=== PATIENT | female | born 1955 | race Caucasian/White ===

== ENCOUNTER 2016-05-18 13:09 | Inpatient (IN) ==
--- NOTE | 2016-05-18 14:33 | PROVIDER DOCUMENTATION ---
HPI-General Adult - General Source: patient, family - History of Present Illness -Gen Adult Nature of Presenting Problems: 61 y/o female presents to the ER with complaint of SOB, cough, fever x2 days. Pt states that she went to [place] a few days ago for intestinal blockage. Pt family states that she has a hx of blockage problems and for that reason she is on TPN treatment. Family of pt states that they were told to come to ER if fever occurred. Location of Pain/Injury: reports: head (headache) Onset/Duration: reports: 2 days ago Timing: reports: still present Associated Symptoms: reports: constipation, fever/chills, headaches, sinus congestion/drainage, shortness of breath, weakness <Amanda Tan - Last Filed: 05/18/16 15:30> <Michel Lopez - Last Filed: 05/18/16 19:29> - General Chief Complaint: General Adult Stated Complaint: Weakness Time Seen by Provider: 05/18/16 14:10 Allergies/Adverse Reactions: Patient Allergies Allergy/AdvReac Type Severity Reaction Status Date / Time No Known Allergies Allergy Verified 05/18/16 13:23 Home Medications: Home Medication List Medication Instructions Recorded Confirmed Last Taken Type Magnesium Oxide [Magnesium] 400 mg PO BID 12/10/12 05/18/16 02/05/15 History Tiotropium [place] Inhaler 1 puff INH RTDAILY 12/10/12 05/18/16 1 Day Ago History [Spiriva] Metoprolol Succinate E.r. [Toprol 100 mg PO DAILY #30 tablet 12/28/12 05/18/16 02/05/15 Rx Xl] Alprazolam [Xanax] 1 mg PO TID 06/18/13 05/18/16 02/05/15 History Hydrocodone/APAP 7.5 mg/325 mg 10 mg PO TID PRN PRN 06/18/13 05/18/16 02/05/15 History [[place]-7.5] Omeprazole [Prilosec] 40 mg PO BID #0 capsule. 06/21/13 05/18/16 1 Day Ago Rx Docusate Sodium [Colace] 100 mg PO DAILY #10 capsule 04/23/16 05/18/16 Unknown Rx Na Phos,M-B/Na Phos,Di-Ba [Fleet 133 ml IL HS PRN PRN #3 enema 04/23/16 Unknown Rx Enema] Albuterol Sulfate [Proair 90 mcg IH TID 05/18/16 05/18/16 Unknown History Respiclick] Budesonide/Formoterol Inhaler 60 puff .SEE ORDER DAILY 05/18/16 05/18/16 Unknown History [Symbicort 160/4.5 Microgm Inhaler] Lisinopril 20 mg PO DAILY 05/18/16 05/18/16 Unknown History Mirtazapine 15 mg PO DAILY 05/18/16 05/18/16 Unknown History Potassium Chloride 10% Liquid 20 meq PO DAILY 05/18/16 05/18/16 Unknown History TPN Electrolytes [TPN Electrolytes] 1,600 ml IV DAILY 05/18/16 05/18/16 Unknown History Review of Systems - Adult - REVIEW OF SYSTEMS - ADULT ROS:: unobtainable per condition Constitutional: reports: chills, fever Eyes: reports: no symptoms reported Ears, Nose, Mouth & Throat: reports: no symptoms reported Cardiovascular: reports: no symptoms reported Respiratory: reports: cough, shortness of breath, wheezing Gastrointestinal: reports: constipation, poor appetite (TPN), other (Short Bowel ) Genitourinary: reports: no symptoms reported Musculoskeletal: reports: no symptoms reported Integumentary: reports: no symptoms reported Neurological: reports: headache/migraines. denies: seizure Psychiatric: reports: no symptoms reported Endocrine: reports: no symptoms reported Hematologic/Lymphatic: reports: no symptoms reported Allergic/Immunologic: reports: no symptoms reported All Other Systems: Reviewed and Negative <Amanda Tan - Last Filed: 05/18/16 15:30> Past History - Adult - PAST MEDICAL HISTORY-ADULT Review of Records: reports: Nursing Assessment Review, Medications Reviewed Cardiovascular: reports: CAD, HTN, [place] Respiratory: reports: asthma, COPD Gastrointestinal: reports: GERD, IBS, other (obstruction) Obstetrical/Gynecological: reports: other (cervical ca) Psychiatric: reports: anxiety, depression Endocrine/Immune: reports: thyroid disorder - PRIOR SURGERIES/PROCEDURES Surgical/Procedure History: reports: appendectomy, cardiac stent, bowel surgery (colon resection), other (partial thyroidectomy) - PRIOR HOSPITALIZATIONS Prior Hospitalizations: reports: for similar symptoms - IMMUNIZATION STATUS Childhood Immunizations: See Nurse Assessment Flu Vaccine: See Nurse Assessment - FAMILY HISTORY Family History: reviewed, not pertinent - SOCIAL HISTORY Smoking: cigarettes <Amanda Tan - Last Filed: 05/18/16 15:30> Physical Exam-General - CONSTITUTIONAL General Appearance: mild distress, thin, slow to respond - EYES Eyes: PERRL/EOMI, pink conjunctivae - HEAD, EARS, NOSE, MOUTH & THROAT HENMT: moist mucous membranes, normal ENT inspection - NECK Neck: supple, normal inspection - RESPIRATORY Respiratory: rhonchi, wheezing - CARDIOVASCULAR Cardiovascular: normal peripheral pulses, regular rate, rhythm - MUSCULOSKELETAL Back Exam: normal inspection, no CVA tenderness Extremity: non-tender, normal inspection - SKIN Integumentary: normal color, warm/dry - NEUROLOGIC Neurologic: grossly normal, no motor/sensory deficits - PSYCHIATRIC Psych/Mental Status: normal mood/affect, normal thought content, normal thought process, oriented x 3 <Amanda Tan - Last Filed: 05/18/16 15:30> Progress - EKG 1 Time of EKG reading by physician:: 15:20 EKG Read and Signed by:: Syeda Garcia EKG Interpretation (*Must complete 3 of following elements*): Normal Rate: 97 Rhythm: normal sinus rhythm [place]: normal (T wave changes) <Amanda Tan - Last Filed: 05/18/16 15:30> - PLAN OF CARE/RESULTS Progress/Plan/Lab Results: Vital Signs - 24 hr 05/18/16 05/18/16 05/18/16 13:18 15:21 16:46 Temperature 98.9 F Pulse Rate 104 H 97 H 103 H Respiratory 20 18 20 Rate Blood Pressure 128/83 127/76 O2 Sat by Pulse 98 92 L Oximetry Orders Category Date Time Status Cardiac Monitoring DIRECTED Care 05/18/16 14:47 Active Saline Loc NOW Care 05/18/16 14:47 Active CHEST-2 VIEWS [RAD] Stat Exams 05/18/16 14:[address] ABD/PELVIS W/ IV CONT ONLY [CT] Stat Exams 05/18/16 14:50 Taken BLOOD CULTURE [BLDCUL] Stat Lab 05/18/16 15:24 Results CBC WITH ELECTRONIC DIFF [HEME] Stat Lab 05/18/16 13:25 Completed CK PROFILE [SP CHEM] Stat Lab 05/18/16 13:25 Completed COMPREHENSIVE METABOLIC PANEL [CHEM] Stat Lab 05/18/16 13:25 Completed Flu Swab [INFLUENZA SCREEN A/B] Stat Lab 05/18/16 15:17 Completed LIPASE [CHEM] Stat Lab 05/18/16 13:25 Completed MAGNESIUM [CHEM] Stat Lab 05/18/16 13:25 Completed PRO B-NATRIURETIC PEPTIDE Stat Lab 05/18/16 13:25 Completed PROTIME WITH INR [COAG] Stat Lab 05/18/16 13:25 Completed PTT [COAG] Stat Lab 05/18/16 13:25 Completed TROPONIN T Stat Lab 05/18/16 13:25 Completed URINALYSIS W/POSS RFLX CULT [URINALYSIS] Stat Lab 05/18/16 14:47 Uncollected 0.9% Sodium Chloride Inj [Ns] 1,000 ml Med 05/18/16 14:47 Discontinued IV 999 mls/hr Albuterol 2.5MG/Ipratrop 0.5MG [Duoneb (A & A)] Med 05/18/16 14:47 Discontinued 3 ml INH NOW ONE Aspirin Med 05/18/16 14:47 Discontinued 325 mg PO STAT STA Aerosol Treatments Routine Oth 05/18/16 14:48 Completed Aerosol Treatments Stat Oth 05/18/16 14:48 Completed EKG [EKG] Stat Ther 05/18/16 14:47 Ordered Laboratory Tests 05/18/16 05/18/16 05/18/16 13:25 13:25 13:25 WBC 6.49 RBC 3.13 L Hgb 9.1 L Hct 27.6 L MCV 88.2 MCH 29.1 MCHC 33.0 RDW Std Deviation 15.3 H Plt Count 142 MPV 12.1 H Immature Gran % (Auto) 0.0 Neut % (Auto) 84.5 H Lymph % (Auto) 6.[address] [place] % (Auto) 8.8 Eos % (Auto) 0.0 Baso % (Auto) 0.2 Immature Gran # (Auto) 0.00 Neut # (Auto) 5.49 Lymph # (Auto) 0.[address] [place] # (Auto) 0.57 Eos # (Auto) 0.00 Baso # (Auto) 0.01 PT INR PTT (Actin FS) Sodium 120 L* Potassium 3.9 Chloride 88 L Carbon Dioxide 21 L Anion Gap 11 BUN 16 Creatinine 0.6 Estimated GFR/1.73 m2 > 60 BUN/Creatinine Ratio 27 Glucose 119 H Calculated Osmolality 245 Calcium 7.8 L Magnesium 1.6 Total Bilirubin 0.42 AST 21 ALT 15 Alkaline Phosphatase 121 H Creatine Kinase 39 Troponin T [id number] Pept 839 H Total Protein 5.6 L Albumin 2.5 L Globulin 3.1 Albumin/Globulin Ratio 0.8 Lipase 15 05/18/16 05/18/16 13:25 13:25 WBC RBC Hgb Hct MCV MCH MCHC RDW Std Deviation Plt Count MPV Immature Gran % (Auto) Neut % (Auto) Lymph % (Auto) [place] % (Auto) Eos % (Auto) Baso % (Auto) Immature Gran # (Auto) Neut # (Auto) Lymph # (Auto) [place] # (Auto) Eos # (Auto) Baso # (Auto) PT 10.7 INR 1.01 PTT (Actin FS) 36.6 H Sodium Potassium Chloride Carbon Dioxide Anion Gap BUN Creatinine Estimated GFR/1.73 m2 BUN/Creatinine Ratio Glucose Calculated Osmolality Calcium Magnesium Total Bilirubin AST ALT Alkaline Phosphatase Creatine Kinase Troponin T < 0.010 Sxz-[id number] Pept Total Protein Albumin Globulin Albumin/Globulin Ratio Lipase - CT/MRI 1 CT Study: Abdomen, Pelvis Impression: See EMR Report (Bibasilar atelectasis and trace left effusion; Multiple hepatic cysts with a massive 12cm R lobe cyst that is larger than 2014 ; Calcified stone in GB lumen and marked GB distention. Also the CBD is dilated to 1cm. It was normal in 2014. Consider occult distal obstruction. Trace fluid around GB; Multiple distended loops of bowel worrisome for obstruction. No specific transition point but there are nonspecific collapsed bowel loops near the root of mesentary so this is a potential point of obstruction.) CT Results: See report - CONSULTS/PCP/HOSPITALIST Notification #1 *Consult/PCP/Hospitalist*: Dr. Reese (Hospitalist) Time Discussed: 19:29 Consult Disposition: Admit - CHANGE OF SHIFT REPORT (ED Provider) Report Given and Care Transferred to:: Dr. Vasquez Time of Transfer: 18:00 Items Pending: CT/MRI Results <Michel Lopez - Last Filed: 05/18/16 19:29> Departure <Amanda Tan - Last Filed: 05/18/16 15:30> - Departure Time of Disposition Order: 19:29 Certified Medical Emergency: Emergent <Michel Lopez - Last Filed: 05/18/16 19:29> - Departure DIAGNOSIS: Hyponatremia, Generalized weakness Bowel obstruction Qualifiers: Intestinal obstruction type: unspecified Qualified Code(s): K56.60 - Unspecified intestinal obstruction Anemia Qualifiers: Anemia type: unspecified type Qualified Code(s): D64.9 - Anemia, unspecified Disposition: ADMITTED INPATIENT 09 Condition: Stable Referrals: Ricco Sepulveda MD [Primary Care Provider] - Attestation - Scribe Verification/Attestation Scribe:: Amanda Tan Acting as Scribe for:: Syeda Garcia Scribe documention review:: This chart was documented by a scribe and accurately reflects the service the provider performed and the decisions made by the provider. <Amanda Tan - Last Filed: 05/18/16 15:30> - Scribe Verification/Attestation Scribe:: Michel Lopez Acting as Scribe for:: Oscar Vasquez Scribe documention review:: This chart was documented by a scribe and accurately reflects the service the provider performed and the decisions made by the provider. <Michel Lopez - Last Filed: 05/18/16 19:29> Physician Attestation
[2016-05-18] MEDS ORDERED: DUONEB (A & A) INH ONE (14:47)
[2016-05-18] MEDS ORDERED: ASPIRIN PO STA (14:47)
[2016-05-18] MEDS ORDERED: NS 1,000 ML IV ONE (14:47)
[2016-05-18 15:09] LABS: MANUAL DIFF NEEDED? NO
[2016-05-18 15:13] LABS: BASO% 0.2 % (0.0-0.8); HEMATOCRIT 27.6 % (37.0-47.0); HEMOGLOBIN 9.1 g/dL (12.0-16.0); LYMPH# 0.42 X1000 (1.2-3.4); LYMPH% 6.5 % (20.5-51.1); MCH 29.1 PG (27-31); MCV 88.2 FL (81-99); MONO# 0.57 X1000 (0.11-0.59); MONO% 8.8 % (1.7-9.3); MPV 12.1 FL (7.4-10.4); NEUT% 84.5 % (42.2-75.2); PLT 142 X1000 (130-400); RBC 3.13 XMIL (4.2-5.4)
[2016-05-18 15:27] LABS: INR 1.01; PROTIME 10.7 Seconds (9.2-11.7); PTT 36.6 Seconds (22.0-36.0)
--- NOTE | 2016-05-18 15:29 | Diag Imaging Result Document ---
PROCEDURE NAME: CHEST-2 VIEWS - 05/18/2016 SEATED AP AND LATERAL RADIOGRAPH OF THE CHEST: COMPARISON: 04/22/2016. FINDINGS: A right PICC line is identified and is stable. The lungs are hyperinflated, stable. There is a stable calcified granuloma at the left lung base. There is stable mild scarring at the lower lung zones bilaterally. The lungs are clear otherwise. There is no definite pleural fluid collection. Cardiac silhouette is stable. IMPRESSION: Essentially stable COPD changes and mild bibasilar scarring. No definite acute pathology.
[2016-05-18 15:42] LABS: AGAP 11; ALBUMIN 2.5 g/dL (3.5-5.0); ALKALINE PHOSPHATASE 121 U/L (32-104); BUN 16 mg/dL (8-22); CALCIUM 7.8 mg/dL (8.8-10.2); CHLORIDE 88 mmol/L (98-107); CK PROFILE 39 U/L (24-173); COSMO 245; GOT 21 U/L (10-30); GPT 15 U/L (10-36); LIPASE 15 U/L (13-60); MAGNESIUM 1.6 mg/dL (1.5-2.7); POTASSIUM 3.9 mmol/L (3.5-5.1); SODIUM 120 mmol/L (136-145); TCO2 21 mmol/L (25-35); TOTAL BILIRUBIN 0.42 mg/dL (0.20-1.00); TOTAL PROTEIN 5.6 g/dL (6.3-8.3)
[2016-05-18] MEDS ORDERED: MORPHINE IV ONE (20:16)
[2016-05-18 22:18] LABS: URINE MICRO REVIEW NEEDED? NO; URINE SOURCE CLEAN CATCH
[2016-05-18 22:28] LABS: BILIRUBIN URINE NEGATIVE (NEGATIVE); BLOOD URINE NEGATIVE (NEGATIVE); COLOR YELLOW; GLUCOSE URINE NEGATIVE (NEGATIVE); LEUKOCYTES URINE NEGATIVE (NEGATIVE); NITRITE URINE NEGATIVE (NEGATIVE); PROTEIN URINE NEGATIVE (NEGATIVE); SP GRAVITY URINE 1.015; TURBIDITY URINE CLEAR (CLEAR); UROBILINOGEN URINE NORMAL (NORMAL)
[2016-05-18 22:30] LABS: UR EPITHELIAL CELLS <10 /HPF (<10); URINE BACTERIA 2+ /HPF; URINE CULTURE NEEDED? YES; URINE RBC <10 /HPF (<10); URINE WBC <10 /HPF (<10)
--- NOTE | 2016-05-18 22:33 | HISTORY AND PHYSICAL ---
CHIEF COMPLAINT: Weakness and not feeling well for several days. HISTORY OF PRESENTING ILLNESS: A 61-year-old female with a history of hypertension and COPD had presented to the emergency department complaining of having weakness and not feeling well. She was evaluated in the ER, she was found to have a low sodium and also there was issues regarding some constipation that she has had for several days. She initially had gone to [facility] several days ago and she apparently had x-rays and scanning done that did show that she had some intestinal obstruction and was told to follow up. On today's imaging it did also show some loops of bowels. However patient is currently asymptomatic. At time my examination she had denied any headache, fever, chills, chest pain, shortness of breath, hemoptysis or weight changes but complained of just not feeling well. PAST MEDICAL HISTORY: Includes hypertension, COPD. PAST SURGICAL HISTORY: None. ALLERGIES: No known drug allergies. CURRENT MEDICATIONS: As listed in the MAR. SOCIAL HISTORY: A 40 pack year history of smoking. Denies any history of alcohol or illicit drug use. FAMILY HISTORY: No history of coronary disease. REVIEW OF SYSTEMS: Twelve point review of systems is as in HPI. Other systems negative. PHYSICAL EXAMINATION: GENERAL: Cooperative, friendly female, she is resting comfortably now. VITAL SIGNS: Temperature 98.9 degrees, pulse 104, respirations 20, blood pressure 128/83, she is saturating 98%. HEENT: Atraumatic, normocephalic. Extraocular movements intact. PERRLA. NECK: No masses. CHEST: Clear to auscultation. CARDIOVASCULAR: Regular rate and rhythm. ABDOMEN: Soft. Positive bowel sounds. EXTREMITIES: No edema. NEURO: She is awake, alert, oriented x3. : No bladder distention. SKIN: Warm. LABORATORIES AND STUDIES: Sodium 120, potassium 3.9, chloride 88, CO2 21, BUN is 16, creatinine 0.6, glucose 119. WBC 6.49, hemoglobin 9.1, hematocrit 27.6, platelets 142,000. ASSESSMENT: A 61-year-old female with a history of hypertension and chronic obstructive pulmonary disease presented to emergency department with complaint weakness. She was found to have laboratories that showed that she was severely hyponatremic and also she had imaging done that did show there was suspicion for intestinal obstruction however patient is asymptomatic. Patient will need hospitalization for further evaluation and management. 1. Hyponatremia. 2. Generalized weakness. 3. Incidental finding of intestinal obstruction on CAT scan. However this needs to be confirmed. 4. Constipation. PLAN: 1. Will admit patient to medical floor. 2. Keep patient n.p.o. and fluid restrict p.o. 3. Continue with IV fluids. 4. Will continue with abdominal exam serially and monitor clinically. 5. Will consider enema for constipation. 6. Will put patient on DVT prophylaxis with SCDs. 7. Continue follow and reassess.
[2016-05-18] MEDS ORDERED: NS 1,000 ML IV SCH (23:08)
[2016-05-18] MEDS ORDERED: ZOFRAN IV PRN (23:08)
[2016-05-19] MEDS ORDERED: VANCOMYCIN IV PER PHARMACY MISC SCH (02:45)
[2016-05-19] MEDS ORDERED: VANCOMYCIN 1,350 MG in NS 250 ML IV ONE (04:00)
[2016-05-19] MEDS: [UNRECOGNIZED DRUG - OTHER] IV SCH ×2 (04:28→09:44)
[2016-05-19] MEDS: ACETAMINOPHEN IV SCH ×2 (04:28→09:44)
[2016-05-19] MEDS ORDERED: OFIRMEV 1000 MG/ISOTONIC SOLN 100 ML IV SCH (06:00)
[2016-05-19 07:24] LABS: BASO% 0.2 % (0.0-0.8); HEMATOCRIT 28.3 % (37.0-47.0); HEMOGLOBIN 9.5 g/dL (12.0-16.0); LYMPH# 0.37 X1000 (1.2-3.4); LYMPH% 6.5 % (20.5-51.1); MANUAL DIFF NEEDED? YES; MCH 29.1 PG (27-31); MCHC 33.6 g/dL (33-37); MCV 86.8 FL (81-99); MONO# 0.41 X1000 (0.11-0.59); MONO% 7.3 % (1.7-9.3); MPV 11.8 FL (7.4-10.4); PLT 149 X1000 (130-400); RBC 3.26 XMIL (4.2-5.4)
[2016-05-19 07:44] LABS: AGAP 16; BUN 12 mg/dL (8-22); CALCIUM 7.8 mg/dL (8.8-10.2); CHLORIDE 101 mmol/L (98-107); COSMO 276; POTASSIUM 3.7 mmol/L (3.5-5.1); SODIUM 138 mmol/L (136-145); TCO2 21 mmol/L (25-35)
[2016-05-19 09:13] LABS: BANDS 10 % (0-1); LYMPHS 6 % (21-51); MONO 7 % (1-9)
[2016-05-19 09:14] LABS: HYPOCHROM 1+; TARGET CELLS OCCASIONAL
--- NOTE | 2016-05-19 09:49 | Diag Imaging Result Document ---
PROCEDURE NAME: CT ABD/PELVIS W/ IV CONT ONLY - 05/18/2016 CT ABDOMEN PELVIS WITH IV CONTRAST ONLY: TECHNIQUE: Exam performed with intravenous contrast only per request of the referring provider. A dose reduction protocol was used. Compared with 09/16/2013. FINDINGS: There is dependent atelectasis at bilateral lung bases. There is a tiny left pleural effusion. There is a calcified granuloma from old granulomatous disease at the left lung base. There is an approximately 12 cm hepatic cyst which has enlarged from approximately 9 cm on the previous exam. There are additional scattered small hepatic cysts. The gallbladder is distended. The common bile duct is distended up to 1.1 cm. There is a possible 0.8 cm noncalcified gallstone in the dependent portion of gallbladder. There is no discrete pancreatic mass or inflammation identified. There are scattered tiny pancreatic calcifications which may relate to chronic pancreatitis and/or vascular calcifications. There are few scattered tiny low-density lesions in the spleen which are nonspecific. There is mild low-density fullness of the right adrenal gland which is stable. The bilateral kidneys enhance homogeneously. There is no hydronephrosis. There are no substantially enlarged lymph nodes identified. There is some mild small-bowel distention with retained fluid. There is nondistended small bowel near the root of the mesentery. The possibility of early or partial small-bowel obstruction cannot be excluded. The patient is status post multiple colon surgeries. There is no abscess identified. There is no free air seen. There is a small amount of free fluid in the pelvis. IMPRESSION: 1. Some mildly distended small bowel with retained fluid. The possibility of early or partial small- bowel obstruction cannot be excluded. A specific transition point is not identified but there is nondistended small bowel near the root of the mesentery. Internal hernia may be a consideration. The small bowel which is distended is only mildly distended at this time, however. 2. Distended gallbladder and common bile duct. Possible small noncalcified gallstone in gallbladder. No discrete biliary obstructing lesion identified. There are scattered tiny pancreatic calcifications which may relate to chronic pancreatitis. There is no acute pancreatic inflammation identified. 3. No abscess. No free air. Small amount of free fluid in the pelvis. The on-call radiologist provided preliminary results at 6:07 p.m. on 05/18/2016. [facility]
[2016-05-19] MEDS ORDERED: ZOSYN 3.375 GM/NS 50 ML IV SCH (14:15)
[2016-05-19 14:33] LABS: FREE T4 0.79 ng/dL (0.93-1.70)
[2016-05-19] MEDS: TYLENOL PO PRN ×2 (15:42→20:45)
[2016-05-19] MEDS: PROTONIX IV SCH (15:43)
[2016-05-19] MEDS: SODIUM CHLORIDE 0.9% INJ SCH (15:43)
[2016-05-19] MEDS: NS 1,000 ML IV SCH (15:43)
--- NOTE | 2016-05-19 18:01 | PROGRESS NOTE ---
DATE: 05/19/2016 SUBJECTIVE: The patient is awake and alert. She states that she does not have an appetite. The patient did have a fever of 103 this morning. OBJECTIVE: Vital signs: Temperature 100.6 degrees, blood pressure 148/93, heart rate 102, respirations 18, O2 saturations 94% on room air. General: This is an elderly female lying comfortably in bed in no acute distress. Head: Normocephalic, atraumatic. Heart: S1, S2. Normal. Lungs: Clear to auscultation bilaterally. No crackles. No rales. Abdomen: Positive bowel sounds. Soft, nontender, nondistended. Extremities: No edema. No cyanosis. No calf tenderness. Neurologic: The patient is alert and oriented x3. LABS: White blood cell count 5.6, hemoglobin 9.5, hematocrit 28, platelets 149,000. Sodium 138, potassium 3.7, chloride 101, CO2 21, BUN 12, creatinine 0.6, glucose 106, magnesium 1.8, calcium 7.8. CT of the abdomen and pelvis reveals a mildly distended small bowel with retained fluid with the possibility of an earlier partial small bowel obstruction cannot be excluded. Distended gallbladder and common bile duct. ASSESSMENT AND PLAN: 1. High fever with gram-positive cocci bacteremia. Will follow up on the blood culture results. Will continue the Zosyn and vancomycin. Will also consult ID for further recommendations. Will also check a CT of the chest to look for occult infection. 2. Distended gallbladder and common bile duct. Will check an abdominal ultrasound and consult the general surgeon for further recommendations. 3. Hyponatremia. Resolved. 4. Distended small bowel with retained fluid. Again will await the recommendations from the general surgeon. Will keep the patient NPO for now. 5. Gastrointestinal prophylaxis. Will start the patient on IV Protonix. 6. Deep vein thrombosis prophylaxis. Will start the patient on Lovenox.
--- NOTE | 2016-05-19 18:21 | Diag Imaging Result Document ---
PROCEDURE NAME: US ABDOMEN-COMPLETE - 05/19/2016 ULTRASOUND ABDOMEN: COMPARISON: Examination is correlated with a 05/18/2016 CT abdomen. FINDINGS: The gallbladder is mildly distended, but appears less distended compared to the recent CT scan. There is sludge in the gallbladder lumen. There are a few small shadowing gallstones in the gallbladder. The gallbladder murillo are possibly slightly thickened. The common bile duct is normal caliber at 5-6 mm. There is no obvious sludge or stone identified in the visualized portion of the common bile duct. The common bile duct appears to have decreased in caliber compared to the recent CT scan. There is an approximately 12 cm hepatic cyst. There are additional small hepatic cysts. There are no abnormalities of the spleen identified. There is no ascites seen. There are no abnormalities of the bilateral kidneys identified. There is no hydronephrosis. Visualized portions of the pancreas are unremarkable. Abdominal aorta and IVC appear normal caliber. IMPRESSION: 1. Mildly distended gallbladder. The gallbladder appears less distended compared to the recent CT scan. There are a moderate amount of sludge and a few small gallstones in the gallbladder. The gallbladder murillo are possibly mildly thickened. 2. The visualized common bile duct is normal caliber at 5-6 mm. The common bile duct appears less distended when compared to the recent CT scan. 3. Large hepatic cyst which measures approximately 12 cm. Additional small hepatic cysts. [facility]
--- NOTE | 2016-05-19 18:26 | Diag Imaging Result Document ---
PROCEDURE NAME: ABDOMEN FLAT/UPRIGHT - 05/19/2016 FLAT AND UPRIGHT RADIOGRAPH THE ABDOMEN: COMPARISON: 04/22/2016. FINDINGS: There are several gas-distended loops of bowel with small air-fluid levels in the pelvis. Most of this appears to be colonic, but there probably are some mildly distended small bowel loops. Metallic clips and rianna project over the pelvis, stable. The liver is prominent, but stable. There is no evidence of large-volume free abdominal gas. IMPRESSION: Nonspecific gaseous distention of bowel as described.
--- NOTE | 2016-05-19 18:47 | Diag Imaging Result Document ---
PROCEDURE NAME: CT THORAX W/O CONTRAST - 05/19/2016 CT THORAX WITHOUT CONTRAST: No contrast administered per request of the referring provider. A dose reduction protocol was used. COMPARISON: 06/19/2013. FINDINGS: There are mild emphysematous changes which are most prominent at the lungs apices. There is atelectasis of the left lower lobe, which was not present on the previous exam. Underlying consolidation in the left lower lobe cannot be excluded. The left upper lobe appears essentially clear. The right lung appears essentially clear except for some dependent atelectasis. There are trace bilateral pleural effusions. There is no pneumothorax identified. There are no substantially enlarged mediastinal lymph nodes identified. There are calcified granulomas and calcified hilar lymph nodes on the left from old granulomatous disease. Mild emphysematous changes. IMPRESSION: Left lower lobe atelectasis. Underlying left lower lobe consolidation cannot be. Tiny bilateral pleural effusions.
[2016-05-20] MEDS ORDERED: TORADOL IV ONE (00:26)
[2016-05-20] MEDS ORDERED: VANCOMYCIN 1,250 MG in NS 250 ML IV SCH (04:00)
[2016-05-20] MEDS: TYLENOL PO PRN ×2 (05:22→21:40)
[2016-05-20] MEDS: NS 1,000 ML IV SCH ×2 (05:27→17:14)
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
[2016-05-20 06:48] LABS: MANUAL DIFF NEEDED? NO
[2016-05-20 07:06] LABS: BASO% 0.2 % (0.0-0.8); HEMATOCRIT 25.3 % (37.0-47.0); HEMOGLOBIN 8.5 g/dL (12.0-16.0); IMM GRAN# 0.03 X1000 (0.0-0.04); IMM GRAN% 0.6 % (0.0-0.5); LYMPH# 0.51 X1000 (1.2-3.4); LYMPH% 9.5 % (20.5-51.1); MCH 28.9 PG (27-31); MCHC 33.6 g/dL (33-37); MCV 86.1 FL (81-99); MONO# 0.38 X1000 (0.11-0.59); MONO% 7.1 % (1.7-9.3); NEUT% 82.6 % (42.2-75.2); PLT 153 X1000 (130-400); RBC 2.94 XMIL (4.2-5.4)
[2016-05-20 07:20] LABS: AGAP 15; ALBUMIN 2.2 g/dL (3.5-5.0); ALKALINE PHOSPHATASE 110 U/L (32-104); BUN 13 mg/dL (8-22); CALCIUM 7.6 mg/dL (8.8-10.2); CHLORIDE 98 mmol/L (98-107); COSMO 265; GOT 20 U/L (10-30); GPT 14 U/L (10-36); IRON SATURATION 11 %; POTASSIUM 3.2 mmol/L (3.5-5.1); SODIUM 132 mmol/L (136-145); TCO2 19 mmol/L (25-35); TIBC 132 ug/dL; TOTAL BILIRUBIN 0.61 mg/dL (0.20-1.00); TOTAL IRON 14 ug/dL (49-151); TOTAL PROTEIN 5.3 g/dL (6.3-8.3); UNBOUND IRON 118 ug/dL (112-346)
[2016-05-20 07:35] LABS: FERRITIN 337 ng/mL (13-150)
--- NOTE | 2016-05-20 08:04 | PROGRESS NOTE ---
DATE: 05/20/2016 SUBJECTIVE: She was sleeping this morning. I did not wake her but she was in no acute distress. OBJECTIVE: Vital signs: Reviewed. She remains febrile and tachycardic. LABORATORY DATA: Labs reviewed. White count 5, hematocrit 25. Electrolytes are improving. Sodium is up to 132, potassium is down to 3.2, creatinine 0.6. LFTs are okay. ASSESSMENT AND PLAN: A 61-year-old female with history of cervical cancer, complicated surgical history, who has short bowel syndrome, presents with PICC line associated bacteremia and what appears to be more chronic type partial bowel obstruction. I have recommended a full liquid diet with nutritional supplements via Boost or Ensure. She is lactose intolerant, so will need to take this into consideration. When she is taking adequate caloric intake, it would be reasonable for her to potentially come off TPN, but she is profoundly cachectic and malnourished and has low albumin and complications associated with PICC line.
--- NOTE | 2016-05-20 08:23 | Diag Imaging Result Document ---
PROCEDURE NAME: ABDOMEN FLAT/UPRIGHT - 05/20/2016 FLAT AND UPRIGHT RADIOGRAPH OF THE ABDOMEN: COMPARISON: 05/19/2016. FINDINGS: Nonspecific, mildly gas-distended loops of bowel are again identified. However, there has been interval improvement. There is nothing specific for obstruction. There is no evidence of large-volume free abdominal gas. IMPRESSION: Suggestion of slight improvement of the mild gas distention of bowel.
--- NOTE | 2016-05-20 08:23 | CONSULTATION ---
DATE OF CONSULTATION: 05/19/2016 HISTORY OF PRESENT ILLNESS: This is a 61-year-old female, patient of Dr. Gisella Evangelista, who presents with multiple issues. She is on chronic TPN for presumed short bowel syndrome. She has a history of radiation for cervical cancer, multiple exploratory laparotomies with colon resections and bowel resection for small bowel obstructions, complication related to her radiation. She presented with general malaise and weakness. Found to be bacteremic. [place] to be related to a PICC line for TPN. CT scan was obtained and that showed some chronic dilation but no obvious transition point of her small bowel. No evidence of acute pathology. Mildly dilated gallbladder with some possible stones. She denies any pain above her baseline which is chronic since the mid . She does have chronic nausea but no vomiting. She is having bowel function, passing gas. Her stools are for the most part liquid. PAST MEDICAL HISTORY: Hypertension, COPD, history of cervical cancer. PAST SURGICAL HISTORY: She has had radiation for cervical cancer, multiple colon resections, bowel resections. Most recently in 2012 Dr. Durbin did an exploratory laparotomy with lysis of adhesions and repair of enterotomy. She has a history of coronary disease and coronary stents. SOCIAL HISTORY: She has an extensive smoking history, pack a day. Denies alcohol or drugs. She does have a daughter here with her. FAMILY HISTORY: Coronary disease. REVIEW OF SYSTEMS: Ten point negative other than what is mentioned in her HPI. PHYSICAL EXAMINATION: Vital signs: Temperature as high as 103.2 degrees today, pulse 95, blood pressure 159/87, oxygen saturation 97% on room air. General: She is alert, but confused at times. She speaks but incoherently at moments. Cardiovascular: Normal rate. Regular rhythm. Pulmonary: No increased work of breathing. Abdomen: Soft. Mildly distended and mildly tympanic but nontender. There is a large midline incision. Integumentary: Otherwise warm and dry without jaundice. LABS: I reviewed her labs. White count is 5, hematocrit is 28, platelets are 149,000. Creatinine 0.6. She had a lipase that was normal. LFTs: Bilirubin is 0.42, alkaline phosphatase mildly elevated at 121, AST 21, ALT 15. Troponins are normal. Sodium was low at 120 when she came in. Blood culture is positive for gram-positive cocci. CT scan of the abdomen and pelvis on the shows a distended gallbladder and common bile duct and some calcifications in the pancreas, possible gallstones, mildly distended small bowel with retained fluid. ASSESSMENT AND PLAN: This is a 61-year-old female with a complicated surgical history. She carries a diagnosis of possible short-gut syndrome and chronic small bowel obstructions. She does not seem clinically obstructed at this point anymore than her baseline level. She is bacteremic from a PICC line infection and is febrile with multiple SIRS criteria later to this. She is on IV antibiotics. PLAN: I would recommend nutritional supplementation with Boost, maintaining a full liquid diet and never advancing beyond this. I discussed low residual diet with the family. If she becomes completely obstructed with lack of flatus and vomiting she will need an NG tube, although I think we can hold off at this point given her benign exam and the fact that she is not clinically obstructed. Continuing to monitor her bacteremia is of most medical priority at this point.
[2016-05-20] MEDS: LOVENOX SUBQ SCH (09:54)
--- NOTE | 2016-05-20 10:49 | Diag Imaging Result Document ---
PROCEDURE NAME: HIDA SCAN W/ EJECTION FRACTION - 05/20/2016 NUCLEAR MEDICINE HIDA SCAN: COMPARISON: None available. FINDINGS: 5.8 mCi of technetium-99m Choletec was administered intravenously. Photopenia is noted at the dome of the liver corresponding to the very large right hepatic lobe cyst that can be seen on a recent CT. Otherwise, there is normal hepatocellular uptake. Activity is seen in the gallbladder beginning at about 12 minutes post administration. Activity is seen in small bowel beginning at about 26 minutes post administration. 8 ounces of liquid fatty meal was then administered orally. The calculated gallbladder ejection fraction was 88%. IMPRESSION: 1. Focal photopenia at the dome of the liver corresponding to a large simple cyst seen on previous CT. 2. Essentially unremarkable, otherwise.
[2016-05-20 12:45] LABS: URINE CULTURE NEEDED? NO; URINE MICRO REVIEW NEEDED? NO; URINE SOURCE CATH
[2016-05-20 12:51] LABS: BILIRUBIN URINE NEGATIVE (NEGATIVE); BLOOD URINE SMALL (NEGATIVE); COLOR YELLOW; GLUCOSE URINE NEGATIVE (NEGATIVE); LEUKOCYTES URINE NEGATIVE (NEGATIVE); NITRITE URINE NEGATIVE (NEGATIVE); PH URINE 5.5; PROTEIN URINE TRACE mg/dL (NEGATIVE); SP GRAVITY URINE 1.015; TURBIDITY URINE HAZY (CLEAR); UR EPITHELIAL CELLS <10 /HPF (<10); URINE BACTERIA NEGATIVE /HPF; URINE RBC <10 /HPF (<10); URINE WBC <10 /HPF (<10); UROBILINOGEN URINE NORMAL (NORMAL)
[2016-05-20] MEDS: SODIUM CHLORIDE 0.9% INJ SCH (13:57)
[2016-05-20] MEDS: PROTONIX IV SCH (13:57)
--- NOTE | 2016-05-20 16:32 | PROGRESS NOTE ---
DATE: 05/20/2016 SUBJECTIVE: The patient has been febrile all night. The patient was noted to be confused this afternoon and an MRI of the brain was done that revealed an embolic cva. OBJECTIVE: Vital Signs: Temperature 102.3 degrees, blood pressure 157/97, heart rate 112, respirations 20, O2 saturation is 96% on room air. General: This is a chronically ill-appearing, elderly female, lying in bed, in no acute distress. Head: Normocephalic, atraumatic. Heart: S1, S2. Normal. Regular rate and rhythm. Lungs: Clear to auscultation bilaterally. No wheezes. No rales. No rhonchi. Abdomen: Positive bowel sounds. Soft, nontender, nondistended. Extremities: No edema. No cyanosis. No calf tenderness. Neurologic: The patient is alert and oriented x3. No focal neurologic deficits noted. LABS: White blood cell count 5.3, hemoglobin 8.5, hematocrit 25, platelets 153, 000. Sodium 132, potassium 3.2, chloride 98, CO2 19, BUN 13, creatinine 0.6, glucose 100, calcium 7.6, iron 14, albumin 2.2. ASSESSMENT AND PLAN: 1. Enterococcus faecalis bacteremia secondary to an infected PICC line. The patient was switched to ampicillin today by . 2. Urinary tract infection. So far the urine culture is growing gram-positive cocci. Continue on ampicillin. 3. Embolic CVA. Will start aspirin and order a 2d echo and carotid doppler. The patient may require a KAY. Neurology consult. 4. Dilated common bile duct. The patient had a HIDA scan today that was noted to be unremarkable. 5. Severe protein calorie malnutrition. Continue on ensure. 6. Gastrointestinal prophylaxis. Continue on IV Protonix. 7. Deep vein thrombosis prophylaxis. Continue on Lovenox. [facility]
--- NOTE | 2016-05-20 16:56 | CONSULTATION ---
DATE OF CONSULTATION: 05/20/2016 REASON FOR CONSULTATION: Evaluation of this patient with what appeared to be slightly distended gallbladder and also possible gallstones and sludge. HISTORY OF PRESENT ILLNESS: Mrs. Paula is a 61-year-old lady who is known to me from previous multiple encounters since a few years. The patient has a long history of intestinal problems. She was admitted to the hospital because of weakness. Apparently she has gone to [facility]. At that time, x-rays were done and there was suspicion of a bowel obstruction which was not confirmed, therefore she was sent home. Eventually she came to the emergency room. At that time, she was only complaining of weakness. She did not have any nausea or vomiting. No significant abdominal pain. She had small bowel movements and had been passing gas for the past week prior to the admission. The patient usually has chronic constipation. She is unable to eat anything. She also has history of chronic diarrhea. If she eats something, she states that it straight follows through. However this time when she came in, nothing has changed except she was very weak. On evaluation with an ultrasound and also CT scan of the abdomen and pelvis, the patient was found to have a thickened gallbladder with gallbladder sludge and small gallstones. Therefore I was asked to see the patient. PAST MEDICAL HISTORY: She has very long history of intestinal problems which includes repeated admission to the hospital with partial and sometimes complete small-bowel obstruction. She has undergone several surgeries for that, most of them were adhesiolysis. She was operated on by Dr. Jeter and Dr. chowdhury in the past. The patient had intermittent constipation and mostly diarrhea. She has been losing a lot of weight last year and was referred to [facility] by Dr. Sepulveda who was her previous primary care physician, and she was admitted in [facility] and evaluation was done but they did not recommend any surgery. They ordered her a low residue diet and, she had great difficulty in keeping her nutritional status up. The patient at that time had a albumin level of 1.5-2, and that resulted in a lot of retraction of fluids and significant edema. The patient was seen by Cardiology several times in the past for evaluating for congestive heart failure and ischemic heart disease. Her vba programmer is Fco Kauffman. All her problems started quite a few years ago when she had cervical cancer and this was treated with surgery as well as radiation therapy. During radiation apparently the small bowel and perhaps the colon was coating and she had radiation induced colitis as well as diverticulosis of the colon and also perhaps significant atrophy of the small bowel. It was quite unusual for people who had cervical cancer during that era to get radiation and eventually get into trouble with malabsorption syndrome This patient therefore developed malabsorption syndrome and a lot of scar tissue formation which resulted in multiple intestinal obstructions. Her sigmoid colon was very nodular with a lot of scarring a few years ago when I did a colonoscopy. At that time, I referred her to Dr. Chowdhury, who did a colectomy for her, and after that, several abdominal surgeries were done because of intermittent obstruction. The patient had been doing fairly well for a few years, but nutritional status is very low always and she has been losing weight significantly. About 2 or 3 months ago patient changed her primary care physician and started going to Dr. Gisella Evangelista who eventually decided to give her TPN. The patient had a PICC line placed and she was getting TPN 24 hours a day in the beginning with the infusion agency. The patient's general status improved and albumin improved. She did not have any significant swelling of the extremities. The patient then was eating small amount of low residue diet which includes mostly liquids and was getting along fairly well. She then was changed to TPN at night. She saw me on 05/06/2016. At that time, he complained of fatigue, abdominal pain and bloating. She had fecal impaction about 2 weeks prior to that and had gone to the emergency room, and she was given laxatives with improvement. I had put her on MiraLAX 17 g b.i.d. at that time, to prevent any further serious constipation and she was continued on mostly liquid diet. Other pertinent past medical history includes: 1. Coronary artery disease with history of myocardial infarction and stent placement x3. 2. Repeated small bowel obstruction, adhesiolysis and colon resection. 3. Cervical cancer status post radiation therapy. 4. Hypertension. 5. Chronic obstructive pulmonary disease with emphysema. 6. Chronic diarrhea secondary to partial small bowel obstruction and short bowel syndrome. 7. Gastroesophageal reflux disease. 8. Malabsorption syndrome. 9. Malnutrition. 10. Chronic superficial gastritis without hemorrhage. 11. Chronic iron-deficiency anemia. PAST SURGICAL HISTORY: 1. Colon resection x1. 2. Adhesiolysis, I believe in 2012. 3. Angioplasties x2 and stent placement. 4. Appendectomy. 5. Parathyroidectomy. 6. Elbow surgery. SOCIAL HISTORY: Patient still continues to smoke, she had been a heavy smoker which resulted in COPD for her. ALLERGIES: No known drug allergies. FAMILY HISTORY: 1. Diabetes mellitus. 2. Lymphoma in her father. 3. Grandfather had some sort of cancer. 4. Mental illness. 5. Heart disease. 6. Kidney disease. 7. Hypertension. GASTROINTESTINAL REVIEW OF SYSTEMS: The patient denies any significant nausea and vomiting. She has some heartburn. She has intermittent constipation and diarrhea. She also has vague abdominal discomfort which is usual for her. She also has some bloating, especially when she does not move her bowels. The appetite is poor. She is feeling generally weak. There is no fever or chills. PHYSICAL EXAMINATION: General: The patient is alert, oriented x3. She is extremely emaciated which is usual for her. Does not see seem to be in any acute distress. She looks pale. Vital Signs: The temperature is 101.1 degrees, the pulse rate is 98, respiratory rate is 18, blood pressure is 160/95. At the time of entry yesterday her temperature was 103.0 degrees. Skin: Warm and dry. Mucous membranes are moist. Neck: Supple. There is no thyromegaly. Cardiac: Both heart sounds are heard. Rhythm is regular. I could not hear any murmur. Lungs: Reveal hypertension, hyperresonance on percussion with bilateral basilar crackles. She does not have any wheezing at this point. Abdomen: Slightly protuberant. There is tenderness in the epigastrium. No point tenderness in the right upper quadrant. Bowel sounds are slightly hyperactive. Scars of previous surgery present. I could not feel liver or spleen. Extremities: 1+ pitting edema present. LAB DATA: At the time of entry, WBC count was 6.43, hemoglobin was 9.1, hemoglobin hematocrit was 27.6. Today, the WBC count is 5.36, hemoglobin 8.5, hematocrit 25.3, the platelet count is 153,000. Sodium was 132, potassium 3.2, chloride 98, CO2 is 19. The BUN is 13, creatinine 0.6. Calcium is 7.6. Iron is 14. TIBC is 132, percent saturation is 11, ferritin is 337. Total bilirubin is 0.61, AST is 20, ALT is 14, alkaline phosphatase is 110. The total protein is 5.3, albumin is 2.2. B12 is 355. TSH is 0.45. Vitamin D level is 15.3. On 05/18 the sodium was 120, the patient probably felt quite weak at that time. IMPRESSION: 1. Malabsorption syndrome secondary to short bowel syndrome. 2. Chronic diarrhea secondary to fat malabsorption. 3. Intermittent constipation due to adhesions and history of intermittent obstruction. 4. Severe malnutrition. 5. Most likely chronic cholecystitis. RECOMMENDATION: HIDA scan is being done at this point. I do not know the results of it. If the patient has acute cholecystitis as evidenced by no opacification of the gallbladder, she may need a cholecystectomy. Otherwise at this point I will not recommend surgery. The patient does not seem to have any bowel obstruction requiring surgery. 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 She may have adhesions causing partial obstruction but she is not a candidate for any kind of serious surgery at this point in the absence of acute obstruction. The patient was going round and round for a long time with severe malnutrition with severe hypoalbuminemia and increased leg swelling in the past. Her situation has improved only after starting the TPN. Therefore the TPN should be reinstituted in this lady and she should be allowed to eat whatever she can tolerate. We had gone through all these steps before and the only thing which kept her alive was total parenteral nutrition. She is not a candidate for enteral nutrition because of her intestinal problems. I agree with Dr. Bennie Luther regarding giving her a low residue diet which I have recommended in the past as an outpatient, and also a high protein diet with low fat. The dietitian needs to be involved in this care and advice should be given. In addition to that, consideration should be made for putting in a permanent port so that she can be given TPN at least 10-12 hours every night. At present the patient is probably septic secondary to mixed gram-positive cocci, that is being addressed now by Dr. Multani.
[2016-05-20] MEDS ORDERED: ASPIRIN EC PO ONE (17:03)
--- NOTE | 2016-05-20 17:06 | Diag Imaging Result Document ---
PROCEDURE NAME: MRI BRAIN W/O CONTRAST - 05/20/2016 MRI OF THE BRAIN WITHOUT GADOLINIUM.: COMMENT: Some of the images are degraded by patient motion. FINDINGS: There is a focus of increased T2-weighted signal intensity in the subcortical white matter of the left posterior parietal lobe. There is also a small focus of increased signal intensity in the periventricular white matter adjacent to the posterolateral ventricle on the right side. There is some prominence of the perivascular spaces. There are several small foci present in the subcortical white matter and cortex of the posterior right parietal lobe as well as in the previously described area of the periventricular white matter posteriorly on the right as well as the subcortical white matter of the posterior left parietal lobe. The largest of these areas of restricted diffusion is on the left side measuring a little over 8 mm in greatest dimension. These foci would be within the watershed zone between the posterior circulation and the middle cerebral circulation. It is possible that they arise from the basilar artery or from one of the vertebral arteries. There is a questionable tiny focus in the right cerebellar hemisphere which is not correlated with any T2 weighted abnormality in the cerebellum. There are no previous MRI studies available for comparison. IMPRESSION: Foci of acute or subacute ischemia in the posterior parietal lobes bilaterally. The possibility of an embolic source should be considered. The findings were discussed with Dr. Mcgovern by telephone at [phone]. [facility]
[2016-05-20] MEDS ORDERED: MOTRIN PO PRN (17:07)
[2016-05-20] MEDS: AMPICILLIN 2 GM/NS 100 ML IV SCH ×2 (17:15→21:47)
[2016-05-20] MEDS ORDERED: OFIRMEV 1000 MG/ISOTONIC SOLN 100 ML IV ONE (17:15)
--- NOTE | 2016-05-20 17:28 | PROGRESS NOTE ---
DATE: 05/20/2016 PRESENT ILLNESS: The patient has a an enterococcal bacteremia and UTI. It is certainly possible that the patient initially had an enterococcal urinary tract infection which became bacteremic. I think it is also a possibility that the patient's bacteremia originated from the PICC and then that secondarily involved the kidneys. MEDICATIONS: The patient is on vancomycin. PHYSICAL EXAMINATION: Vital Signs: Temperature earlier was 102.3. The latest temperature is 101.1 degrees, pulse 98, respirations 18, blood pressure 160/95. General: This is an ill- appearing, middle-aged female who is in no acute distress. Lungs: Clear to auscultation. Cardiovascular: Heart rate is regular. Gastrointestinal: Abdomen and flank soft and nontender. LAB AND X-RAY: The patient's CBC today showed a white count of 5360, hemoglobin 8.5, and platelet count 153,000. Creatinine is 0.6. GFR is greater than 60. The immunoglobulin levels are normal. Both blood cultures grew enterococcus. The urine is growing a gram-positive coccus. The patient's catheter tip culture is pending. HIDA scan shows no blockage. ASSESSMENT: The patient has an enterococcal urinary tract infection and bacteremia. I have switched her to ampicillin to which the organism in vitro is susceptible as well as vancomycin. Also I plan to go ahead and get an echocardiogram to look for the possibility of endocarditis. 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 The patient also has a past history of pneumonia and Clostridium difficile diarrhea. [facility]
[2016-05-20] MEDS ORDERED: NORCO-7.5 PO PRN (18:37)
[2016-05-20] MEDS: LIPITOR PO SCH (21:47)
[2016-05-21] MEDS: NS 1,000 ML IV SCH ×3 (02:32→20:12)
[2016-05-21] MEDS: AMPICILLIN 2 GM/NS 100 ML IV SCH ×4 (03:50→21:25)
[2016-05-21 06:36] LABS: MANUAL DIFF NEEDED? NO
[2016-05-21 06:45] LABS: BASO% 0.3 % (0.0-0.8); EOS# 0.01 X1000 (0.0-0.7); EOS% 0.3 % (0.0-10.0); HEMATOCRIT 26.5 % (37.0-47.0); HEMOGLOBIN 8.9 g/dL (12.0-16.0); LYMPH# 0.55 X1000 (1.2-3.4); LYMPH% 14.5 % (20.5-51.1); MCHC 33.6 g/dL (33-37); MCV 86.3 FL (81-99); MONO# 0.42 X1000 (0.11-0.59); MONO% 11.1 % (1.7-9.3); MPV 11.6 FL (7.4-10.4); NEUT% 73.8 % (42.2-75.2); PLT 186 X1000 (130-400); RBC 3.07 XMIL (4.2-5.4)
[2016-05-21 07:24] LABS: AGAP 12; ALKALINE PHOSPHATASE 86 U/L (32-104); BUN 16 mg/dL (8-22); CALCIUM 7.5 mg/dL (8.8-10.2); CHLORIDE 102 mmol/L (98-107); COSMO 275; GOT 19 U/L (10-30); GPT 15 U/L (10-36); POTASSIUM 2.9 mmol/L (3.5-5.1); SODIUM 137 mmol/L (136-145); TCO2 23 mmol/L (25-35); TOTAL BILIRUBIN 0.49 mg/dL (0.20-1.00); TOTAL PROTEIN 4.8 g/dL (6.3-8.3)
[2016-05-21 07:56] LABS: SED RATE 75 mm/hr (0-20)
[2016-05-21] MEDS: LOVENOX SUBQ SCH (09:46)
[2016-05-21] MEDS: ASPIRIN EC PO SCH (09:46)
[2016-05-21] MEDS: NORCO-10 PO PRN ×2 (09:47→23:26)
[2016-05-21] MEDS: XANAX PO PRN ×2 (09:52→20:50)
--- NOTE | 2016-05-21 11:19 | PROGRESS NOTE ---
DATE: 05/21/2016 SUBJECTIVE: She feels okay. She is more alert she states and thinking more clearly. Fever temperature curve is improving. She is eating and having bowel functions that are normal for her. OBJECTIVE: She remains febrile although 98.1 this morning, but high as 102.6 in the last 24 hours.General: She is more alert. There is no scleral icterus. Abdomen: Soft, nontender, nondistended. Integument: Warm and dry. She is very cachectic thin appearing lady. White count down to 3 which is a little concerning, white count 26. Creatinine is 0.6. Blood cultures are growing gram-positive cocci. She also has Enterococcus faecalis in her urine. ASSESSMENT AND PLAN: A 61-year-old female with multiple medical issues. She also has what appears to be possible short bowel syndrome with chronic bowel obstruction. She is not clinically obstructed, but has more chronic appearing changes on her CT scan. She is also profoundly bacteremic from a PICC line infection TPN. Regarding surgical management, I think not a surgical indication at this time. She would be very high risk given her multiple previous abdominal operations, radiation and malnourishment. As such, we will not plan operation at this point. I have discussed this with the family and I do not think she needs an operation any way. As far as her nutrition if she could adequately take enough nutritional supplementation with Boost and a modified full liquid diet going forward indefinitely, it would probably avoid TPN. However, this may be difficult for her to do and we will have to make an assessment in the future. We will continue to follow along.
--- NOTE | 2016-05-21 11:35 | PROGRESS NOTE ---
DATE: 05/21/2016 This patient has short-bowel syndrome and she was admitted with what appeared to be sepsis secondary to her PICC line infection. The PICC line was removed and currently the patient is doing much better. Her fever is gone. Last time when she had a temperature was last night which was 100 degrees Fahrenheit. She is tolerating a full liquid diet, consuming enough calories by way of different liquids, and also Ensure 2-3 cans per day. The patient has loose stools and sometimes liquid stools. She said that she is feeling better since she started on the diet. When I talked to her about continuing the TPN, she was quite reluctant. She said that "if I can manage with only the diet for summertime, I would prefer that." If she tolerates the diet it can be managed that way, but she has to follow the diet strictly which she said she is agreeable. Although in the past I have explained to her about her a liquid diet with Ensure supplements, she has not been able to keep it up. PHYSICAL EXAMINATION: General: The patient is alert, oriented x3, emaciated. Vital Signs: The temperature is 98.1 degrees, the pulse is 95 per minute, respiratory rate is 23, blood pressure is 165/99. Skin: She looks pale. Warm and dry. Mucous membranes are moist. Neck: Supple. There is no thyromegaly. Cardiac: Both heart sounds are heard. Rhythm is regular. No murmur. Lungs: Reveal bibasilar crackles. No wheezing present. Abdomen: Protuberant. Bowel sounds are heard. Extremities: No significant edema. LABORATORY DATA: The WBC count is 3.80, hemoglobin 8.9, hematocrit 26.5. The platelet count is 186,000. Sodium today is 137, potassium 2.9, chloride is 102, CO2 is 23. BUN is 16, creatinine 0.6, the albumin is 2. IMPRESSION: 1. Short-bowel syndrome. 2. Chronic diarrhea. 3. Malabsorption syndrome. 4. Malnutrition. RECOMMENDATION: The patient at this point is following the diet and hopefully her nutritional status is improved. I told her we can always put a central line and the start on the TPN if she ever wishes that. Currently we will continue on a full liquid diet. GI will stand by from now on.
[2016-05-21] MEDS: SODIUM CHLORIDE 0.9% INJ SCH (14:12)
[2016-05-21] MEDS: PROTONIX IV SCH (14:12)
[2016-05-21] MEDS ORDERED: KLOR-CON PO ONE (14:13)
[2016-05-21] MEDS: VITAMIN D PO SCH (14:34)
--- NOTE | 2016-05-21 15:51 | PROGRESS NOTE ---
DATE: 05/21/2016 PRESENT ILLNESS: Patient has enterococcal bacteremia. It either started from her PICC and then involved the kidney to give an enterococcal urinary tract infection or it started as an enterococcal urinary tract infection which became bacteremic and seeded the PICC. MEDICATIONS: The patient is on ampicillin. PHYSICAL EXAMINATION: Vital Signs: Temperature is 98.2 degrees, pulse 86, respirations 17, blood pressure 130/83. General: This is a somewhat ill-appearing, middle-aged female. She is in no acute distress. She looks much better today than she did in the past few days. She is smiling and has been able to eat more especially taking protein drinks and some of them mixed with ice cream. Lungs: Clear to auscultation. Cardiovascular: Regular heart rate. Abdomen: Soft and nontender. LAB AND X-RAY: The patient's catheter tip is growing gram-positive cocci. Liver function studies are normal. The patient's CBC shows a white count of 3.8, hemoglobin 8.9, platelet count of 186,000. Creatinine is 0.6. GFR is greater than 60. I do not see the report at this time of the patient's echocardiogram. ASSESSMENT AND PLAN: The patient has enterococcal bacteremia and urinary tract infection. I have gone ahead and ordered repeat blood cultures today. The patient will need 14 days of treatment from when her first blood culture is sterile. COMORBIDITIES: Include that she has COPD, congestive heart failure, small bowel syndrome secondary to radiation side effects which occurred when she was receiving radiation therapy for her malignancy. The patient also has a history of pneumonia and Clostridium difficile diarrhea.
--- NOTE | 2016-05-21 15:54 | PROGRESS NOTE ---
DATE: 05/21/2016 SUBJECTIVE: The patient is more awake and alert today. She states that she feels a whole lot better. She was afebrile overnight. OBJECTIVE: Vital Signs: Temperature 98.2 degrees, blood pressure 130/83, heart rate 86, respirations 17, O2 saturation is 94% on room air. General: This is a chronically ill-appearing, elderly female, lying in bed, in no acute distress. Head: Normocephalic, atraumatic. Heart: S1, S2. Normal. Regular rate and rhythm. Lungs: Clear to auscultation bilaterally. No wheezing. No rales. No rhonchi. Abdomen: Positive bowel sounds. Soft, nontender, nondistended. Extremities: No edema. No cyanosis. No calf tenderness. Neurologic: The patient is alert and oriented x3. LABS: White blood cell count 3.8, hemoglobin 8.9, hematocrit 26, platelets 186,000. Sodium 137, potassium 2.9, chloride 102, CO2 23, BUN 16, creatinine 0.6, glucose 95, calcium 7.5, albumin 2. ASSESSMENT AND PLAN: 1. Enterococcus faecalis bacteremia. The patient is now on IV ampicillin. Further management as per Dr. Multani. 2. Enterococcus faecalis urinary tract infection. Continue on IV ampicillin. 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 Will await the neurologist's recommendations regarding a possible KAY. A 2-dimensional echocardiogram is currently pending, as well as carotid duplex study. Physical therapy has been consulted. 4. Severe protein calorie malnutrition. The patient is on a full liquid diet plus Ensure. 5. Short bowel syndrome. Aware. 6. Hypokalemia. Will replace the patient's potassium. 7. Anemia of chronic disease. The patient's hemoglobin and hematocrit is stable. 8. Vitamin D deficiency. Will start the patient on vitamin D replacement. 9. Deep vein thrombosis prophylaxis. Continue on Lovenox.
--- NOTE | 2016-05-21 16:19 | ECHO REPORT ---
ORDER DATE: 05/21/2016 INDICATION: Stroke. FINDINGS: 1. Right atrium is normal in size. 2. There is mild tricuspid regurgitation. RV systolic pressure is 22. 3. Normal RV size and systolic function. 4. Trace pulmonic insufficiency. 5. Mild left atrial enlargement at 4.4 cm. 6. No mitral prolapse. Mild mitral regurgitation. 7. Normal LV size, end-diastolic dimension of 5.1. Normal wall thicknesses with a posterior and interventricular septal wall thickness of 0.8 cm each. Normal LV systolic function. Estimated EF of 55%. There does appear to be some high mild hypokinesis of the basilar and inferior septum. 8. Aortic valve opens well and appears trileaflet. No evidence of stenosis or insufficiency. 9. Aorta appears normal in visualized segments. 10. No pericardial effusion seen. 11. During the majority of study the patient appears to be in sinus rhythm however in clip 41 it appeared to go into a regular narrow complex tachycardia suggestive of a possible SVT. Whether this is sinus tach, atrial tach or an atrial flutter is unclear. The patient seems to quickly revert back into sinus rhythm as the next set of images appear to have reverted back to the previous rhythm. 12. There does appear to be a large cystic structure present in the liver with dimensions of 9.3 by 11.4 cm. I would recommend evaluation of this with a targeted imaging modality.
--- NOTE | 2016-05-21 16:33 | CONSULTATION ---
DATE OF CONSULTATION: 05/21/2016 HISTORY OF PRESENT ILLNESS: Ms. Paula is 61 years old, and she had transient disorientation by report. History from the patient is that she felt like she was "in a fog" mentally for part of the day yesterday. Telecom Engineer at the bedside saw her early yesterday morning and thought she was well. He got a phone call from other family that she was having trouble, came right back to the hospital and she was much improved by the time he got here. He has seen her have a somewhat similar episode, which was more protracted several years ago when she was trying to stop alprazolam. Ms. Paula told me that she tried to quit alprazolam again about 3 months ago and was "too nervous" to continue without it. She believes she has not missed alprazolam prior to admission. She also takes hydrocodone regularly and believes she has not missed that. We did not have urine drug screen on admission this time. She was admitted on 05/18/2016 with report of feeling weak all over. She has been found to have fever, anemia, bacteremia with enterococcus, UTI, possibly infected PICC line. Brain MRI scan without contrast, is reported to show signal consistent with acute ischemia in the parietal lobes bilaterally. Echocardiogram is planned. She was started on aspirin after the scan findings reported yesterday. She reports no previous history of stroke. She has not noticed focal weakness, vision disturbance, or other specific neurologic deficit since the episode of confusion yesterday. NEUROLOGIC EXAM: On exam, she is awake, alert, attentive, oriented, and appropriate. She was able to discuss recent news. Speech is not dysarthric. She answered some questions after hesitation, but she answered correctly. Language function is intact. Remote memory is good. Head and neck are unremarkable. Visual arevalo are full, tested carefully by confrontational finger counting monocularly and binocularly. Extraocular movements are full. Facial motility is symmetric. Gag is intact. Tongue is midline. She can hear. Shoulder shrug is equal. Strength is normal in the arms and legs. Tone is symmetric in the limbs. She is generally thin, but there is no focal muscle atrophy or fasciculation. She did well on [id number] testing bilaterally. I did not test her gait. She had some variable and inconsistent responses on pinprick and light touch testing over the limbs, but there was no reproducible sensory deficit. Proprioception is good at the great toe MTP joint and at the index finger MP joint bilaterally. Reflexes are 1+ at the knees and trace at the ankles bilaterally. Plantar response is silent bilaterally. There is no meningismus. IMPRESSION: Transient confusion reported yesterday. I do not find any more elaborate or specific or detailed report in the computer record. I do not have a first hand witness available to interview now. I do not know what happened to her yesterday morning. History does not sound like there was ever altered consciousness or altered awareness. She does not recall having headache. The episode resolved relatively quickly. This may have coincided with fever, but I am not certain about that. She has a history of not tolerating missing her benzodiazepine medicine. On my review of the hospital record, I do not find documentation of benzodiazepine dose here until this morning, but my review of the record may not be adequate to make that determination. The MRI findings are worrisome. I believe echocardiogram is scheduled to look for cardiac source of embolus. In light of her bacteremia, that is particularly concerning. She has had some fairly moderate blood pressure elevations, but nothing that generally would be associated with a posterior reversible encephalopathy syndrome. We might consider follow up imaging later. We might consider lumbar puncture if there is question of cerebral spinal fluid infection, but that certainly does not appear to be present on clinical grounds now. Thanks for asking me to see Ms. Paula. [facility]TDD
[2016-05-21] MEDS: LIPITOR PO SCH (20:45)
[2016-05-22] MEDS: AMPICILLIN 2 GM/NS 100 ML IV SCH ×4 (03:46→21:39)
[2016-05-22 07:48] LABS: AGAP 11; BUN 10 mg/dL (8-22); CALCIUM 7.9 mg/dL (8.8-10.2); CHLORIDE 104 mmol/L (98-107); COSMO 274; MAGNESIUM 1.4 mg/dL (1.5-2.7); POTASSIUM 3.2 mmol/L (3.5-5.1); SODIUM 138 mmol/L (136-145); TCO2 23 mmol/L (25-35)
[2016-05-22 07:54] LABS: HEMATOCRIT 27.2 % (37.0-47.0); HEMOGLOBIN 9.1 g/dL (12.0-16.0); MCH 29.1 PG (27-31); MCHC 33.5 g/dL (33-37); MCV 86.9 FL (81-99); MPV 11.6 FL (7.4-10.4); RBC 3.13 XMIL (4.2-5.4)
--- NOTE | 2016-05-22 10:02 | PROGRESS NOTE ---
DATE: 05/22/2016 PRESENT ILLNESS: The patient has an enterococcal bacteremia. It could have originated from her PICC or from a urinary tract infection. The patient has been on ampicillin and, after only being on it a day, repeat blood cultures were drawn. They are growing gram-positive cocci which most likely in this situation would be identified as an Enterococcus. I think that given the patient was only on ampicillin for 1 day before the repeat blood cultures were drawn, I think we can still go ahead and continue with ampicillin. I will order blood cultures for tomorrow morning. MEDICATIONS: We are going to continue with ampicillin now at its current dose. PHYSICAL EXAMINATION: Vital Signs: Temperature is 98.9 degrees, pulse 90, respirations 19, blood pressure 120/75. General: This is a chronically ill-appearing, middle-aged female. She is in no acute distress. Cardiovascular: Her heart rate is regular. I did not hear a murmur. Abdomen: Soft and nontender. Lungs: Clear to auscultation. Neurologic: Patient is alert. She can move all of her extremities. There is no tremor. LAB AND X-RAY: An echocardiogram showed no vegetations. CBC shows a white count of 3540, hemoglobin 9.1, and platelet count 225,000. Creatinine is 0.6. GFR is greater than 60. There was a blood culture drawn on May 21, which is growing a gram-positive coccus. This is day 2 of treatment with ampicillin. ASSESSMENT AND PLAN: The patient has an enterococcal bacteremia and urinary tract infection and infected PICC. For right now, as mentioned above I am going to continue with ampicillin intravenously at a high dose. I have ordered that we will repeat her blood cultures tomorrow. COMORBIDITIES: The patient's comorbidities include COPD, congestive heart failure, small bowel syndrome secondary to radiation. Patient also has a history of pneumonia and Clostridium difficile diarrhea.
[2016-05-22] MEDS: LOVENOX SUBQ SCH (10:14)
[2016-05-22] MEDS: ASPIRIN EC PO SCH (10:14)
[2016-05-22] MEDS: NS 1,000 ML IV SCH (10:14)
[2016-05-22] MEDS ORDERED: KLOR-CON PO ONE (11:56)
[2016-05-22] MEDS ORDERED: MAGNESIUM SULFATE 2 GM/S.W.I. 50 ML IV ONE (11:56)
--- NOTE | 2016-05-22 12:32 | PROGRESS NOTE ---
DATE: 05/22/2016 SUBJECTIVE: Ms. Paula remains awake, alert, attentive and appropriate now. She has not had any more periods of confusion, altered awareness, mental status change. I have reviewed her echocardiogram report from yesterday. There is no mention of mural thrombus or source of embolus. In light of her stable course, I do not think we need to do anything urgently from a neurologic standpoint. We might consider followup brain imaging later to see if there are any changes to the recently noted bilateral hemispheric lesions. Thanks for allowing me to follow Ms. Paula.
--- NOTE | 2016-05-22 13:23 | PROGRESS NOTE ---
DATE: 05/22/2016 SUBJECTIVE: Feels okay. No abdominal pain. Having bowel function. No nausea or vomiting. She is tolerating a full liquid diet with Ensure. OBJECTIVE: Vital signs: Temperature curve is improving; now afebrile for the most part. Temp is 98.9 degrees, pulse is 90, blood pressure 120/75. Abdomen: Soft, nontender, nondistended. Integument: Warm and dry. Neurologic: She is more alert and oriented. LABS: I reviewed her labs. White count is stable at 3. Blood cultures have been positive for gram-positive cocci in urine and enterococcus in her urine. ASSESSMENT AND PLAN: This is a 61-year-old female with likely some degree of chronic partial small bowel obstruction related to radiation and multiple abdominal operations. She is tolerating a full liquid diet and Ensure supplementation. This is what she needs to be on going forward. Otherwise, she had been treated for bacteremia related to a PICC line infection. It is possible that with modification in her diet she will be able to take adequate enteral nutrition avoid TPN which would be ideal for her.
[2016-05-22] MEDS: PROTONIX IV SCH (13:27)
[2016-05-22] MEDS: SODIUM CHLORIDE 0.9% INJ SCH (13:27)
[2016-05-22] MEDS: NEUTRA-PHOS PO SCH ×3 (13:27→21:47)
[2016-05-22] MEDS: NORCO-10 PO PRN ×2 (14:31→21:55)
[2016-05-22] MEDS: XANAX PO PRN ×2 (14:31→21:55)
--- NOTE | 2016-05-22 18:24 | PROGRESS NOTE ---
DATE: 05/22/2016 SUBJECTIVE: The patient is resting comfortably in bed. She has no complaints at this time. She is afebrile. OBJECTIVE: Vital Signs: Temperature 98.2 degrees, blood pressure 137/90, heart rate 87, respirations 18, O2 saturation 93% on room air. General: This is a chronically ill-appearing, elderly female, lying in bed, in no acute distress. Head: Normocephalic, atraumatic. Heart: S1, S2. Normal. Regular rate and rhythm. Lungs: Clear to auscultation bilaterally. No wheezes, no rales. No rhonchi. Abdomen: Positive bowel sounds. Soft, nontender, nondistended. Extremities: No edema. No cyanosis. No calf tenderness. Neurologic: The patient is alert and oriented x3. LABORATORY: White blood cell count 3.5, hemoglobin 9.1, hematocrit 27, platelets 225,000. Sodium 138, potassium 3.2, chloride 104, CO2 23, BUN 10, creatinine 0.6, glucose 82. Phosphorus 1.8, magnesium 1.4. ASSESSMENT AND PLAN: 1. Enterococcus faecalis bacteremia. Continue on intravenous ampicillin. 2. Urinary tract infection secondary to Enterococcus faecalis. Continue on the current intravenous antibiotic regimen. 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 4. Severe protein calorie malnutrition. Continue with the full liquid diet, plus Ensure. 5. Electrolyte imbalance. We will replace the patient's potassium, magnesium and phosphorus today. 6. Short bowel syndrome. Aware. 7. Vitamin D deficiency. Continue with vitamin D replacement. 8. Deep vein thrombosis prophylaxis. Continue on Lovenox. 9. Continue with physical therapy.
[2016-05-22] MEDS: LIPITOR PO SCH (21:38)
[2016-05-23] MEDS: NS 1,000 ML IV SCH ×4 (02:17→15:18)
[2016-05-23] MEDS: AMPICILLIN 2 GM/NS 100 ML IV SCH ×4 (03:58→21:52)
[2016-05-23 06:32] LABS: MANUAL DIFF NEEDED? NO
[2016-05-23 06:47] LABS: BASO% 0.5 % (0.0-0.8); EOS# 0.05 X1000 (0.0-0.7); EOS% 1.2 % (0.0-10.0); HEMATOCRIT 26.6 % (37.0-47.0); HEMOGLOBIN 8.8 g/dL (12.0-16.0); IMM GRAN# 0.03 X1000 (0.0-0.04); IMM GRAN% 0.7 % (0.0-0.5); LYMPH# 0.56 X1000 (1.2-3.4); LYMPH% 13.3 % (20.5-51.1); MCHC 33.1 g/dL (33-37); MCV 87.8 FL (81-99); MONO# 0.39 X1000 (0.11-0.59); MONO% 9.3 % (1.7-9.3); MPV 11.5 FL (7.4-10.4); PLT 258 X1000 (130-400); RBC 3.03 XMIL (4.2-5.4)
[2016-05-23 06:58] LABS: AGAP 11; BUN 8 mg/dL (8-22); CALCIUM 7.9 mg/dL (8.8-10.2); CHLORIDE 107 mmol/L (98-107); COSMO 277; MAGNESIUM 1.6 mg/dL (1.5-2.7); POTASSIUM 4.1 mmol/L (3.5-5.1); SODIUM 140 mmol/L (136-145); TCO2 22 mmol/L (25-35)
[2016-05-23] MEDS: XANAX PO PRN ×2 (08:06→21:53)
[2016-05-23] MEDS: ASPIRIN EC PO SCH (10:01)
[2016-05-23] MEDS: LOVENOX SUBQ SCH (10:02)
[2016-05-23] MEDS: NEUTRA-PHOS PO SCH ×4 (10:02→20:27)
--- NOTE | 2016-05-23 11:50 | PROGRESS NOTE ---
DATE: 05/23/2016 HISTORY OF PRESENT ILLNESS: The patient has an enterococcal bacteremia, which could have originated either from her PICC or from the urinary tract. MEDICATIONS: The patient is on ampicillin. PHYSICAL EXAMINATION: Vital Signs: Temperature is 98.5 degrees, pulse 88, respirations 20, blood pressure 167/95. General: This is a chronically ill-appearing middle-aged female. She has in no acute distress. Lungs: Clear to auscultation. Cardiovascular: Regular heart rate. Abdomen: Soft and nontender. The patient's PICC site is not swollen or erythematous. LABORATORIES AND X-RAY STUDIES: A CBC today shows a white count of 4200, hemoglobin 8.8, and platelet count 258,000. Creatinine 0.5, GFR is greater than 60. ASSESSMENT AND PLAN: The patient has a bacteremia and urinary tract infection. I plan to treat her with ampicillin for a total of 14 days. COMORBIDITIES: The patient's comorbidities include COPD, congestive heart failure, small bowel syndrome secondary to radiation, pneumonia, and Clostridium difficile diarrhea.
[2016-05-23] MEDS: SODIUM CHLORIDE 0.9% INJ SCH (13:11)
[2016-05-23] MEDS: PROTONIX IV SCH ×2 (13:11→13:57)
--- NOTE | 2016-05-23 15:38 | PROGRESS NOTE ---
DATE: 05/23/2016 SUBJECTIVE: The patient is sitting up in bed. She has no complaints. She states that she slept well, and she has been working with Physical Therapy. OBJECTIVE: Vital Signs: Temperature 98 degrees, blood pressure 153/86, heart rate 91, respirations 20, O2 saturations 100% on room air. General: This is an elderly female, sitting at the edge of the bed, in no acute distress. Head: Normocephalic, atraumatic. Heart: S1, S2. Normal. Regular rate and rhythm. Lungs: Clear to auscultation bilaterally. No wheezes, no rales. No rhonchi. Abdomen: Positive bowel sounds. Soft, nontender, nondistended. Extremities: No edema. No cyanosis. Neurologic: The patient is alert oriented x3. LABS: White blood cell count 4.2, hemoglobin 8.8, hematocrit 26, platelets 258. Sodium 140, potassium 4.1 chloride 107, CO2 22, BUN 8, creatinine 0.5, glucose 85. Phosphorus 2.5. Magnesium 1.6. ASSESSMENT AND PLAN: 1. Enterococcus faecalis bacteremia. Continue on IV ampicillin as directed by Dr. Multani. Repeat blood cultures are currently pending. 2. Urinary tract infection secondary to Enterococcus faecalis. Continue on the current IV antibiotic regimen. 3. Embolic cerebrovascular accident. Continue on aspirin and physical therapy. 4. Severe protein calorie malnutrition. Continue on a full liquid diet plus Ensure. 5. Hypomagnesemia. Will replace the patient's magnesium. 6. Hypophosphatemia. The patient is on Neutra-Phos. 7. Short bowel syndrome. Aware. 8. Vitamin D deficiency. Continue on vitamin D replacement. 9. Deep vein thrombosis prophylaxis. Continue on Lovenox. 10. Continue with physical therapy.
[2016-05-23] MEDS ORDERED: MAGNESIUM SULFATE 2 GM/S.W.I. 50 ML IV ONE (16:00)
[2016-05-23] MEDS: LIPITOR PO SCH (20:27)
[2016-05-23] MEDS: NORCO-10 PO PRN (21:53)
[2016-05-24] MEDS: AMPICILLIN 2 GM/NS 100 ML IV SCH ×4 (04:03→20:59)
[2016-05-24] MEDS: NS 1,000 ML IV SCH ×2 (06:14→17:00)
[2016-05-24 06:49] LABS: MANUAL DIFF NEEDED? NO
[2016-05-24 07:15] LABS: AGAP 13; BUN 6 mg/dL (8-22); CALCIUM 7.9 mg/dL (8.8-10.2); CHLORIDE 107 mmol/L (98-107); COSMO 282; MAGNESIUM 1.9 mg/dL (1.5-2.7); POTASSIUM 3.7 mmol/L (3.5-5.1); SODIUM 143 mmol/L (136-145); TCO2 23 mmol/L (25-35)
[2016-05-24 07:20] LABS: EOS# 0.04 X1000 (0.0-0.7); HEMATOCRIT 25.4 % (37.0-47.0); HEMOGLOBIN 8.5 g/dL (12.0-16.0); IMM GRAN# 0.05 X1000 (0.0-0.04); IMM GRAN% 1.2 % (0.0-0.5); LYMPH# 0.53 X1000 (1.2-3.4); LYMPH% 13.2 % (20.5-51.1); MCH 29.2 PG (27-31); MCHC 33.5 g/dL (33-37); MCV 87.3 FL (81-99); MONO# 0.36 X1000 (0.11-0.59); MPV 11.1 FL (7.4-10.4); NEUT% 75.6 % (42.2-75.2); PLT 283 X1000 (130-400); RBC 2.91 XMIL (4.2-5.4)
--- NOTE | 2016-05-24 08:38 | PROGRESS NOTE ---
DATE: 05/24/2016 SUBJECTIVE: The patient doing well. Bowel movement recorded. She reports that she is tolerating her full liquid diet. No major issues reported by the patient. OBJECTIVE: Vital Signs: Patient is currently afebrile. Her vital signs have been stable. General exam: No acute distress. Alert, interactive female, who looks stated age. HEENT: Normocephalic, atraumatic. Pupils equal, round, reactive to light. Mucous membranes moist. Oropharynx benign. Neck: Supple. Trachea midline. Cardiovascular: Regular rate and rhythm. Lungs: Grossly clear. Abdomen: Soft, nondistended, nontender at this time. Extremities: Moves all extremities. Neurologic: Grossly intact. Skin: No signs of jaundice. Vascular: All extremities perfused. LABORATORY: White blood cell count is 4, which is essentially where it has been the last several days. Hematocrit 25.4, platelet count 283. The remainder of labs reviewed. ASSESSMENT AND PLAN: A 61-year-old female with multiple medical comorbidities with likely chronic bowel obstruction. 1. Bacteremia from PICC line. Currently being treated by the primary team. 2. Chronic bowel obstruction. At this time patient does have some clinical improvement. She is tolerating full liquid diet. Will advance her to a soft mechanical. If this does not seem to be tolerated, may back down to keep her just on a full liquid diet. She wants to advance her diet to something more. This was discussed with the patient that if she does not tolerate will have to bring her back to full liquid diet. She voiced understanding and wants to proceed with this plan. MTDD
[2016-05-24] MEDS: NEUTRA-PHOS PO SCH ×4 (09:03→20:53)
[2016-05-24] MEDS: LOVENOX SUBQ SCH (09:05)
[2016-05-24] MEDS: ASPIRIN EC PO SCH (09:05)
--- NOTE | 2016-05-24 16:57 | PROGRESS NOTE ---
DATE: 05/24/2016 SUBJECTIVE: The patient is sitting in bed. She has no complaints. She is afebrile today. OBJECTIVE: Vital Signs: Temperature 98.6 degrees, blood pressure 149/85, heart rate 67, respirations 20, O2 saturations 94% on room air. General: This is an elderly female, sitting up in bed, in no acute distress. Head: Normocephalic atraumatic. Heart: S1, S2. Normal. Regular rate and rhythm. Lungs: Clear to auscultation bilaterally. No wheezes, no rales. No rhonchi. Abdomen: Positive bowel sounds. Soft, nontender, nondistended. Extremities: No edema. No cyanosis. No calf tenderness. Neurologic: The patient is alert and oriented x3. LABS: White blood cell count 4, hemoglobin 8.5, hematocrit 25, platelets 283,000. Sodium 143, potassium 3.7, chloride 107, CO2 23, BUN 6, creatinine 0.5, glucose 87, magnesium 1.9, phosphorus 3.8. ASSESSMENT AND PLAN: 1. Enterococcus faecalis bacteremia. Continue on IV ampicillin. So far the repeat blood cultures are again positive for Enterococcus faecalis. Further management as per Dr. Multani. 2. Urinary tract infection secondary to Enterococcus faecalis. Continue on IV antibiotic therapy. 3. Embolic CVA. Continue on aspirin and physical therapy. 4. Severe protein calorie malnutrition. The patient's diet was advanced today. Continue on Ensure. 5. Short bowel syndrome. Aware. 6. Vitamin D deficiency. Continue with vitamin D replacement. 7. Deep vein thrombosis prophylaxis. Continue on Lovenox. 8. Continue with physical therapy.
[2016-05-24] MEDS: PROTONIX IV SCH (17:07)
[2016-05-24] MEDS: SODIUM CHLORIDE 0.9% INJ SCH (17:07)
[2016-05-24] MEDS: XANAX PO PRN (20:53)
[2016-05-24] MEDS: LIPITOR PO SCH (20:53)
[2016-05-24] MEDS: NORCO-10 PO PRN (20:53)
[2016-05-25 02:36] LABS: AGAP 11; ALBUMIN 2.4 g/dL (3.5-5.0); BUN 8 mg/dL (8-22); CHLORIDE 106 mmol/L (98-107); COSMO 283; MAGNESIUM 1.6 mg/dL (1.5-2.7); POTASSIUM 4.3 mmol/L (3.5-5.1); SODIUM 143 mmol/L (136-145); TCO2 26 mmol/L (25-35)
[2016-05-25] MEDS: NS 1,000 ML IV SCH ×2 (03:04→16:16)
[2016-05-25] MEDS: AMPICILLIN 2 GM/NS 100 ML IV SCH ×4 (03:04→22:02)
[2016-05-25] MEDS: ASPIRIN EC PO SCH (08:34)
[2016-05-25] MEDS: NEUTRA-PHOS PO SCH (08:35)
[2016-05-25] MEDS: LOVENOX SUBQ SCH (08:35)
[2016-05-25] MEDS: XANAX PO PRN ×2 (10:34→20:47)
[2016-05-25] MEDS: NORCO-10 PO PRN ×2 (10:34→20:47)
[2016-05-25] MEDS ORDERED: MAGNESIUM SULFATE 2 GM/S.W.I. 50 ML IV ONE (11:06)
[2016-05-25] MEDS: PROTONIX IV SCH (13:35)
[2016-05-25] MEDS: SODIUM CHLORIDE 0.9% INJ SCH (13:35)
--- NOTE | 2016-05-25 14:16 | PROGRESS NOTE ---
DATE: 05/25/2016 SUBJECTIVE: The patient is resting comfortably in bed. She does complain of some abdominal pain this morning, but no nausea or vomiting. OBJECTIVE: Vital Signs: Temperature 97.5 degrees, blood pressure 152/89, heart rate 87, respirations 20. O2 saturations 97% on room air. General: This is an elderly female, lying comfortably in bed, in no acute distress. Head: Normocephalic, atraumatic. Heart: S1, S2. Normal. Regular rate and rhythm. Lungs: Clear to auscultation bilaterally. No wheezes, no rales. No rhonchi. Abdomen: Positive bowel sounds. Soft, nontender, nondistended. Extremities: No edema. No cyanosis. No calf tenderness. Neurologic: The patient is alert and oriented x3. No focal neurologic deficits noted. LABS: Sodium 143, potassium 4.3, chloride 106, CO2 26. BUN 8, creatinine 0.6, glucose 91. ASSESSMENT AND PLAN: 1. Enterococcus faecalis bacteremia. Continue on IV ampicillin. So far, all sets of blood cultures remain positive. Further recommendations to follow from Dr. Multani tomorrow. 2. Urinary tract infection secondary to Enterococcus faecalis. Continue on IV antibiotic therapy. 3. Embolic cerebrovascular accident. Continue on aspirin and physical therapy. 4. Severe protein calorie malnutrition. Continue on Ensure supplements. 5. Short bowel syndrome. Aware. 6. Vitamin D deficiency. Continue on vitamin D replacement. 7. Deep vein thrombosis prophylaxis. Continue on Lovenox.
--- NOTE | 2016-05-25 15:44 | Diag Imaging Result Document ---
PROCEDURE NAME: ABDOMEN FLAT/UPRIGHT - 05/25/2016 FLAT AND UPRIGHT ABDOMEN: There is gas throughout the colon. There are surgical clips and suture lines in the pelvis. There is no evidence of organomegaly or mass, and the appearance of the abdomen has not changed significantly since 05/20/2016. There continues to be gas in the rectum. IMPRESSION: The possibility of mild ileus cannot be excluded.
[2016-05-25] MEDS: LIPITOR PO SCH (20:47)
[2016-05-26] MEDS: AMPICILLIN 2 GM/NS 100 ML IV SCH ×4 (03:07→21:27)
[2016-05-26] MEDS ORDERED: LR 1,000 ML ONE (05:04)
[2016-05-26] MEDS: NS 1,000 ML IV SCH (06:08)
[2016-05-26 06:54] LABS: MANUAL DIFF NEEDED? NO
[2016-05-26 07:17] LABS: BASO% 0.2 % (0.0-0.8); EOS# 0.09 X1000 (0.0-0.7); EOS% 1.7 % (0.0-10.0); HEMATOCRIT 26.7 % (37.0-47.0); HEMOGLOBIN 8.5 g/dL (12.0-16.0); IMM GRAN# 0.06 X1000 (0.0-0.04); IMM GRAN% 1.1 % (0.0-0.5); LYMPH# 0.49 X1000 (1.2-3.4); LYMPH% 9.1 % (20.5-51.1); MCH 28.4 PG (27-31); MCHC 31.8 g/dL (33-37); MCV 89.3 FL (81-99); MONO# 0.45 X1000 (0.11-0.59); MONO% 8.4 % (1.7-9.3); MPV 11.1 FL (7.4-10.4); NEUT% 79.5 % (42.2-75.2); PLT 345 X1000 (130-400); RBC 2.99 XMIL (4.2-5.4)
[2016-05-26 07:24] LABS: AGAP 13; BUN 8 mg/dL (8-22); CALCIUM 8.6 mg/dL (8.8-10.2); CHLORIDE 104 mmol/L (98-107); COSMO 281; MAGNESIUM 1.7 mg/dL (1.5-2.7); POTASSIUM 3.7 mmol/L (3.5-5.1); SODIUM 142 mmol/L (136-145); TCO2 25 mmol/L (25-35)
[2016-05-26] MEDS: LOVENOX SUBQ SCH (10:23)
[2016-05-26] MEDS: ASPIRIN EC PO SCH (10:23)
[2016-05-26] MEDS: XANAX PO PRN ×2 (10:29→23:28)
[2016-05-26] MEDS: NORCO-10 PO PRN ×2 (10:29→23:28)
--- NOTE | 2016-05-26 14:25 | Carotid Study ---
DATE: 05/21/2016 PROCEDURE: Carotid duplex imaging. REFERRING PHYSICIAN: Dr. Mcgovern INTERPRETING PHYSICIAN: Dr. Durbin TECH: Kelvin INDICATIONS: The patient has had a stroke. OBSERVED DATA RIGHT LEFT Brachial Blood Pressure Carotid Pulse Bruits: Carotid/Sub DIAGRAM OF ULTRASOUND IMAGING R L RIGHT INT EXT INT EXT LEFT Greg (cm/s) Greg (cm/s) Subclavian 64/4 Subclavian 76/4 CCA Proximal 58/12 CCA Proximal 52/12 CCA Distal 47/16 CCA Distal 56/17 Bulb 38/15 Bulb 43/16 ICA Proximal 45/18 ICA Proximal 43/14 ICA Mid 55/22 ICA Mid 42/15 ICA Distal 41/14 ICA Distal 49/21 ECA 41/8 ECA 46/9 Vertebral 53/16 A Vertebral 35/9 A ICA/CCA Ratio 0.95 ICA/CCA Ratio 0.90 % Stenosis 0 to 39 % Stenosis 0 to 39 FINDINGS: No significant plaque disease is identified. PHYSICIAN INTERPRETATION: No significant plaque disease identified. There is antegrade vertebral flow bilaterally.
[2016-05-26] MEDS: PROTONIX IV SCH (15:29)
[2016-05-26] MEDS: SODIUM CHLORIDE 0.9% INJ SCH (15:29)
[2016-05-26] MEDS ORDERED: GENTAMICIN IV PER PHARMACY MISC SCH (15:30)
--- NOTE | 2016-05-26 16:49 | CONSULTATION ---
DATE OF CONSULTATION: 05/26/2016 CHIEF COMPLAINT: Weakness, not feeling well. REASON FOR CONSULTATION: The patient has multiple positive blood cultures for enterococcus, endocarditis is suspected. Pursue transesophageal echocardiogram. HISTORY OF PRESENT ILLNESS: The patient is a 61-year-old female. She was admitted on 05/18/2016 complaining of weakness and fatigue. The patient developed fever, and they grew Enterococcus faecalis in at least 6 sets of blood cultures. She also had positive urine culture for Enterococcus faecalis. The bacteria appears to be sensitive to ampicillin, vancomycin and penicillin. They did an MRI of the brain on 05/20/2016 which showed foci of acute or subacute ischemia in the posterior parietal lobe bilaterally. Embolic source was suggested. A transesophageal echocardiogram has been recommended. PAST MEDICAL HISTORY: The patient has history of hypertension, history of COPD. She has coronary artery disease, previous stents, previous myocardial infarction. She has history of bowel obstruction. She has had colon surgery in the past secondary to bowel obstruction, secondary in turn to radiation therapy for cervical cancer. She had parathyroidectomy, she had appendectomy. SOCIAL HISTORY: She is . She is disabled. She is a smoker of 1/2 pack a day. FAMILY HISTORY: Sister had coronary artery disease. ALLERGIES: She is not allergic to any medications. HOME MEDICATIONS: She is on hydrocodone/APAP 1 tablet 3 times a day, docusate 100 daily, alprazolam 1 mg 3 times a day, Symbicort daily, albuterol 3 times a day, potassium 20 mEq daily, mirtazapine 50 mg daily, omeprazole 40 mg twice a day, metoprolol succinate 100 daily, magnesium oxide 400 twice daily, lisinopril 20 daily. REVIEW OF SYSTEMS: She has had mild dysphagia to solids; however, it has not been consistent. She really does not have any trouble swallowing. She has been noted to have a liver cyst on prior CT of abdomen,however, it seems to be getting larger. PHYSICAL EXAMINATION: Blood pressure is 148/86, temperature 97.7, pulse 76, respirations 18. The patient weighs 100 pounds. She is awake, alert and oriented, chronically ill, no distress. HEENT is unremarkable. Chest: Diminished breath sounds diffusely. Heart sounds are regular and rhythm. No gallop or murmur. Abdomen: Nontender. Soft. No hepatomegaly is noted. Extremities showed decreased pulses in the left leg. Right leg pulses are good. Neurologic : She moves all 4 extremities, follows commands. No definite or obvious deficits are noted. Neurologist already saw the patient, and in his original consultation, she did not appear to have any clear-cut lateralizing signs.Skin shows no stigmata of endocarditis. DIAGNOSTIC DATA: Blood work shows sodium 132, potassium 3.7, chloride 104, carbon dioxide 25, glucose 88, BUN is 8, creatinine 0.5, magnesium 1.7. Hemoglobin is 8.5, platelet count 345,000. IMPRESSION: 1. The patient is found with Enterococcus faecalis bacteremia, urinary tract infection, possible case of bacterial endocarditis. 2. Embolic stroke. 3. Coronary artery disease h/o stent with stable angina pectoris pattern. 4. The patient appears to be malnourished. 5. Anemia of chronic disease. 6. The patient has a history of a liver cyst that appears to be enlarging on the subsequent CT scans of the abdomen. RECOMMENDATIONS: We will proceed with a transesophageal echocardiogram to confirm or rule out the presence of endocardial vegetation. The benefits, risks and complications of transesophageal echocardiogram were explained to the patient in detail. She understood and requested to go ahead with it. Further advice will be forthcoming. MTDD
--- NOTE | 2016-05-26 16:51 | PROGRESS NOTE ---
DATE: 05/26/2016 PRESENT ILLNESS: The patient has a persistent enterococcal bacteremia despite being on high doses of ampicillin. It is also noted that she has a large fluid-filled liver cyst which is increasing in size. MEDICATIONS: The patient is receiving high dose intravenous ampicillin. PHYSICAL EXAMINATION: Vital Signs: Temperature is 97.7 degrees, pulse 76, respirations 18, blood pressure 148/86. Generally: This is a chronically ill-appearing, middle-aged female who is in no acute distress. Lungs: Clear to auscultation. Cardiovascular: Regular heart rate. Abdomen: Soft and nontender. LABORATORY AND X-RAY: The patient's CBC today showed a white count of 5360, hemoglobin 8.5, and platelet count 345,000. Creatinine is 0.5. GFR is greater than 60. The patient's last set of blood cultures, one out of two grew Enterococcus. ASSESSMENT AND PLAN: The patient has persistent enterococcal bacteremia. Two blood cultures will be drawn today. Tomorrow our plan is to have a radiology under computed tomography guidance aspirate the cyst and I have ordered that the fluid should be sent for culture and cytology. Also tomorrow [facility] a trans[facility]ogram be performed. I plan to continue the patient's ampicillin and add gentamicin. 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 The patient does have a history of pneumonia and Clostridium difficile diarrhea. MTDD
--- NOTE | 2016-05-26 17:00 | PROGRESS NOTE ---
DATE: 05/26/2016 SUBJECTIVE: Patient looks well. No focal complaints. OBJECTIVE: Vital signs: Blood pressure 148/86, heart rate is 76, respiratory rate 18, temperature 97.7 degrees. Cardiovascular: Regular rate and rhythm. Pulmonary: Bilateral breath sounds. Clear to auscultation. GI: Soft, nontender, nondistended. Bowel sounds are positive. LABORATORY DATA: Hemoglobin and hematocrit of 8 and 26 white count, chemistries are normal. Blood cultures remain positive. She had a positive blood culture on the , 3 actually and a urine culture. PICC line was positive for enterococcus. Then on the 05/21, blood cultures positive and on 05/23 blood cultures positive. So 3 sets blood cultures. So she has a persistent bacteremia. ASSESSMENT: 1. Enterococcal bacteremia. Initially thought to be line associated, but she is persistently bacteremic despite appropriate intravenous antibiotic therapy at high dose and she is still bacteremic. She has a large hepatic cyst, so we are looking into aspirating that to make sure there is not infection or abscess and then she will likely need a transesophageal echocardiogram to rule out endocarditis. Her transthoracic echocardiogram was negative, but now since she had 6 positive blood cultures, I think we do need entertain a transesophageal echocardiogram to evaluate for that as well as she has evidence of embolic stroke which at this point may be related to endocarditis and embolic mycotic aneurysm or septic embolization. I think she needs a transesophageal echocardiogram to rule out obviously atrial thrombi, but also any vegetations that may lead to an embolic cerebrovascular accident. 2. Chronic obstructive pulmonary disease appears to be stable. 3. Enterococcus urinary tract infection. She is on antibiotics. 4. Embolic cerebrovascular accident. She is on aspirin, physical therapy. I think we ordered an echo and a carotid which were negative. Again, it is unclear at this point if it is embolic from infection or embolization, thrombi, but will have to kind of see how things are going. 5. Disposition. Pending her current workup.
[2016-05-26] MEDS: MIRALAX PO SCH (17:36)
[2016-05-26] MEDS: NS IV SCH (18:40)
[2016-05-26] MEDS: GENTAMICIN IV SCH (18:40)
[2016-05-26] MEDS: LIPITOR PO SCH (21:27)
[2016-05-27] MEDS: NS 1,000 ML IV SCH ×2 (00:35→12:26)
[2016-05-27] MEDS: GENTAMICIN IV SCH ×3 (03:19→21:39)
[2016-05-27] MEDS: NS IV SCH ×3 (03:19→21:39)
[2016-05-27] MEDS: AMPICILLIN 2 GM/NS 100 ML IV SCH ×4 (04:50→21:40)
[2016-05-27 07:22] LABS: MANUAL DIFF NEEDED? NO
[2016-05-27 07:33] LABS: BASO% 0.2 % (0.0-0.8); EOS% 2.2 % (0.0-10.0); HEMATOCRIT 29.7 % (37.0-47.0); HEMOGLOBIN 9.2 g/dL (12.0-16.0); IMM GRAN# 0.04 X1000 (0.0-0.04); IMM GRAN% 0.9 % (0.0-0.5); LYMPH# 0.68 X1000 (1.2-3.4); MCV 90.5 FL (81-99); MONO# 0.41 X1000 (0.11-0.59); MPV 10.8 FL (7.4-10.4); NEUT% 72.7 % (42.2-75.2); PLT 364 X1000 (130-400); RBC 3.28 XMIL (4.2-5.4)
[2016-05-27 07:43] LABS: AGAP 10; BUN 7 mg/dL (8-22); CALCIUM 8.5 mg/dL (8.8-10.2); CHLORIDE 105 mmol/L (98-107); COSMO 280; POTASSIUM 3.6 mmol/L (3.5-5.1); SODIUM 142 mmol/L (136-145); TCO2 27 mmol/L (25-35)
[2016-05-27 08:27] LABS: PTT 27.5 Seconds (22.0-36.0)
[2016-05-27 08:28] LABS: PROTIME 10.6 Seconds (9.2-11.7)
[2016-05-27] MEDS ORDERED: XYLOCAINE 4% TOPICAL SOLUTION ONE (09:10)
[2016-05-27] MEDS ORDERED: XYLOCAINE 2% VISCOUS ONE (09:10)
[2016-05-27] MEDS ORDERED: SODIUM CHLORIDE 0.9% 10 ML ONE (09:10)
[2016-05-27] MEDS ORDERED: HURRICAINE SPRAY (DOSE) ONE (09:10)
[2016-05-27] MEDS ORDERED: CLAVE TWINSITE 32 IN 11959 ONE (09:22)
[2016-05-27] MEDS: MIRALAX PO SCH (09:49)
[2016-05-27] MEDS ORDERED: NS 1,000 ML ONE (10:14)
[2016-05-27] MEDS ORDERED: DIPRIVAN 1% ONE (10:26)
[2016-05-27] MEDS ORDERED: XYLOCAINE-MPF 2% ONE (10:36)
[2016-05-27] MEDS: NORCO-10 PO PRN ×2 (12:25→21:40)
--- NOTE | 2016-05-27 13:33 | Diag Imaging Result Document ---
PROCEDURE NAME: CHEST-2 VIEWS - 05/27/2016 [facility] 1140 HOURS: The exam was performed immediately following CT- directed aspiration of the liver cyst. COMPARISON: 12/16/2016. FINDINGS: There is mild basilar scarring and/or subsegmental atelectasis which appears stable. There is a left lower lung calcified granuloma from old granulomatous disease which is stable. The lungs otherwise appear clear of acute changes. There is no pleural effusion seen. There is no evidence of pneumothorax. Heart size is stable. IMPRESSION: No acute changes. No evidence of pneumothorax.
--- NOTE | 2016-05-27 13:43 | Diag Imaging Result Document ---
PROCEDURE NAME: CT GUIDE ABD DRAINAGE W/CATH - 05/27/2016 CT-DIRECTED IS ASPIRATION OF LIVER CYST: INDICATION: Chest the patient presented for CT-directed drainage of large cyst in the right upper liver. TECHNIQUE: The procedure was explained to the patient and her . Potential complications of hemorrhage and infection were explained. Potential complication of pneumothorax, possibly necessitating chest tube insertion, if the catheter were to traverse the lung base, was also explained. Any questions were answered. The patient's provided written consent for the procedure. The patient subsequently was placed on the CT table in the supine position. The large liver cyst was localized by CT. A procedure site was identified which appeared to be located below the base of the right lung. The patient was prepped and draped in the usual fashion , and the skin and subcutaneous tissues at the procedure site were infiltrated with local anesthetic. A thoracentesis/paracentesis catheter was inserted into the liver cyst with intermittent CT guidance via right anterolateral approach. Approximately 350 mL of clear yellow fluid was removed. This substantially decreased the size of the cyst. Additional attempt was made to drain residual fluid at the superior aspect of the cyst utilizing a 2nd thoracentesis/paracentesis catheter which was inserted at the same location as the first one (which was removed first) and was angled superiorly. However, no additional fluid could be removed, possibly due to some internal septations within the superior portion of the cyst. The patient tolerated the procedure well. No immediate complications were incurred. The catheters did not appear to traverse the right lung base, and chest radiographs were obtained following the procedure as a precaution. The obtained fluid was sent to the laboratory for evaluation. IMPRESSION: Successful CT-directed aspiration of large liver cyst. No immediate complications. [facility]
[2016-05-27] MEDS: PROTONIX IV SCH (13:51)
[2016-05-27] MEDS: SODIUM CHLORIDE 0.9% INJ SCH (13:51)
--- NOTE | 2016-05-27 16:13 | PROGRESS NOTE ---
DATE: 05/27/2016 PRESENT ILLNESS: The patient has an enterococcal bacteremia. She also has a large cyst in the liver. Today the fluid was aspirated and it appeared to be clear yellow in color. MEDICATIONS: The patient is on high-dose ampicillin and low dose gentamicin. PHYSICAL EXAMINATION: Vital Signs: Temperature is 97.8 degrees, pulse 83, respirations 20, blood pressure 140/83. General: This is an ill-appearing, middle-aged female. She is in no acute distress. Lungs: Clear to auscultation. Cardiovascular: Heart rate is regular. Abdomen: Slightly tender where she had the fluid aspirated today from her liver. Neurologic: She is alert and she can move all of her extremities. LAB AND X-RAY: CBC today showed a white count of 4,540, hemoglobin 9.2, and platelet count 364,000. Creatinine is 0.6. A Gram stain of the liver cysts fluid showed no organisms. The fluid has been sent for cytology and also for cell count, the results of which are pending. ASSESSMENT AND PLAN: The patient has an enterococcal bacteremia and a large liver cyst. My plan will be to continue ampicillin. The patient has blood cultures and the liver aspirate fluid cultures pending. For now I am going to wait to put in a central line until the patient's blood cultures turn negative. 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 Patient also has a history of pneumonia and Clostridium difficile diarrhea. MTDD
--- NOTE | 2016-05-27 16:39 | PROGRESS NOTE ---
DATE: 05/27/2016 SUBJECTIVE: The patient is feeling weak but otherwise no complaint. No acute event reported overnight. The patient went down for the KAY and a liver cyst drained per CT-guided. She tolerated the procedures well. OBJECTIVE: Vital Signs: Blood pressure 140/83, pulse of 83, respirations 20, temperature 97.8 degrees, saturation of 98% on room air. General Appearance: Thin, cachectic, white female in no acute distress. HEENT: Anicteric. Clear conjunctivae. Neck: Supple. No JVD. No bruit. Cardiovascular: S1, S2. Normal rate and rhythm. No murmur, rubs, or gallops. Pulmonary: Clear to auscultation bilaterally. GI: Soft, nontender, nondistended. Normoactive bowel sounds. Musculoskeletal: No clubbing, cyanosis, or edema. LABORATORY: White count 4.54, hemoglobin 9.2, hematocrit 29.7, platelets 364,000. Chemistry: Sodium 142, potassium 3.6, chloride 105, bicarb 27, BUN 7, creatinine 0.6, glucose of 75. ASSESSMENT AND PLAN: This is a 61-year-old admitted to the hospital for persistent enterococcal bacteremia. 1. Enteral enterococcal bacteremia. The patient has a liver cyst aspirate today. They removed 350 mL of clear fluid. There was no pus-like substance. Culture is still pending. The patient is on ampicillin. ID is following. KAY was also done according to the patient. The report is not yet available. Will continue on antibiotics for now. We will try to rule out endocarditis. 2. Embolic cerebrovascular accident. Again, echocardiogram is pending. The patient is on aspirin, Lipitor. 3. Deep vein thrombosis prophylaxis. The patient is on Lovenox. 4. Code status. The patient is a full code. 5. Note, Dr. Multani added gentamicin to her ampicillin.
--- NOTE | 2016-05-27 17:06 | ECHO REPORT ---
ORDER DATE: 05/27/2016 INDICATION: Enterococcus faecalis bacteremia. Possible embolic CVA. PROCEDURE IN DETAIL: Ms. Paula was brought to the catheterization laboratory in fasting state. Informed consent was obtained. She was prepped in usual fashion with viscous lidocaine and Hurricaine spray. After adequate oropharyngeal anesthesia was obtained, she was sedated with propofol. Transesophageal echocardiogram probe was passed without difficulty. Images were obtained in multiple views in multiple planes. At the conclusion of the procedure, the probe was removed. The patient tolerated the procedure well without any complications. FINDINGS: 1. The right atrium appears to be normal in size. There is no evidence of shunting across the interatrial septum with evaluation via color Doppler and agitated saline contrast injection. 2. There is mild tricuspid regurgitation. No evidence of adherent vegetation to the tricuspid valve. 3. The right ventricle appeared to be normal in size with normal RV systolic function. 4. Trace pulmonic insufficiency. Some limited views of the pulmonic valve, but no clear evidence of adherent vegetation. 5. The left atrium appeared to be mildly enlarged. There is no evidence of clot in the left atrium. The left atrial appendage was visualized well with no evidence of clot on 2- dimensional imaging. There was good color flow Doppler throughout the left atrial appendage. The pulse wave velocity did appear to be less than 40 cm/sec on evaluation of this. 6. No mitral valve prolapse. There is mild mitral regurgitation noted. This appeared to have a total of 3 small jets visualized. 7. The left ventricle appeared to be normal in size with no evidence of left ventricular hypertrophy. LV systolic function appeared to be preserved and estimated EF greater than equal to 55%. 8. The aortic valve was visualized very well. There was no evidence of adherent vegetation. The valve opens well. It is trileaflet. There is trace aortic insufficiency with no stenosis. 9. There was mild atherosclerosis noted throughout the descending thoracic aorta. 10. No pericardial effusion was identified.
[2016-05-27] MEDS: LIPITOR PO SCH (21:40)
[2016-05-27] MEDS: XANAX PO PRN (21:40)
[2016-05-28] MEDS: AMPICILLIN 2 GM/NS 100 ML IV SCH ×4 (03:13→21:58)
[2016-05-28] MEDS: NS 1,000 ML IV SCH ×3 (03:15→17:23)
[2016-05-28 04:57] LABS: MANUAL DIFF NEEDED? NO
[2016-05-28 04:59] LABS: BASO% 0.3 % (0.0-0.8); EOS# 0.08 X1000 (0.0-0.7); EOS% 2.1 % (0.0-10.0); HEMATOCRIT 27.5 % (37.0-47.0); HEMOGLOBIN 8.7 g/dL (12.0-16.0); IMM GRAN# 0.02 X1000 (0.0-0.04); IMM GRAN% 0.5 % (0.0-0.5); LYMPH# 0.68 X1000 (1.2-3.4); MCH 28.5 PG (27-31); MCHC 31.6 g/dL (33-37); MCV 90.2 FL (81-99); MONO# 0.39 X1000 (0.11-0.59); MONO% 10.3 % (1.7-9.3); MPV 10.4 FL (7.4-10.4); NEUT% 68.8 % (42.2-75.2); PLT 364 X1000 (130-400); RBC 3.05 XMIL (4.2-5.4)
[2016-05-28] MEDS: NS IV SCH ×3 (06:11→21:58)
[2016-05-28] MEDS: GENTAMICIN IV SCH ×3 (06:11→21:58)
[2016-05-28] MEDS: NORCO-10 PO PRN ×2 (08:46→17:08)
[2016-05-28] MEDS: MIRALAX PO SCH (08:49)
[2016-05-28] MEDS: LOVENOX SUBQ SCH (08:49)
--- NOTE | 2016-05-28 12:15 | PROGRESS NOTE ---
DATE: 05/28/2016 SUBJECTIVE: The patient is feeling well. She has no complaint. Denied having any fever or chills. No nausea, vomiting, or diarrhea. OBJECTIVE: Vital Signs: Blood pressure 158/110, pulse of 94, respirations 16, temperature 98.6 degrees, and saturation of 99% on room air. General Appearance: Thin, cachectic, white female in no acute distress. HEENT: Anicteric. Clear conjunctivae. Neck: Supple. No JVD. No bruit. Cardiovascular: S1 and S2. Normal rate and rhythm. No murmur, rubs, or gallops. Pulmonary: Clear to auscultation bilaterally. Gastrointestinal: Soft, nontender, nondistended. Normoactive bowel sounds. Musculoskeletal: No clubbing, cyanosis, or edema. LABORATORY: White count of 3.38, hemoglobin 8.7, hematocrit of 27.5, platelets of 364,000. Chemistry: Sodium 142, potassium 3.6, chloride 105, bicarbonate 27, BUN 7, creatinine 0.6, and glucose of 75. KAY is a negative for any vegetation. The last positive blood culture was on 05/23/2016. Blood cultural from 05/26/2016 is still pending. ASSESSMENT AND PLAN: This is a 61-year-old white female admitted to the hospital for bacteremia. 1. Bacteremia with Enterococcus. Dr. Multani is following. Discussed with Dr. Multani this morning. Once her last negative blood culture has resulted, will put a PICC line and then we will make arrangements for her to go home and to get 2 weeks of IV antibiotics unless the culture from the liver aspiration is positive. Then she would need at least 6 weeks then. For now, will tentatively treat the patient for 2 weeks of IV antibiotics. 2. Hypertension. Blood pressure is not very well controlled. We will increase her lisinopril to 40 mg and consider to add Norvasc. 3. Deep vein thrombosis prophylaxis. Put the patient on Lovenox. 4. Code status: The patient is a full code.
[2016-05-28] MEDS: XANAX PO PRN ×2 (12:26→20:36)
[2016-05-28] MEDS: TOPROL XL PO SCH (12:26)
[2016-05-28] MEDS: PRINIVIL PO SCH (12:26)
[2016-05-28 12:39] LABS: DIFF NEEDED? YES; WBC BF 259 /cumm
[2016-05-28 12:41] LABS: MONOS 4 %; POLYS 96 %
[2016-05-28] MEDS: PROTONIX IV SCH (17:10)
[2016-05-28] MEDS: SODIUM CHLORIDE 0.9% INJ SCH (17:10)
[2016-05-28] MEDS: VITAMIN D PO SCH (17:16)
--- NOTE | 2016-05-28 18:03 | PROGRESS NOTE ---
DATE: 05/28/2016 PRESENT ILLNESS: The patient has an enterococcal bacteremia which has been extremely difficult to eradicate. She also has a large liver cyst which was aspirated yesterday. MEDICATIONS: The patient is on high-dose ampicillin and low-dose gentamicin. PHYSICAL EXAMINATION: Vital Signs: Temperature is 98.6 degrees, pulse 81, respirations 16, blood pressure 149/94. General: This is a thin malnourished-appearing middle-aged female who is in no acute distress. Lungs: Clear to auscultation. Cardiovascular: Regular heart rate. Abdomen: Soft and nontender. Vital signs: Temperature is 98.6 degrees, pulse 81, respirations 16, blood pressure 149/94. LABORATORY AND X-RAY: Patient's CBC shows a white count of 3780, hemoglobin 8.7, and platelet count 364,000. Her KAY showed no vegetations. The liver cyst fluid aspirate had 259 white cells in it of which 96% were polys. The blood and the live cyst fluid are both negative on culture thus far. The patient's creatinine was not in there today. Yesterday it was 0.6 with a GFR of 60. ASSESSMENT AND PLAN: 1. Patient has enterococcal bacteremia. The plan is to treat her for 4 more weeks with ampicillin 2 g IV every 6 hours. Also gentamicin will be given for another 10 days. Its dose is 50 mg IV every 8 hours. Patient also is on hyperalimentation fluid. I have requested that the patient see me in the office 3 weeks after discharge. 2. 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 The patient also has a history of pneumonia and Clostridium difficile diarrhea.
[2016-05-28] MEDS: LIPITOR PO SCH (20:36)
[2016-05-29] MEDS: NORCO-10 PO PRN ×2 (03:23→13:53)
[2016-05-29] MEDS: AMPICILLIN 2 GM/NS 100 ML IV SCH ×2 (04:01→09:01)
[2016-05-29] MEDS: NS IV SCH ×2 (05:11→13:53)
[2016-05-29] MEDS: GENTAMICIN IV SCH ×2 (05:11→13:53)
[2016-05-29 07:00] LABS: MANUAL DIFF NEEDED? NO
[2016-05-29 07:11] LABS: BASO% 0.3 % (0.0-0.8); EOS# 0.07 X1000 (0.0-0.7); EOS% 1.8 % (0.0-10.0); HEMATOCRIT 28.7 % (37.0-47.0); HEMOGLOBIN 8.8 g/dL (12.0-16.0); IMM GRAN# 0.03 X1000 (0.0-0.04); IMM GRAN% 0.8 % (0.0-0.5); LYMPH# 0.55 X1000 (1.2-3.4); LYMPH% 14.1 % (20.5-51.1); MCHC 30.7 g/dL (33-37); MCV 91.4 FL (81-99); MONO# 0.39 X1000 (0.11-0.59); MPV 10.6 FL (7.4-10.4); PLT 352 X1000 (130-400); RBC 3.14 XMIL (4.2-5.4)
[2016-05-29 07:22] LABS: AGAP 11; BUN 8 mg/dL (8-22); CALCIUM 8.4 mg/dL (8.8-10.2); CHLORIDE 104 mmol/L (98-107); COSMO 284; POTASSIUM 3.8 mmol/L (3.5-5.1); SODIUM 144 mmol/L (136-145); TCO2 29 mmol/L (25-35)
[2016-05-29] MEDS: NS 1,000 ML IV SCH (09:08)
[2016-05-29] MEDS: TOPROL XL PO SCH (09:40)
[2016-05-29] MEDS: PRINIVIL PO SCH (09:40)
[2016-05-29] MEDS: LOVENOX SUBQ SCH (09:41)
[2016-05-29] MEDS: MIRALAX PO SCH (09:41)
[2016-05-29] MEDS ORDERED: NS 250 ML ONE (11:47)
[2016-05-29 12:38] LABS: INR 1.03; PROTIME 10.9 Seconds (9.2-11.7)
--- NOTE | 2016-05-29 12:57 | PROGRESS NOTE ---
DATE: 05/29/2016 SUBJECTIVE: She feels well. She is eating. She is tolerating a full liquid diet with Ensure supplements. Normal bowel function for her. No abdominal pain. Mental status improved. No signs of ongoing systemic infection at this point. Abdomen is soft, nontender, nondistended. No fevers, no tachycardia. ASSESSMENT AND PLAN: A 59-year-old female with chronic partial bowel obstruction related to multiple abdominal operations for previous gynecologic cancer and likely radiation changes of her small bowel that is causing some degree of partial obstruction. I do not know that she has short gut syndrome as once was discussed, but she did present now with bacteremia and florid sepsis related to PICC line infection. In the interim, her blood cultures were obtained, fevers have resolved, an echo has been normal, and she seems to be tolerating her modified diet with Ensure supplementations with normal bowel function. I would recommend PICC placement with a course of outpatient antibiotics as planned, as opposed to Roque catheter as I feel infection risks would be equal. I think that she will likely be able to maintain with her modified diet, Ensure supplementations and nutrition, with the goal of hopefully not requiring total parenteral nutrition in the future. However if in the future she does continue to lose weight, nutrition parameters are not adequate, then she may require Roque catheter for total parenteral nutrition in the future, but I think it is worth a trial with her new modified diet and Ensure supplements. Trying this with the hopes of preventing future infectious complications related to total parenteral nutrition. We will be happy to follow her. Nursing making arrangements for PICC line today. If Dr. Evangelista feels that total parenteral nutrition is indicated in the future, I would be happy to see him in my office, place in a Roque catheter.
[2016-05-29 13:02] VITALS: BP 128/79
[2016-05-29] MEDS: PROTONIX IV SCH (13:54)
[2016-05-29] MEDS: SODIUM CHLORIDE 0.9% INJ SCH (13:55)
--- NOTE | 2016-05-29 14:38 | Diag Imaging Result Document ---
PROCEDURE NAME: CHEST-PORTABLE - 05/29/2016 AP PORTABLE CHEST: TIME: 1315 hours. FINDINGS: There is a right PICC line with its tip in the superior vena cava. There is an opacity in the left lower lobe which may be due to bronchiectasis and was present on 05/27/2016. There is considerably more opacification in the left lower lobe on the CT of 05/19/2016. There is some atelectasis present in the right base laterally which was also present on previous studies. IMPRESSION: Atelectasis. Stable since 05/27/2016.
--- NOTE | 2016-05-29 17:06 | DISCHARGE SUMMARY ---
ADMISSION DATE: 05/18/2016 DISCHARGE DATE: 05/29/2016 CONSULTATIONS: Dr. Franky Multani with infectious disease. Dr. Bennie Luther with general surgery. Dr. Diamond with gastroenterology. Dr. Hilton Walter with neurology. Dr. Bhatti with cardiology. DISCHARGE DIAGNOSES: 1. Chronic partial small bowel obstruction related to multiple abdominal operations for previous gynecologic cancers and likely radiation changes of her small bowel causing some degree of a partial obstruction, stable. 2. Short bowel syndrome, chronic diarrhea, mild absorption syndrome as well as malnutrition. Patient is following a diet with Ensure supplementation, as well as tolerating a full liquid diet. 3. Bacteremia with enterococcus, followed by infectious disease, Dr. Franky Multani. She will receive a PICC line and go home on 2 weeks of IV antibiotics, unless the culture from the liver aspiration is positive and then she will need at least 6 weeks of antibiotics. 4. Hypertension, stable. 5. Urinary tract infection secondary to enterococcus faecalis. Patient was on IV antibiotics. She will continue on IV antibiotics. 6. Embolic cerebrovascular accident. Continue with her aspirin and physical therapy. HOSPITAL COURSE: Briefly, Ms. Paula is a 61-year-old female with history of hypertension, COPD, chronic partial bowel obstructions related to multiple abdominal operations from a previous gynecological cancer likely causing radiation changes to her small bowel that called the short bowel syndrome as well as malabsorption. Patient reported to the ED complaining of weakness and not feeling well. She was evaluated in the ED and found have a low sodium. There were also issues regarding constipation for several days. Initially the patient had gone to [facility] several days ago and had an x-ray and scanning done that did show some intestinal obstruction and was told to follow up. On the day of her admission she did have some imaging that showed loops of bowel. The patient was admitted to the medical floor. She was kept NPO and on fluid restriction and started on IV fluids with a surgical consult and serial abdominal exams. The patient had another bout of weakness, complains of being foggy. They did a brain MRI that showed foci of acute or subacute ischemia in the posterior parietal lobes bilaterally. The possibility of an embolic source should be considered. Dr. Mcgovern consulted Dr. Walter. Patient did undergo an echocardiogram as well as carotid Dopplers. The patient was found to have a enterococcus faecalis bacteremia and an E. coli UTI, so with the possible case of bacterial endocarditis cardiology recommended a KAY. There was no clear evidence of any vegetation. There was no evidence of clot in the left atrium. Left atrial appendage was visualized well with no evidence of blood clot on 2 dimensional imaging. The aortic valve showed no evidence of vegetation. Dr. Bennie Luther stated that the infection was related to a PICC line. He was consulted again for PICC line versus Roque for TPN. However, he recommended a PICC line placement for outpatient antibiotics as opposed to the Roque catheter, as he felt infection risk would be equal and he thinks that she would likely be able to maintain her modified diet with Ensure supplementation and her nutrition with the goal of hopefully not requiring TPN in the future. He stated that in the future if she did require TPN he could definitely put in a Roque but he felt it was necessary to give it a trial run with modifications of her diet and Ensure supplements, with hopes of preventing future infections and complications related to TPN. Again, patient's echocardiogram and KAY were completely normal, did not show any endocarditis. Dr. Franky Multani will treat the patient with IV antibiotics with ampicillin as well as gentamicin. She will follow up with him in 3 weeks after discharge. She also had a large liver cyst that was aspirated on 05/27/2016, awaiting those results. As per Dr. Multani, the enterococcal bacteremia has been extremely difficult to eradicate and he will follow her closely. Again, the patient is being discharged home today. DISCHARGE EXAMINATION: Vital signs: Temperature is 98.3 degrees, heart rate 67 , respirations 19, blood pressure 128/79, O2 is 97% on room air. DISCHARGE DIET: Full liquids with Ensure supplementation. DISCHARGE MEDICATIONS: As per Dr. Yogesh Bravo. Please see MAR. FOLLOWUP: Patient is being discharged home. She will follow up with her primary care physician, Dr. Ricco Sepulveda, in 1 week [address] Dr. Franky Multani in 3 weeks. Patient will have a [facility] at the time of discharge and home infusion set up with [facility]. The patient can return to the ED for any worsening of symptoms. Dictated by EDWARD Benítez for Siddhartha Bravo MD Addendum: I personally evaluated and examined the patient in conjunction to the MOVEMENT ASSEMBLER and agreed with her assessment and disposition. Had a PICC line in. No bleeding around the site on exam. KADY
== END 2016-05-29 16:12 | disposition home health service (06) | DRG 314 ==
LOC: EDBD → ED 13:09 → SUPCPDRO 13:09 → 3N 23:07
PROVIDERS: ATTEND Internal Medicine
PROC: 02PYX3Z Removal of Infusion Device from Great Vessel, External Approach (ICD-10-PCS; 2016-05-19)
PROC: B24BZZ4 Ultrasonography of Heart with Aorta, Transesophageal (ICD-10-PCS; principal; 2016-05-27)
PROC: 0F913ZX Drainage of Right Lobe Liver, Percutaneous Approach, Diagnostic (ICD-10-PCS; 2016-05-27)
PROC: 02HV33Z Insertion of Infusion Device into Superior Vena Cava, Percutaneous Approach (ICD-10-PCS; 2016-05-29)
DX: T80.211A Bloodstream infection due to central venous catheter, initial encounter (principal); I63.443 Cerebral infarction due to embolism of bilateral cerebellar arteries; E43 Unspecified severe protein-calorie malnutrition; K56.69 Other intestinal obstruction; K91.2 Postsurgical malabsorption, not elsewhere classified; R64 Cachexia; R78.81 Bacteremia; K52.0 Gastroenteritis and colitis due to radiation; I50.9 Heart failure, unspecified; I11.0 Hypertensive heart disease with heart failure; K76.89 Other specified diseases of liver; N39.0 Urinary tract infection, site not specified; Z68.1 Body mass index [BMI] 19.9 or less, adult; E87.1 Hypo-osmolality and hyponatremia; B95.2 Enterococcus as the cause of diseases classified elsewhere; F17.218 Nicotine dependence, cigarettes, with other nicotine-induced disorders; Y84.2 Radiological procedure and radiotherapy as the cause of abnormal reaction of the patient, or of later complication, without mention of misadventure at the time of the procedure; E89.2 Postprocedural hypoparathyroidism; M81.0 Age-related osteoporosis without current pathological fracture; K59.09 Other constipation; J43.9 Emphysema, unspecified; K21.9 Gastro-esophageal reflux disease without esophagitis; D50.9 Iron deficiency anemia, unspecified; E87.6 Hypokalemia; D63.8 Anemia in other chronic diseases classified elsewhere; E83.42 Hypomagnesemia; E83.39 Other disorders of phosphorus metabolism; I25.118 Atherosclerotic heart disease of native coronary artery with other forms of angina pectoris; K80.20 Calculus of gallbladder without cholecystitis without obstruction; Z85.41 Personal history of malignant neoplasm of cervix uteri; I25.2 Old myocardial infarction; Z83.3 Family history of diabetes mellitus; Z80.9 Family history of malignant neoplasm, unspecified; Z82.49 Family history of ischemic heart disease and other diseases of the circulatory system; Z90.49 Acquired absence of other specified parts of digestive tract; Z79.899 Other long term (current) drug therapy; Z79.51 Long term (current) use of inhaled steroids; Z95.5 Presence of coronary angioplasty implant and graft; Z80.7 Family history of other malignant neoplasms of lymphoid, hematopoietic and related tissues
CPT/HCPCS: 36415; 36569; 49405; 70551; 71010; 71020; 71250; 74020; 74177; 76700; 78227; 80048; 80053; 80170; 81001; 82040; 82306; 82550; 82607; 82728; 82746; 82784; 83540; 83550; 83690; 83735; 83880; 84100; 84439; 84443; 84484; 85025; 85027; 85610; 85651; 85730; 86141; 87040; 87070; 87077; 87088; 87186; 87804; 88112; 89051; 93005; 93306; 93312; 93880; 94640; 96374; A9537; C9113; J0131; J0290; J1580; J1650; J1885; J2270; J2405; J3370; J3475; J7030; J7050; J7120; Q9967; 92610-GN; 97116-GP; 97530-GP; S0164

== ENCOUNTER 2016-08-21 15:13 | Inpatient (IN) ==
--- NOTE | 2016-08-21 16:20 | PROVIDER DOCUMENTATION ---
HPI-Abdominal Pain/GI Problem - General Chief Complaint: N/V/D Stated Complaint: N/V/D POSS DEHYDRATION Time Seen by Provider: 08/21/16 16:00 Source: patient, old records Allergies/Adverse Reactions: Patient Allergies Allergy/AdvReac Type Severity Reaction Status Date / Time No Known Allergies Allergy Verified 08/21/16 17:33 Home Medications: Home Medication List Medication Instructions Recorded Confirmed Last Taken Type Tiotropium [place] Inhaler 1 puff INH RTDAILY 12/10/12 08/21/16 1 Day Ago History [Spiriva] Metoprolol Succinate E.r. [Toprol 100 mg PO DAILY #30 tablet 12/28/12 08/21/16 02/05/15 Rx Xl] Alprazolam [Xanax] 1 mg PO TID 06/18/13 08/21/16 02/05/15 History Omeprazole [Prilosec] 40 mg PO BID #0 capsule. 06/21/13 08/21/16 1 Day Ago Rx Docusate Sodium [Colace] 100 mg PO DAILY #10 capsule 04/23/16 08/21/16 Unknown Rx Albuterol Sulfate [Proair 90 mcg IH TID 05/18/16 08/21/16 Unknown History Respiclick] Budesonide/Formoterol Inhaler 60 puff .SEE ORDER DAILY 05/18/16 08/21/16 Unknown History [Symbicort 160/4.5 Microgm Inhaler] Lisinopril 20 mg PO DAILY 05/18/16 08/21/16 Unknown History Mirtazapine 15 mg PO DAILY 05/18/16 08/21/16 Unknown History Potassium Chloride 10% Liquid 20 meq PO DAILY 05/18/16 08/21/16 Unknown History Hydrocodone/APAP 10 mg/325 mg 1 each PO TID 05/20/16 08/21/16 Unknown History [[place]-10] Amlodipine [Norvasc] 10 mg PO DAILY #60 tablet 08/23/16 Unknown Rx Cholecalciferol (Vit D3) [Vitamin 1,000 unit PO DAILY #60 tablet 08/23/16 Unknown Rx D3] Magnesium Oxide [Magnesium] 800 mg PO BID #60 capsule 08/23/16 Unknown Rx - History of Present Illness-ABD Nature of Presenting Problems: patient has hx of radiation enteritis and short bowel syndrome, w/ recurrent partial SBO (and more commonly constip vs. diarrhea), but now reports abd cramping and 10-15 loose, watery, non-bloody stools past few days. no fever. stools are dark (on P Bismol). doesn't take Immodium for fear of SBO. also has hx of mult 'lyte abnl, CHF. hx of recent TPN discontinuation, and recent completion of IV abx per PICC for enterococcus (Dr. Multani), completed. Review of Systems - Adult - REVIEW OF SYSTEMS - ADULT Constitutional: reports: no symptoms reported Eyes: reports: no symptoms reported Ears, Nose, Mouth & Throat: reports: no symptoms reported Cardiovascular: reports: no symptoms reported Respiratory: reports: no symptoms reported Gastrointestinal: reports: see HPI, diarrhea. denies: rectal bleeding, vomiting Genitourinary: reports: no symptoms reported Musculoskeletal: reports: no symptoms reported Integumentary: reports: no symptoms reported Neurological: reports: no symptoms reported Psychiatric: reports: no symptoms reported Past History - Adult - PAST MEDICAL HISTORY-ADULT Review of Records: reports: Old Records Reviewed Major Childhood Illnesses: reports: denies history Cardiovascular: reports: CAD, HTN, [place] Respiratory: reports: asthma, COPD Gastrointestinal: reports: GERD, IBS, other (obstruction) Obstetrical/Gynecological: reports: other (cervical ca) Genitourinary: reports: denies history Musculoskeletal: reports: denies history Neurological: reports: denies history Psychiatric: reports: anxiety, depression Endocrine/Immune: reports: thyroid disorder Other Conditions: reports: denies history - PRIOR SURGERIES/PROCEDURES Surgical/Procedure History: reports: bowel surgery, other, appendectomy, cardiac stent - PRIOR HOSPITALIZATIONS Prior Hospitalizations: reports: for similar symptoms - IMMUNIZATION STATUS Childhood Immunizations: See Nurse Assessment Flu Vaccine: See Nurse Assessment - FAMILY HISTORY Family History: reviewed, not pertinent Physical Exam-General - PHYSICAL EXAM-ADULT Initial Vital Signs Reviewed: Yes - CONSTITUTIONAL General Appearance: mild distress - EYES Eyes: PERRL/EOMI, pink conjunctivae - HEAD, EARS, NOSE, MOUTH & THROAT HENMT: normocephalic/atraumatic - NECK Neck: non-tender. negative: Brudzinski's sign - RESPIRATORY Respiratory: chest non-tender, lungs clear, normal breath sounds - CARDIOVASCULAR Cardiovascular: normal peripheral pulses, regular rate, rhythm - GASTROINTESTINAL (ABDOMEN) Abdominal Exam: normal bowel sounds, non tender, soft, no pulsatile mass - LYMPHATIC Lymphatic: no adenopathy - MUSCULOSKELETAL Back Exam: normal inspection Extremity: normal range of motion, normal gait - SKIN Integumentary: normal color, warm/dry. negative: rash - NEUROLOGIC Neurologic: psychologists II-XII nml as tested, grossly normal, no motor/sensory deficits . negative: abnormal gait Progress - PLAN OF CARE/RESULTS Progress/Plan/Lab Results: Vital Signs - 8 hr 08/21/16 15:33 Temperature 97.7 F Pulse Rate 90 Respiratory Rate 18 Blood Pressure 146/101 O2 Sat by Pulse Oximetry 100 Orders Category Date Time Status NPO Diet 08/21/16 15:41 Active AMYLASE [CHEM] Stat Lab 08/21/16 15:41 Uncollected CBC WITH ELECTRONIC DIFF [HEME] Stat Lab 08/21/16 15:41 Uncollected COMPREHENSIVE METABOLIC PANEL [CHEM] Stat Lab 08/21/16 15:41 Uncollected LIPASE [CHEM] Stat Lab 08/21/16 15:41 Uncollected MAGNESIUM [CHEM] Stat Lab 08/21/16 16:06 Uncollected URINALYSIS W/POSS RFLX CULT-1 [URINALYSIS] Stat Lab 08/21/16 15:41 Uncollected Result Diagrams: 08/23/16 05:30 08/23/16 05:30 Departure - Departure Time of Disposition Decision: 17:30 DIAGNOSIS: Hypomagnesemia Disposition: ADMITTED INPATIENT 09 Certified Medical Emergency: Emergent Condition: Stable - Critical Care Note This patient required my direct & personal management of CC.: Yes
[2016-08-21 16:34] LABS: MANUAL DIFF NEEDED? NO
[2016-08-21 16:37] LABS: BASO% 0.7 % (0.0-0.8); EOS# 0.13 X1000 (0.0-0.7); EOS% 2.2 % (0.0-10.0); IMM GRAN# 0.02 X1000 (0.0-0.04); IMM GRAN% 0.3 % (0.0-0.5); LYMPH# 1.58 X1000 (1.2-3.4); LYMPH% 26.2 % (20.5-51.1); MCH 29.4 PG (27-31); MCHC 33.3 g/dL (33-37); MCV 88.2 FL (81-99); MONO# 0.52 X1000 (0.11-0.59); MONO% 8.6 % (1.7-9.3); PLT 268 X1000 (130-400); RBC 4.76 XMIL (4.2-5.4)
[2016-08-21 17:16] LABS: AGAP 14; ALBUMIN 3.1 g/dL (3.5-5.0); ALKALINE PHOSPHATASE 169 U/L (32-104); AMYLASE 98 U/L (20-200); BUN 7 mg/dL (8-22); CHLORIDE 105 mmol/L (98-107); COSMO 279; GOT 21 U/L (10-30); GPT 12 U/L (10-36); LIPASE 41 U/L (13-60); MAGNESIUM 0.3 mg/dL (1.5-2.7); POTASSIUM 3.6 mmol/L (3.5-5.1); SODIUM 141 mmol/L (136-145); TCO2 22 mmol/L (25-35); TOTAL BILIRUBIN 0.26 mg/dL (0.20-1.00); TOTAL PROTEIN 6.2 g/dL (6.3-8.3)
[2016-08-21 17:20] LABS: CALCIUM 5.2 mg/dL (8.8-10.2)
[2016-08-21] MEDS ORDERED: MAGNESIUM SULFATE 4 GM/S.W.I. 4 GM/100 ML IVPB IV ONE (17:24)
[2016-08-21] MEDS ORDERED: CALCIUM CHLORIDE SYRINGE IV ONE (17:24)
[2016-08-21 17:57] LABS: URINE CULTURE NEEDED? NO; URINE MICRO REVIEW NEEDED? NO; URINE SOURCE CLEAN CATCH
[2016-08-21 18:00] LABS: BILIRUBIN URINE NEGATIVE (NEGATIVE); BLOOD URINE NEGATIVE (NEGATIVE); COLOR STRAW; GLUCOSE URINE NEGATIVE (NEGATIVE); LEUKOCYTES URINE NEGATIVE (NEGATIVE); NITRITE URINE NEGATIVE (NEGATIVE); PH URINE 5.5; PROTEIN URINE NEGATIVE (NEGATIVE); SP GRAVITY URINE 1.003; TURBIDITY URINE CLEAR (CLEAR); UROBILINOGEN URINE NORMAL (NORMAL)
[2016-08-21 18:01] LABS: UR EPITHELIAL CELLS <10 /HPF (<10); URINE BACTERIA NEGATIVE /HPF; URINE RBC <10 /HPF (<10); URINE WBC <10 /HPF (<10)
--- NOTE | 2016-08-21 18:39 | HISTORY AND PHYSICAL ---
PRESENTING COMPLAINT: Abdominal pain. Multiple episodes of diarrhea. PRIMARY CARE PHYSICIAN: Ricco Sepulveda MD HISTORY OF PRESENTING COMPLAINT: Ms. Paula is a 61-year-old female, who was just recently discharged from the hospital on 05/29/2016, was admitted for over 10 days due to the sepsis with bacteremia related to central line and TPN. The patient refers to have been relatively fine after the discharge; however, her diarrhea is just getting worse to the point that for the past 3 days she has been going 10-20 times diarrhea, anything she just puts in her mouth she will have diarrhea which is nonbloody, watery associated with tenesmus and fecal urgency. Of note, patient has a history of cervical cancer status post radiation therapy. Subsequent to that, she developed multiple episodes of small-bowel obstructions with multiple surgeries. There is the belief that she has developed short bowel syndrome. Patient was as I said discharged at 1 point with TPN, but had to come back because of central line-related sepsis. Over here patient was evaluated in the ER, and her lab work revealed magnesium level was 0.3, calcium of 5.2 so was deemed necessary to get her admitted and replace all her electrolytes. PAST MEDICAL HISTORY: 1. Hypertension. 2. Previous gynecological cancer. 3. COPD. 4. Active tobacco use. PAST SURGICAL HISTORY: 1. Multiple abdominal surgeries due to intestinal obstruction. The last one documented in her EMR was done by Dr. Durbin on 12/20/2012. ALLERGIES: None. CURRENT MEDICATIONS: Listed in the EMR. SOCIAL HISTORY: The patient has a history of 40 pack years of smoking. Continues to be smoking almost a pack per day. Denies alcohol or illicit drug use. FAMILY HISTORY: Unremarkable. REVIEW OF SYSTEMS: A 14 point review of system conducted with the patient. Unremarkable except what we have in the HPI. Specifically, patient denies any chest pain, shortness of breath. Denies any cough or hemoptysis. No headaches. No vomiting. PHYSICAL EXAMINATION: VITAL SIGNS: Blood pressure is 163/101. Pulse is 82, respiration is 23, temperature is 97.7 degrees. GENERAL: Ms. Paula is a 61-year-old female. She looks malnourished. BMI is 15. She is in bed. HEENT: Head is normocephalic and atraumatic. Mucosa is slightly dry. Anicteric and acyanotic. NECK: Neck is supple. There is an old anterior scar consistent with previous thyroid surgery. There is no JVD and no carotid bruit. CHEST: Good air entry bilateral. There is a mild prolongation of the expiratory phase of respiration. CARDIOVASCULAR: Regular rate and rhythm. No murmurs, no rubs. No gallops. ABDOMEN: Soft, mildly tender all over. Bowel sounds are hyperactive. There is an old midline abdominal wall surgical scar consistent with a history of multiple surgeries. EXTREMITIES: No pedal edema. Distal pulses are present. HEEL COVERER MACHINE OPERATOR: Patient is alert, awake, oriented. Seems to have issues with memory. Cranial nerves 2-12 have been grossly examined and are unremarkable. Power is 5/5 in all extremities. There is no sensory deficit. Cerebellar functions seems to be intact. LABORATORY DATA: WBC is 6.02, hemoglobin is 14.4, platelet count of 268,000. Chemistry: Sodium is 141, potassium is 3.6, chloride is 105, bicarb is 22, BUN is 7, creatinine 0.8. Calcium is 5.2, magnesium is 0.3, alkaline phosphatase is 168. ASSESSMENT AND PLAN: Ms. Paula is a 61-year-old female with frequent hospitalization due to what is perceived to be small bowel syndrome, came in with profuse frequent diarrhea in a number of 10-20 on daily basis. 1. Frequent diarrhea. Suspected to be due to short-bowel syndrome. We are going to admit the patient. Do stool studies to rule out any possible infectious etiology that might have flared the underlying small bowel disease. 2. Clinical dehydration secondary to #1. 3. Mild cognitive decline. 4. Multivitamin and mineral deficiencies. We are going to replace the calcium and the magnesium. We will check vitamin D levels and also phosphorus and replace all that she is deficient in. 5. Suspected short-bowel syndrome secondary to multiple gastrointestinal surgeries, noted. 6. Active tobacco use. Patient has been counseled. 7. Generalized weakness with underweight likely due to the gastrointestinal pathology from malabsorption. PLAN: In general I think Ms. Paula is relatively stable. We are going to admit her to medical floor with site monitor. Hydrate her, replace all her electrolytes. Send her stools for studies and hopefully be able to control some of her symptoms and get her discharged as early as possible. cc: Maxim Brothers MD
[2016-08-21] MEDS: LOVENOX SUBQ SCH (19:03)
[2016-08-21] MEDS: NS 1,000 ML IV SCH (19:03)
[2016-08-21] MEDS: MAG-OX PO SCH (20:41)
[2016-08-22 04:45] LABS: MANUAL DIFF NEEDED? NO
[2016-08-22] MEDS: NORCO-10 PO PRN ×2 (04:47→15:54)
[2016-08-22 04:57] LABS: BASO% 0.6 % (0.0-0.8); EOS% 1.5 % (0.0-10.0); HEMATOCRIT 37.3 % (37.0-47.0); HEMOGLOBIN 12.5 g/dL (12.0-16.0); IMM GRAN# 0.03 X1000 (0.0-0.04); IMM GRAN% 0.5 % (0.0-0.5); LYMPH# 1.08 X1000 (1.2-3.4); LYMPH% 16.6 % (20.5-51.1); MCH 29.3 PG (27-31); MCHC 33.5 g/dL (33-37); MCV 87.4 FL (81-99); MONO# 0.43 X1000 (0.11-0.59); MONO% 6.6 % (1.7-9.3); MPV 11.1 FL (7.4-10.4); NEUT% 74.2 % (42.2-75.2); PLT 252 X1000 (130-400); RBC 4.27 XMIL (4.2-5.4)
[2016-08-22 05:25] LABS: AGAP 12; ALBUMIN 2.5 g/dL (3.5-5.0); ALKALINE PHOSPHATASE 148 U/L (32-104); BUN 6 mg/dL (8-22); CHLORIDE 111 mmol/L (98-107); COSMO 280; GOT 18 U/L (10-30); GPT 8 U/L (10-36); MAGNESIUM 1.7 mg/dL (1.5-2.7); POTASSIUM 3.8 mmol/L (3.5-5.1); SODIUM 142 mmol/L (136-145); TCO2 19 mmol/L (25-35); TOTAL BILIRUBIN 0.43 mg/dL (0.20-1.00); TOTAL PROTEIN 5.2 g/dL (6.3-8.3)
[2016-08-22] MEDS: NS 1,000 ML IV SCH (05:36)
[2016-08-22 05:39] LABS: CALCIUM 6.5 mg/dL (8.8-10.2)
[2016-08-22] MEDS ORDERED: CALCIUM GLUCONATE 2 GM in NS 100 ML IV ONE (05:49)
[2016-08-22] MEDS: 1/2 NS 1,000 ML IV SCH ×4 (05:53→21:33)
[2016-08-22] MEDS ORDERED: SPIRIVA INH SCH (07:30)
[2016-08-22] MEDS: REMERON PO SCH (08:30)
[2016-08-22] MEDS: MAG-OX PO SCH ×2 (08:30→21:31)
[2016-08-22] MEDS: TOPROL XL PO SCH (08:30)
[2016-08-22] MEDS: PRINIVIL PO SCH (08:30)
[2016-08-22] MEDS: XANAX PO SCH ×3 (08:30→17:13)
[2016-08-22] MEDS ORDERED: SYMBICORT 160/4.5 MICROGM INHALER SCH (09:00)
--- NOTE | 2016-08-22 10:19 | PROGRESS NOTE ---
DATE: 08/22/2016 SUBJECTIVE: Today, Ms. Paula refers to be doing a whole lot better. According to her, she had only 1 bowel movement when she came up here on the floor and it there is a documented 1, which is hard and brown, so there is no actual diarrhea. OBJECTIVE: Vital signs: Blood pressure is 173/89, pulse of 75, respirations 15 , temperature 98.9 degrees. General: Ms. Paula is a 61-year-old female. She is in bed, not in any distress. HEENT: Mucosa is slightly dry. Anicteric. Acyanotic. Neck: Supple. Chest: Clear. Cardiovascular: Regular rate and rhythm. Abdomen: Soft, distended. Bowel sounds are hypoactive but no hepatosplenomegaly. GROUP CHIEF OPERATOR: Patient is alert and oriented x4. There is no focal neurological deficit. LABORATORY DATA: WBC is 6.51, hemoglobin is 12.5, platelet count of 252,000. Chemistries reviewed. Sodium is 141, potassium is 3.8, chloride is 111, bicarb is 19. Glucose is 88, calcium is 6.5. Magnesium is 1.7. Patient's albumin is 2.5. Vitamin D is 15. ASSESSMENT: 1. Chronic diarrhea. Patient is presumed to have short-bowel syndrome. The diarrhea according to her, she was having anywhere between 10-20 episodes on a daily basis, yet since admission, she has not had any. Abdomen is slightly distended. I think she probably has some constipation issues as well. So, I will do a KUB to follow up on that. 2. Clinical dehydration. Hydration status is improving. We will continue with the current fluids. We will change it to half-normal saline because of mild hyperchloremic acidemia. 3. Multivitamin and mineral deficiencies, including vitamin D deficiency. We will replace this. 4. Critical hypomagnesemia. This has resolved. 5. Active tobacco use. Patient has been counseled. 6. Generalized weakness likely due to a protein calorie malnutrition and also mineral deficiencies. Will replace all of that and we will also encourage the patient to participate with physical therapy. 7. uncontrolled hypertension. We will start her on amlodipine in conjunction with her lisinopril. PLAN: I think in general, Ms. Paula is now stable. We will going to transfer her from the ICU to regular floor. Continue with the IV fluids. We will continue with the current regimen of IV fluids but with half-normal saline. We have restarted her on p.o. magnesium. If there is no more diarrhea and KUB is not horrible, we might be able to discharge the patient home in the morning. cc: Maxim Brothers MD MTDD
--- NOTE | 2016-08-22 10:21 | Diag Imaging Result Doc PS360 ---
KUB ABDOMEN - 08/22/2016 INDICATION: abd distension/constipation TECHNIQUE: COMPARISON: 05/25/2016 FINDINGS: Stable surgical clips and suture lines in the pelvic soft tissues. The bowel is rather diffusely hyperinflated with gas, more so than the prior exam. Etiology is unclear. No evidence of free air. IMPRESSION: Worsening, diffuse bowel hyperinflation with gas. Compatible with ileus. No significant formed stool or constipation. Electronically signed by Lon Arevalo 08/22/2016 10:18 AM
[2016-08-22] MEDS: NORVASC PO SCH ×2 (12:05→21:31)
[2016-08-22] MEDS ORDERED: MAGNESIUM SULFATE 2 GM/S.W.I. 2 GM/50 ML IVPB IV ONE (12:49)
[2016-08-22] MEDS: LOVENOX SUBQ SCH (17:15)
[2016-08-23 06:02] LABS: MANUAL DIFF NEEDED? NO
[2016-08-23 06:15] LABS: BASO% 0.4 % (0.0-0.8); EOS# 0.11 X1000 (0.0-0.7); EOS% 2.2 % (0.0-10.0); HEMATOCRIT 37.3 % (37.0-47.0); HEMOGLOBIN 12.5 g/dL (12.0-16.0); IMM GRAN# 0.02 X1000 (0.0-0.04); IMM GRAN% 0.4 % (0.0-0.5); LYMPH# 0.85 X1000 (1.2-3.4); LYMPH% 17.3 % (20.5-51.1); MCH 29.3 PG (27-31); MCHC 33.5 g/dL (33-37); MCV 87.6 FL (81-99); MONO# 0.37 X1000 (0.11-0.59); MONO% 7.5 % (1.7-9.3); MPV 11.1 FL (7.4-10.4); NEUT% 72.2 % (42.2-75.2); PLT 237 X1000 (130-400); RBC 4.26 XMIL (4.2-5.4)
[2016-08-23 06:23] LABS: AGAP 11; BUN 8 mg/dL (8-22); CALCIUM 7.7 mg/dL (8.8-10.2); CHLORIDE 109 mmol/L (98-107); COSMO 281; SODIUM 142 mmol/L (136-145); TCO2 22 mmol/L (25-35)
[2016-08-23] MEDS: NORCO-10 PO PRN (06:37)
[2016-08-23] MEDS: TOPROL XL PO SCH (08:03)
[2016-08-23] MEDS: REMERON PO SCH (08:03)
[2016-08-23] MEDS: NORVASC PO SCH (08:03)
[2016-08-23] MEDS: MAG-OX PO SCH (08:03)
[2016-08-23] MEDS: PRINIVIL PO SCH (08:04)
[2016-08-23] MEDS: XANAX PO SCH (08:04)
[2016-08-23 12:06] VITALS: BP 157/110
--- NOTE | 2016-08-23 16:36 | DISCHARGE SUMMARY ---
ADMISSION DATE: 08/21/2016 DISCHARGE DATE: 08/23/2016 DISPOSITION: Home. FOLLOWUP: 1. Dr. Ricco Sepulveda. 2. Dr. Antwon Diamond. CONSULTATION DURING THIS ADMISSION: None. IMAGING STUDIES: Of significance x-ray of the abdomen was done, and shows some ileus. ADMISSION DIAGNOSES: 1. Frequent diarrhea. 2. Clinical dehydration. 3. Mild cognitive decline. 4. Vitamin and mineral deficiencies. 5. Suspect the short-bowel syndrome. 6. Generalized weakness. DISCHARGE DIAGNOSES: 1. 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 2. Clinical dehydration improved. 3. Vitamin D deficiencies. 4. Critical hypomagnesemia resolved. 5. Active tobacco use. 6. Generalized weakness due to protein calorie malnutrition and mineral deficiencies. 7. Uncontrolled hypertension improved. DISCHARGE MEDICATIONS: 1. Metoprolol 100 mg daily. 2. Alprazolam 1 mg 3 times per day. 3. Omeprazole 40 mg b.i.d. 4. Docusate 100 mg daily. 5. Albuterol inhaler. 6. Mirtazapine 50 mg daily. 7. Lisinopril 20 mg daily. 8. Amlodipine 10 mg daily. 9. Cholecalciferol 1000 units p.o. daily. 10. Magnesium oxide 800 mg b.i.d. PRESENTING COMPLAINT: Abdominal pain, multiple episodes of diarrhea. HISTORY OF PRESENTING COMPLAINT: Ms. Paula is a 61-year-old female with multiple admissions in the past. The patient was even on TPN at some point, because of short bowel syndrome. Came in this time because she was having about 10-20 episodes of diarrhea on a regular basis and potassium level was 0.3. The patient was subsequently admitted for critical hypomagnesemia and severe dehydration. HOSPITAL COURSE: The patient was initially admitted to the ICU. Adequately hydrated and magnesium was replenished. This improved to 1.7. Today it is 1.8. The patient is now completely asymptomatic. We did a stool test which was completely negative. As a matter of fact, once patient was in the hospital she did not have any more liquid bowel. The one we will run the test on was a hard bowel movement and that was only 1 patient had in the 2 days of being in hospital. Today she refers to be doing a whole lot better. No cramps and no abdominal problems. Her vitals today blood pressure is 148/74, pulse of 85, respirations 16, temperature 98.5 degrees. The patient's physical exam is completely unremarkable. Hydration status has improved and abdominal distention has also improved. Her lab work has also been reviewed. Chemistry is completely unremarkable. Her magnesium as I said is back to 1.8. 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 Patient has been advised to stay away from the multiple use of anti constipation medications since we think this probably is also contributing to her diarrhea. All the discharge instructions have been discussed with the patient and she voices understanding. Patient is going to be discharged in a very stable condition. Time spent for discharge was 35minutes cc: Maxim Brothers MD MTDD
[2016-08-24] MEDS ORDERED: VITAMIN D PO SCH (09:00)
== END 2016-08-23 12:35 | disposition home or self-care (01) ==
LOC: ED 15:13 → ICU 18:35 → 3N 08-22 14:21
PROVIDERS: ATTEND Internal Medicine

== ENCOUNTER 2016-11-19 08:34 | Observation (INO) ==
[2016-11-19] MEDS ORDERED: NS 1,000 ML IV ONE (09:36)
[2016-11-19] MEDS ORDERED: ASPIRIN PO STA (09:36)
[2016-11-19 09:58] LABS: MANUAL DIFF NEEDED? NO
--- NOTE | 2016-11-19 10:01 | Diag Imaging Result Doc PS360 ---
EXAM: CHEST-2 VIEWS HISTORY: CP TECHNIQUE: Two views COMPARISON: 06/19/2016 FINDINGS: The lungs are hyperexpanded. There is an increased AP diameter to the chest. The pulmonary vessels are small. Calcified granuloma in the left lung. No infiltrates. No pleural effusions. No cardiomegaly. Deformity posterior left rib is similar to that of the prior exam. IMPRESSION: Emphysema Electronically signed by Lisandro Veras 11/19/2016 9:59 AM
[2016-11-19 10:09] LABS: BASO% 0.6 % (0.0-0.8); EOS# 0.04 X1000 (0.0-0.7); EOS% 0.8 % (0.0-10.0); HEMATOCRIT 41.7 % (37.0-47.0); HEMOGLOBIN 14.4 g/dL (12.0-16.0); LYMPH% 19.2 % (20.5-51.1); MCH 31.2 PG (27-31); MCHC 34.5 g/dL (33-37); MCV 90.5 FL (81-99); MONO# 0.39 X1000 (0.11-0.59); MONO% 7.5 % (1.7-9.3); MPV 12.1 FL (7.4-10.4); NEUT% 71.9 % (42.2-75.2); PLT 237 X1000 (130-400); RBC 4.61 XMIL (4.2-5.4)
[2016-11-19 10:18] LABS: URINE CULTURE NEEDED? NO; URINE MICRO REVIEW NEEDED? NO; URINE SOURCE CLEAN CATCH
[2016-11-19 10:19] LABS: INR 1.08; PROTIME 11.4 Seconds (9.2-11.7); PTT 28.4 Seconds (22.0-36.0)
[2016-11-19 10:25] LABS: BILIRUBIN URINE NEGATIVE (NEGATIVE); BLOOD URINE NEGATIVE (NEGATIVE); COLOR YELLOW; GLUCOSE URINE NEGATIVE (NEGATIVE); LEUKOCYTES URINE NEGATIVE (NEGATIVE); NITRITE URINE NEGATIVE (NEGATIVE); PH URINE 5.5; PROTEIN URINE NEGATIVE (NEGATIVE); SP GRAVITY URINE 1.001; TURBIDITY URINE CLEAR (CLEAR); UR EPITHELIAL CELLS <10 /HPF (<10); URINE BACTERIA NEGATIVE /HPF; URINE RBC <10 /HPF (<10); URINE WBC <10 /HPF (<10); UROBILINOGEN URINE NORMAL (NORMAL)
[2016-11-19 10:30] LABS: AGAP 18; ALBUMIN 2.7 g/dL (3.5-5.0); ALKALINE PHOSPHATASE 141 U/L (32-104); BUN 6 mg/dL (8-22); CHLORIDE 102 mmol/L (98-107); CK PROFILE 303 U/L (24-173); COSMO 286; GOT 23 U/L (10-30); GPT 14 U/L (10-36); POTASSIUM 3.1 mmol/L (3.5-5.1); SODIUM 146 mmol/L (136-145); TCO2 26 mmol/L (25-35); TOTAL BILIRUBIN 0.26 mg/dL (0.20-1.00); TOTAL PROTEIN 5.5 g/dL (6.3-8.3)
[2016-11-19 11:00] LABS: CALCIUM 5.6 mg/dL (8.8-10.2)
[2016-11-19 11:01] LABS: MAGNESIUM 0.3 mg/dL (1.5-2.7)
[2016-11-19 11:02] LABS: UR AMPHETAMINES QUAL NONE DETECTED (NONE DETECT); UR BARBITUATES QUAL NONE DETECTED (NONE DETECT); UR BENZODIAZEPIN QUAL PRESUMPTIVE POSITIVE (NONE DETECT); UR CANNABINOIDS QUAL NONE DETECTED (NONE DETECT); UR COCAINE QUAL NONE DETECTED (NONE DETECT); UR METHADONE QUAL NONE DETECTED (NONE DETECT); UR OPIATES QUAL PRESUMPTIVE POSITIVE (NONE DETECT); UR OXYCODONE QUAL PRESUMPTIVE POSITIVE (NONE DETECT); UR PCP QUAL NONE DETECTED (NONE DETECT)
--- NOTE | 2016-11-19 11:13 | EKG Report ---
Test Performed on : 11/19/2016 08:38:46 AM Test Reason : CHEST PAIN Blood Pressure : / mmHG Vent. Rate : 082 BPM Atrial Rate : 082 BPM P-R Int : 100 ms QRS Dur : 086 ms QT Int : 386 ms P-R-T Axes : 065 -20 -34 degrees QTc Int : 450 ms Sinus rhythm. with short [place] Septal infarct (cited on or before 22-AUG-2012) Abnormal ECG When compared with ECG of 18-MAY-2016 15:20, Questionable change in initial forces of Anteroseptal leads Nonspecific T wave abnormality now evident in Inferior leads Unconfirmed Result
[2016-11-19 11:17] LABS: CK INDEX 1.9 (0.0-2.5); CK-MB 5.66 ng/mL (0.0-5.0)
[2016-11-19] MEDS ORDERED: MAGNESIUM SULFATE 2 GM/S.W.I. 2 GM/50 ML IVPB IV ONE ×2 (11:27→22:40)
[2016-11-19] MEDS ORDERED: KLOR-CON PO ONE (11:27)
--- NOTE | 2016-11-19 11:44 | PROVIDER DOCUMENTATION ---
This chart was entered by Neli Montague Scribe, acting as scribe for Joseph Garcia MD. HPI-Chest Pain - General Chief Complaint: Chest Pain Stated Complaint: CHEST PAINS Time Seen by Provider: 11/19/16 09:09 Source: patient Allergies/Adverse Reactions: Patient Allergies Allergy/AdvReac Type Severity Reaction Status Date / Time No Known Allergies Allergy Verified 08/21/16 17:33 Home Medications: Home Medication List Medication Instructions Recorded Confirmed Last Taken Type Tiotropium Gorman Inhaler 1 puff INH RTDAILY 12/10/12 08/21/16 1 Day Ago History [Spiriva] Metoprolol Succinate E.r. [Toprol 100 mg PO DAILY #30 tablet 12/28/12 08/21/16 02/05/15 Rx Xl] Alprazolam [Xanax] 1 mg PO TID 06/18/13 08/21/16 02/05/15 History Omeprazole [Prilosec] 40 mg PO BID #0 capsule. 06/21/13 08/21/16 1 Day Ago Rx Docusate Sodium [Colace] 100 mg PO DAILY #10 capsule 04/23/16 08/21/16 Unknown Rx Albuterol Sulfate [Proair 90 mcg IH TID 05/18/16 08/21/16 Unknown History Respiclick] Budesonide/Formoterol Inhaler 60 puff .SEE ORDER DAILY 05/18/16 08/21/16 Unknown History [Symbicort 160/4.5 Microgm Inhaler] Lisinopril 20 mg PO DAILY 05/18/16 08/21/16 Unknown History Mirtazapine 15 mg PO DAILY 05/18/16 08/21/16 Unknown History Potassium Chloride 10% Liquid 20 meq PO DAILY 05/18/16 08/21/16 Unknown History Hydrocodone/APAP 10 mg/325 mg 1 each PO TID 05/20/16 08/21/16 Unknown History [[place]-10] Amlodipine [Norvasc] 10 mg PO DAILY #60 tablet 08/23/16 Unknown Rx Cholecalciferol (Vit D3) [Vitamin 1,000 unit PO DAILY #60 tablet 08/23/16 Unknown Rx D3] Magnesium Oxide [Magnesium] 800 mg PO BID #60 capsule 08/23/16 Unknown Rx - History of Present Illness-CP Nature of Presenting Problem: Pt is 61 y/o F presents to the ED with chest pain. Pt states chest pain has been present for one week. Pt states chest pain radiates to left arm. Pt denies SOB. Pt states muscle aches, poor appetite, chronic diarrhea, and anxiety. Pt states hx of [place]. Pt states chest pain is gone presently. Location: reports: central Chest Pain Radiation: reports: arms (left) Quality of Pain: reports: aching Severity in ED: mild Onset/Duration: 1 week ago Timing: gone now Context/Activities at Onset: reports: light activity Modifying Factors: improves with: nothing Associated Symptoms: denies: abdominal pain, back pain, diaphoresis, dizziness, edema, fatigue, fever/chills, headache, heartburn, nausea, rash, shortness of breath, swelling/lump in chest, syncope, vomiting, weakness Nitro Today/Relief: no nitro taken today Aspirin Treatment Today: no aspirin today Similar Symptoms Previously?: Yes (present for one week ) Recently Seen Here or By Another Healthcare Provider: No Review of Systems - Adult - REVIEW OF SYSTEMS - ADULT Constitutional: denies: chills, fever Eyes: denies: decreased vision, blurred vision, double vision Ears, Nose, Mouth & Throat: denies: ear pain, nose pain, throat pain Cardiovascular: reports: chest pain. denies: heart murmur, irregular heart rate Respiratory: denies: cough, shortness of breath, wheezing Gastrointestinal: reports: diarrhea (chronic), poor appetite. denies: abdominal pain, nausea, vomiting Genitourinary: denies: dysuria, flank pain, hematuria Musculoskeletal: reports: muscle aches. denies: back pain, joint pain, muscle weakness, neck pain Integumentary: denies: hives, itching, rash Neurological: denies: dizziness/vertigo, headache/migraines, numbness, seizure, syncope Psychiatric: reports: anxiety. denies: depression, suicidal thoughts Endocrine: reports: no symptoms reported Hematologic/Lymphatic: reports: no symptoms reported Allergic/Immunologic: reports: no symptoms reported All Other Systems: Reviewed and Negative Past History - Adult - PAST MEDICAL HISTORY-ADULT Review of Records: reports: Nursing Assessment Review, Medications Reviewed, Social history reviewed & non-contributory. Major Childhood Illnesses: reports: denies history Cardiovascular: reports: CAD, HTN, [place] Respiratory: reports: asthma, COPD Gastrointestinal: reports: GERD, IBS, other (obstruction) Obstetrical/Gynecological: reports: other (cervical ca) Genitourinary: reports: denies history Musculoskeletal: reports: denies history Neurological: reports: denies history Psychiatric: reports: anxiety, depression Endocrine/Immune: reports: thyroid disorder Other Conditions: reports: denies history - PRIOR SURGERIES/PROCEDURES Surgical/Procedure History: reports: bowel surgery, other, appendectomy, cardiac stent - PRIOR HOSPITALIZATIONS Prior Hospitalizations: reports: for similar symptoms - IMMUNIZATION STATUS Childhood Immunizations: See Nurse Assessment Flu Vaccine: See Nurse Assessment - FAMILY HISTORY Family History: reviewed, not pertinent - SOCIAL HISTORY Smoking: cigarettes, greater than 1 pack/day Provider spent 3-5 mins advising pt. on dangers of tobacco.: Discussed manners to quit use, and f/u contacts for add'l counseling. Substance Use: denies Living Situation: family Physical Exam-General - PHYSICAL EXAM-ADULT Initial Vital Signs Reviewed: Yes - CONSTITUTIONAL General Appearance: alert, no apparent distress, thin. negative: lethargic, slow to respond - EYES Eyes: PERRL/EOMI, pale conjunctivae. negative: sunken eyes - HEAD, EARS, NOSE, MOUTH & THROAT HENMT: normocephalic/atraumatic, other (dry mucous membranes). negative: moist mucous membranes, angioedema - NECK Neck: normal inspection. negative: lymphadenopathy, tender lateral - RESPIRATORY Respiratory: chest non-tender, lungs clear, normal breath sounds. negative: crackles, rhonchi, stridor - CARDIOVASCULAR Cardiovascular: regular rate, rhythm. negative: tachycardia, systolic murmur - GASTROINTESTINAL (ABDOMEN) Abdominal Exam: normal bowel sounds, non tender, soft. negative: guarding, rebound, hernia - LYMPHATIC Lymphatic: no adenopathy. negative: enlargement, streaking - MUSCULOSKELETAL Back Exam: normal inspection, no vertebral tenderness. negative: ecchymosis, muscle spasm Extremity: normal range of motion, normal inspection. negative: deformity, swelling, tenderness - SKIN Integumentary: normal turgor, warm/dry, pallor. negative: ecchymosis, erythema , rash - NEUROLOGIC Neurologic: grossly normal. negative: aphasia, facial droop - PSYCHIATRIC Psych/Mental Status: normal mood/affect, oriented x 3. negative: paranoid, tearful Progress - PLAN OF CARE/RESULTS Progress/Plan/Lab Results: Vital Signs - 8 hr 11/19/16 08:36 11/19/16 09:00 11/19/16 10:18 Temperature 98.3 F Pulse Rate 80 81 77 Respiratory Rate 18 15 22 Blood Pressure 164/101 171/107 161/97 O2 Sat by Pulse Oximetry 100 96 98 Laboratory Results - last 24 hr 11/19/16 11/19/16 11/19/16 09:05 09:05 09:05 WBC 5.21 RBC 4.61 Hgb 14.4 Hct 41.7 MCV 90.5 MCH 31.2 H MCHC 34.5 RDW Std Deviation 14.9 H Plt Count 237 MPV 12.1 H Immature Gran % (Auto) 0.0 Neut % (Auto) 71.9 Lymph % (Auto) 19.2 L [place] % (Auto) 7.5 Eos % (Auto) 0.8 Baso % (Auto) 0.6 Immature Gran # (Auto) 0.00 Neut # (Auto) 3.75 Lymph # (Auto) 1.00 L [place] # (Auto) 0.39 Eos # (Auto) 0.04 Baso # (Auto) 0.03 PT INR PTT (Actin FS) D-Dimer 1.03 H Sodium 146 H Potassium 3.1 L Chloride 102 Carbon Dioxide 26 Anion Gap 18 BUN 6 L Creatinine 0.7 Estimated GFR/1.73 m2 > 60 BUN/Creatinine Ratio 9 Glucose 64 L Calculated Osmolality 286 Calcium 5.6 L* Magnesium 0.3 L* Total Bilirubin 0.26 AST 23 ALT 14 Alkaline Phosphatase 141 H Creatine Kinase 303 H Creatine Kinase Index 1.9 CK-MB (CK-2) 5.66 H Troponin T [id number] Pept Total Protein 5.5 L Albumin 2.7 L Globulin 2.8 Albumin/Globulin Ratio 1.0 Urine Source Urine Color Urine Turbidity Urine pH Ur Specific [place] Urine Protein Ur Glucose (Stick) Ur Ketones (Stick) Urine Blood Urine Nitrite Urine Bilirubin Urobilinogen Dipstick Urine Leukocytes Urine WBC (Auto) Urine RBC (Auto) U Epithel Cells (Auto) Urine Bacteria (Auto) Urine Opiates Screen Ur Oxycodone Screen Ur Methadone, Qual Ur Barbiturates Screen Ur Phencyclidine Scrn Ur Amphetamines Screen U Benzodiazepines Scrn Urine Cocaine Screen U Cannabinoids Screen 11/19/16 11/19/16 11/19/16 09:05 09:05 09:05 WBC RBC Hgb Hct MCV MCH MCHC RDW Std Deviation Plt Count MPV Immature Gran % (Auto) Neut % (Auto) Lymph % (Auto) [place] % (Auto) Eos % (Auto) Baso % (Auto) Immature Gran # (Auto) Neut # (Auto) Lymph # (Auto) [place] # (Auto) Eos # (Auto) Baso # (Auto) PT 11.4 INR 1.08 PTT (Actin FS) 28.4 D-Dimer Sodium Potassium Chloride Carbon Dioxide Anion Gap BUN Creatinine Estimated GFR/1.73 m2 BUN/Creatinine Ratio Glucose Calculated Osmolality Calcium Magnesium Total Bilirubin AST ALT Alkaline Phosphatase Creatine Kinase Creatine Kinase Index CK-MB (CK-2) Troponin T 0.010 [id number]-M-Rgbksdnbcnx Pept 2083 H Total Protein Albumin Globulin Albumin/Globulin Ratio Urine Source Urine Color Urine Turbidity Urine pH Ur Specific [place] Urine Protein Ur Glucose (Stick) Ur Ketones (Stick) Urine Blood Urine Nitrite Urine Bilirubin Urobilinogen Dipstick Urine Leukocytes Urine WBC (Auto) Urine RBC (Auto) U Epithel Cells (Auto) Urine Bacteria (Auto) Urine Opiates Screen Ur Oxycodone Screen Ur Methadone, Qual Ur Barbiturates Screen Ur Phencyclidine Scrn Ur Amphetamines Screen U Benzodiazepines Scrn Urine Cocaine Screen U Cannabinoids Screen 11/19/16 11/19/16 10:05 10:05 WBC RBC Hgb Hct MCV MCH MCHC RDW Std Deviation Plt Count MPV Immature Gran % (Auto) Neut % (Auto) Lymph % (Auto) [place] % (Auto) Eos % (Auto) Baso % (Auto) Immature Gran # (Auto) Neut # (Auto) Lymph # (Auto) [place] # (Auto) Eos # (Auto) Baso # (Auto) PT INR PTT (Actin FS) D-Dimer Sodium Potassium Chloride Carbon Dioxide Anion Gap BUN Creatinine Estimated GFR/1.73 m2 BUN/Creatinine Ratio Glucose Calculated Osmolality Calcium Magnesium Total Bilirubin AST ALT Alkaline Phosphatase Creatine Kinase Creatine Kinase Index CK-MB (CK-2) Troponin T Mwy-[id number]-Kbwewcocsjq Pept Total Protein Albumin Globulin Albumin/Globulin Ratio Urine Source CLEAN CATCH Urine Color YELLOW Urine Turbidity CLEAR Urine pH 5.5 Ur Specific [place] 1.001 Urine Protein NEGATIVE Ur Glucose (Stick) NEGATIVE Ur Ketones (Stick) NEGATIVE Urine Blood NEGATIVE Urine Nitrite NEGATIVE Urine Bilirubin NEGATIVE Urobilinogen Dipstick NORMAL Urine Leukocytes NEGATIVE Urine WBC (Auto) <10 Urine RBC (Auto) <10 U Epithel Cells (Auto) <10 Urine Bacteria (Auto) NEGATIVE Urine Opiates Screen PRESUMPTIVE POSITIVE A Ur Oxycodone Screen PRESUMPTIVE POSITIVE A Ur Methadone, Qual NONE DETECTED Ur Barbiturates Screen NONE DETECTED Ur Phencyclidine Scrn NONE DETECTED Ur Amphetamines Screen NONE DETECTED U Benzodiazepines Scrn PRESUMPTIVE POSITIVE A Urine Cocaine Screen NONE DETECTED U Cannabinoids Screen NONE DETECTED Orders Category Date Time Status Cardiac Monitoring DIRECTED Care 11/19/16 09:36 Active Saline Loc NOW Care 11/19/16 09:36 Active CHEST-2 VIEWS [RAD] Stat Exams 11/19/16 09:36 Completed CBC WITH ELECTRONIC DIFF [HEME] Stat Lab 11/19/16 09:05 Completed CK PROFILE [SP CHEM] Stat Lab 11/19/16 09:05 Completed COMPREHENSIVE METABOLIC PANEL [CHEM] Stat Lab 11/19/16 09:05 Completed D-DIMER [CHEM] Stat Lab 11/19/16 09:05 Completed MAGNESIUM [CHEM] Stat Lab 11/19/16 09:05 Completed PRO B-NATRIURETIC PEPTIDE Stat Lab 11/19/16 09:05 Completed PROTIME WITH INR [COAG] Stat Lab 11/19/16 09:05 Completed PTT [COAG] Stat Lab 11/19/16 09:05 Completed TROPONIN T Stat Lab 11/19/16 09:05 Completed URINALYSIS W/POSS RFLX CULT-1 [URINALYSIS] Stat Lab 11/19/16 10:05 Completed URINE DRUG SCREEN Stat Lab 11/19/16 10:05 Completed 0.9% Sodium Chloride Inj [Ns] 1,000 ml Med 11/19/16 09:36 Discontinued IV 999 mls/hr Aspirin Med 11/19/16 09:36 Discontinued 325 mg PO STAT STA EKG [EKG] Stat Ther 11/19/16 09:36 Draft Result Diagrams: 11/19/16 09:05 11/19/16 09:05 - EKG 1 Time of EKG reading by physician:: 08:38 EKG Read and Signed by:: Syeda Garcia EKG Interpretation (*Must complete 3 of following elements*): Abnormal Rate: 82 Rhythm: sinus rhythm with short NM Comments: abnormal ECG - XRAY 1 XRAY Study: Chest Impression: Abnormal XRAY Interpretation: emphysema - CONSULTS/PCP/HOSPITALIST Notification #1 *Consult/PCP/Hospitalist*: EDWARD Silva for Hospitalist Time Discussed: 11:35 (Dr. Daigle accepted Pt ) Reason/Comments: Dr. Garcia consults with EDWARD Silva about Pt. Departure - Departure Date of Disposition Decision: 11/19/16 Time of Disposition Decision: 11:34 DIAGNOSIS: Hypomagnesemia, Hypocalcemia Disposition: ADMITTED INPATIENT 09 Certified Medical Emergency: Emergent Condition: Stable Referrals and Follow-Ups: Ricco Sepulveda MD [Primary Care Provider] - - Critical Care Note This patient required my direct & personal management of CC.: Yes Total Time (mins): 30 Critical Care Statement: This patient required my direct personal management to treat or rule out processes, the absence of which, could potentiallly result in sudden, clinically significant life or limb threatening deterioration. Attestation - Physician/ SABRINA Attestation The physician spent face to face time with patient:: Yes Advanced Practice Provider documentation review:: Supervising physician onsite and consulted in the evaluation and care of this patient. The physician did have a face to face encounter with the patient. This chart was documented by the indicated scribe, (Neli Montague Scribe) and accurately reflects the services I performed and decisions made by me, Syeda Garcia MD, as attested by the provider's signature.
[2016-11-19] MEDS ORDERED: CALCIUM GLUCONATE 1 GM in NS 50 ML IV ONE (12:00)
[2016-11-19] MEDS ORDERED: ZOFRAN IV ONE (12:45)
[2016-11-19] MEDS ORDERED: MORPHINE IV ONE ×2 (12:45→22:42)
--- NOTE | 2016-11-19 14:22 | Diag Imaging Result Doc PS360 ---
EXAM: CT ANGIOGRM/PULMONARY ARTERIES HISTORY: cp/pe rule out TECHNIQUE: CT of the chest with pulmonary artery protocol and 3-D MIPS with intravenous contrast and dose reduction (clarity.) COMMENT: There are no filling defects in the pulmonary arteries. There is no evidence of aortic aneurysm or dissection. There are extensive coronary calcifications. No abnormal fluid collections are present. There is a massive cyst in the liver measuring 11 cm in diameter. This is actually slightly smaller than on the previous study of 05/19/2016 at which time it was 12 cm in diameter. The atelectasis or pneumonia which was present in the lower lung arevalo particularly the left lower lobe but the time the previous study has improved considerably. Some residual atelectasis is present in the posterior costophrenic sulcus of the right lower lobe. There is COPD. The regional skeleton is stable in appearance. IMPRESSION: Improved bibasilar atelectasis versus pneumonia. No evidence of pulmonary emboli. Liver cyst. Electronically signed by Beka Torres 11/19/2016 2:20 PM
--- NOTE | 2016-11-19 15:11 | HISTORY AND PHYSICAL ---
CHIEF COMPLAINT: Weakness and chest pain. HISTORY OF PRESENT ILLNESS: Mrs. Paula is a 61-year-old female, well known to our service. She has a history of short gut syndrome, nicotine dependence, COPD, hypertension, who presents to the ER with a few days of worsening tremors in her hands, overall weakness, and occasional chest pain. She reports that she had worsening of her diarrhea around symptom onset. She reports occasional chest pain with exertion and also when she swallows. Symptoms progressed to the point where she had to come to the ER for evaluation. She denies any loss of consciousness or unilateral weakness. There has been no overt numbness in any of her extremities or face. She came to the ER for evaluation. In the ER, she had labs done which revealed profound electrolyte abnormalities of hypomagnesemia, hypocalcemia, and hypokalemia. These are being replaced. Chest x-ray was done, which did not show anything acute. She denies any abdominal pain but has reported her usual diarrhea with her short gut syndrome, and she is on chronic replacement for that. We are going to admit her for observation status. PAST MEDICAL HISTORY: 1. Hypertension. 2. COPD. 3. Nicotine dependence. 4. Short gut syndrome. 5. History of gynecologic cancer. SURGICAL HISTORY: Multiple abdominal surgeries. SOCIAL HISTORY: Patient smokes a pack a day. Denies alcohol or illicit drug use. ALLERGIES: No known drug allergies. HOME MEDICATIONS: 1. ProAir RespiClick 90 mcg inhaled t.i.d. 2. Xanax 1 mg t.i.d. 3. Norvasc 10 mg daily. 4. Budesonide formoterol inhaled as directed. 5. Vitamin D3 1000 units p.o. daily. 6. Colace 100 mg daily. 7. [place] 10 one t.i.d. 8. Lisinopril 20 mg daily. 9. Mag-Ox 800 mg b.i.d. 10. Toprol-XL 100 mg p.o. daily. 11. Mirtazapine 15 mg p.o. daily. 12. Prilosec 40 mg b.i.d. 13. Potassium chloride 10% liquid 20 mEq p.o. daily. 14. Spiriva 1 puff daily. REVIEW OF SYSTEMS: Fourteen-point review of systems obtained and found to be negative with the exception of the HPI. PHYSICAL EXAMINATION: VITAL SIGNS: Blood pressure is 137/90, heart rate 69, respiratory rate 20, O2 saturation 96% on room air. Temperature is 98.3 degrees. GENERAL: This is a frail, bordering on cachectic appearing, 61-year-old female lying in the hospital bed in no acute distress. NEUROLOGIC: The patient is awake and alert, follows commands. Exam is nonfocal. HEENT: Head is atraumatic, normocephalic. Pupils equal, round, reactive to light. Oral mucosa is moist. Trachea is midline. Chest clear to auscultation bilaterally. Diminished at the bases. CV: Regular rate and rhythm. S1-S2 is noted. No murmurs. GI: Soft, nondistended, nontender. Bowel sounds positive. EXTREMITIES: No edema, clubbing, or cyanosis. Pulses 1+ bilaterally. DIAGNOSTIC DATA: Chest x-ray shows COPD. No acute changes. EKG: Sinus rhythm. Nonspecific ST and T changes which is unchanged from previous. Pulmonary arteriogram shows improved basilar atelectasis versus pneumonia. No evidence of pulmonary emboli. Liver cyst. WBC is 5.21, hemoglobin 14.4, hematocrit 41.7, platelet count is 237,000. PT 11.4, INR 1.0. D- Dimer 1.03. Sodium 146. Potassium 3.1. Chloride 102. CO2 of 26. Anion gap 18. BUN 6, creatinine 0.7, glucose is 64, calcium 5.6, phosphorus 4.8, magnesium 0.3. T bilirubin 0.26. AST 23, ALT 14. Alkaline phosphatase 141. CK 303, CK-MB 5.66. Troponin negative. Pro B 2083. Albumin 2.7. Tox screen is positive for opiates, oxycodone, and benzodiazepines. ASSESSMENT AND PLAN: 1. Profound electrolyte abnormalities: This is secondary to diarrhea which is ultimately secondary to her short gut syndrome. We will continue with electrolyte repletion, recheck labs later this evening and again tomorrow. If everything is replaced and she is feeling better, we should likely be able to send her home tomorrow. 2. Chest pain: CTA is negative for PE. We will continue to trend her enzymes as her CK and CK- MB are elevated with a negative troponin. She had multiple cardiac examinations in the past few months. So, for now, we will just trend her enzymes. 3. Short gut syndrome: Continue her home medications. 4. Chronic obstructive pulmonary disease. This is stable. She is not in exacerbation. We will continue her home medications. 5. Deep vein thrombosis prophylaxis. Will be provided with Lovenox. 6. Nicotine dependence: Patient has been highly advised to quit smoking. We will write a nicotine patch. I have personally performed a face to face diagnostic evaluation on this patient , also I reviewed this patient lab work and, images and vital signs, As per the patient she has been on TPN before but it was removed secondary to infection, she is having some tremors and has per the patient this is not normal , I don't this this chest pain is related with a cardiac like problem, I agree with the assessment and plan, Dr Prosper Westfall Dictated by EDWARD Scott for Prosper Noel MD cc: EDWARD Scott MD MTDD
[2016-11-19 18:34] LABS: CK-MB 5.67 ng/mL (0.0-5.0)
[2016-11-19] MEDS: NICODERM PATCH TD SCH (20:56)
[2016-11-19] MEDS: MAG-OX PO SCH (20:57)
[2016-11-19] MEDS: NS 1,000 ML IV SCH (20:57)
[2016-11-19] MEDS: NORCO-10 PO SCH (20:58)
[2016-11-19] MEDS: PRILOSEC PO SCH (20:59)
[2016-11-19] MEDS: XANAX PO SCH (20:59)
[2016-11-19 21:17] LABS: AGAP 13; BUN 7 mg/dL (8-22); CALCIUM 6.2 mg/dL (8.8-10.2); CHLORIDE 105 mmol/L (98-107); COSMO 281; POTASSIUM 3.7 mmol/L (3.5-5.1); SODIUM 142 mmol/L (136-145); TCO2 24 mmol/L (25-35)
[2016-11-19 23:41] LABS: CK-MB 5.36 ng/mL (0.0-5.0)
[2016-11-20] MEDS ORDERED: LABETALOL IV ONE (00:15)
[2016-11-20 07:05] LABS: HEMATOCRIT 33.1 % (37.0-47.0); HEMOGLOBIN 10.9 g/dL (12.0-16.0); MCH 31.2 PG (27-31); MCHC 32.9 g/dL (33-37); MCV 94.8 FL (81-99); MPV 11.5 FL (7.4-10.4); RBC 3.49 XMIL (4.2-5.4)
[2016-11-20] MEDS: VENTOLIN HFA INH PRN (07:58)
[2016-11-20] MEDS: SPIRIVA INH SCH (07:59)
[2016-11-20] MEDS: SYMBICORT 160/4.5 MICROGM INHALER INH SCH ×2 (07:59→19:21)
[2016-11-20 08:13] LABS: AGAP 16; BUN 6 mg/dL (8-22); CALCIUM 6.3 mg/dL (8.8-10.2); CHLORIDE 105 mmol/L (98-107); COSMO 282; MAGNESIUM 1.8 mg/dL (1.5-2.7); POTASSIUM 3.6 mmol/L (3.5-5.1); SODIUM 142 mmol/L (136-145); TCO2 21 mmol/L (25-35)
[2016-11-20] MEDS: REMERON PO SCH (09:14)
[2016-11-20] MEDS: PRINIVIL PO SCH (09:14)
[2016-11-20] MEDS: VITAMIN D PO SCH (09:14)
[2016-11-20] MEDS: NICODERM PATCH TD SCH (09:14)
[2016-11-20] MEDS: POTASSIUM CHLORIDE 10% LIQUID PO SCH (09:14)
[2016-11-20] MEDS: XANAX PO SCH ×3 (09:15→21:23)
[2016-11-20] MEDS: COLACE PO SCH (09:15)
[2016-11-20] MEDS: MAG-OX PO SCH ×2 (09:15→21:23)
[2016-11-20] MEDS: TOPROL XL PO SCH (09:15)
[2016-11-20] MEDS: NORVASC PO SCH (09:15)
[2016-11-20] MEDS: PRILOSEC PO SCH ×2 (09:15→21:22)
[2016-11-20] MEDS: LOVENOX SUBQ SCH (09:16)
[2016-11-20] MEDS: NORCO-10 PO SCH ×3 (09:16→21:23)
[2016-11-20] MEDS ORDERED: CALCIUM GLUCONATE 4.65 MEQ in NS 50 ML IV ONE ×2 (12:00→16:30)
--- NOTE | 2016-11-20 13:44 | PROGRESS NOTE ---
DATE: 11/20/2016 SUBJECTIVE: This patient states that she is feeling much better. She is tolerating p.o. but she still has weakness and shakiness. Her doctor is Dr. Diamond from Gastroenterology Department. She is asking me that she would like to have had a second opinion but she told me that she wants to get that as an outpatient. She has short gut syndrome and initially she was on TPN but not anymore because of infections. It looks like she is taking multivitamins and also she is taking electrolytes at home. She did not bring her medications but she will try to get it today and we will discuss them again. OBJECTIVE: Vital Signs: Temperature 97.9 degrees, pulse 82, respiratory rate 18, blood pressure 152/99, O2 saturation 97% on room air. General: Chronically ill female patient in no acute distress. HEENT: Head normocephalic. No trauma. PERRLA. Neck: Supple. No JVD. No masses. Central trachea. Chest: Clear to auscultation. No wheezing. No rales. Abdomen: Soft, mild tenderness to palpation at the level of the epigastric and periumbilical area. Extremities: No edema. No clubbing. No cyanosis. Decreased muscle mass. Neurological: The patient is alert and oriented x3. She has some mild tremors at the level of the upper extremities. LABORATORY: WBC 4.4, hemoglobin 10.9, hematocrit 33.1, platelet 190,000. Sodium 142, potassium 3.6, chloride 105, bicarbonate 21, BUN 6, creatinine 0.6, glucose 114, calcium 6.3, magnesium 1.8. ASSESSMENT AND PLAN: 1. Electrolytes imbalance, mostly magnesium and calcium. Magnesium is stable at this moment and she is having hypocalcemia. I will replace the calcium again and I will monitor this for 1 more day. 2. Chest pain. CT angiogram is negative for pulmonary embolism. Negative troponins. She is not complaining of chest pain at this moment. 3. Short gut syndrome. Continue with home medications. Dr. Diamond from GI is taking care of this patient but apparently she wants to get a second opinion as an outpatient. 4. COPD, stable, not in exacerbation. 5. Deep vein thrombosis prophylaxis. Continue with Lovenox. 6. Nicotine dependence. This patient has been highly advised to quit smoking. Continue with nicotine patch and I will continue with daily cessation education. cc: Prosper Noel MD
[2016-11-20 15:36] LABS: AGAP 9; ALBUMIN 2.5 g/dL (3.5-5.0); ALKALINE PHOSPHATASE 128 U/L (32-104); BUN 6 mg/dL (8-22); CALCIUM 6.7 mg/dL (8.8-10.2); CHLORIDE 102 mmol/L (98-107); COSMO 269; GOT 22 U/L (10-30); GPT 13 U/L (10-36); POTASSIUM 3.7 mmol/L (3.5-5.1); SODIUM 136 mmol/L (136-145); TCO2 25 mmol/L (25-35); TOTAL BILIRUBIN 0.29 mg/dL (0.20-1.00); TOTAL PROTEIN 4.8 g/dL (6.3-8.3)
[2016-11-20] MEDS: NS 1,000 ML IV SCH ×2 (21:24→22:22)
[2016-11-21 06:31] LABS: MANUAL DIFF NEEDED? NO
[2016-11-21 06:47] LABS: BASO% 0.5 % (0.0-0.8); EOS# 0.09 X1000 (0.0-0.7); EOS% 2.2 % (0.0-10.0); HEMATOCRIT 39.6 % (37.0-47.0); HEMOGLOBIN 13.1 g/dL (12.0-16.0); LYMPH# 0.81 X1000 (1.2-3.4); LYMPH% 19.7 % (20.5-51.1); MCHC 33.1 g/dL (33-37); MCV 93.8 FL (81-99); MONO# 0.33 X1000 (0.11-0.59); MPV 11.6 FL (7.4-10.4); NEUT% 69.6 % (42.2-75.2); PLT 230 X1000 (130-400); RBC 4.22 XMIL (4.2-5.4)
[2016-11-21 07:06] LABS: AGAP 13; ALBUMIN 2.5 g/dL (3.5-5.0); ALKALINE PHOSPHATASE 153 U/L (32-104); BUN 11 mg/dL (8-22); CALCIUM 7.3 mg/dL (8.8-10.2); CHLORIDE 106 mmol/L (98-107); COSMO 284; GOT 22 U/L (10-30); GPT 13 U/L (10-36); POTASSIUM 4.6 mmol/L (3.5-5.1); SODIUM 143 mmol/L (136-145); TCO2 24 mmol/L (25-35); TOTAL BILIRUBIN 0.41 mg/dL (0.20-1.00); TOTAL PROTEIN 5.3 g/dL (6.3-8.3)
[2016-11-21 07:46] VITALS: BP 173/97
[2016-11-21] MEDS ORDERED: MAGNESIUM SULFATE 2 GM/S.W.I. 2 GM/50 ML IVPB IV ONE (08:21)
[2016-11-21] MEDS: PRILOSEC PO SCH (08:28)
[2016-11-21] MEDS: REMERON PO SCH (08:28)
[2016-11-21] MEDS: MAG-OX PO SCH (08:28)
[2016-11-21] MEDS: LOVENOX SUBQ SCH (08:29)
[2016-11-21] MEDS: XANAX PO SCH (08:29)
[2016-11-21] MEDS: PRINIVIL PO SCH (08:29)
[2016-11-21] MEDS: VITAMIN D PO SCH (08:29)
[2016-11-21] MEDS: NORCO-10 PO SCH (08:30)
[2016-11-21] MEDS: NICODERM PATCH TD SCH (08:30)
[2016-11-21] MEDS: NORVASC PO SCH (08:30)
[2016-11-21] MEDS: COLACE PO SCH (08:35)
[2016-11-21] MEDS: POTASSIUM CHLORIDE 10% LIQUID PO SCH (08:43)
[2016-11-21] MEDS: TOPROL XL PO SCH (10:31)
[2016-11-21] MEDS: SPIRIVA INH SCH (11:28)
[2016-11-21] MEDS: SYMBICORT 160/4.5 MICROGM INHALER INH SCH (11:28)
[2016-11-21] MEDS: VENTOLIN HFA INH PRN (11:29)
--- NOTE | 2016-11-22 08:47 | DISCHARGE SUMMARY ---
ADMISSION DATE: 11/19/2016 DISCHARGE DATE: 11/21/2016 CONSULTATIONS: None. PERTINENT PROCEDURES: 1. Pulmonary arteriogram showed improved basilar atelectasis versus pneumonia. 2. No evidence of pulmonary emboli, liver cysts. DISCHARGE DIAGNOSES: 1. Electrolyte imbalance, mostly magnesium and calcium, resolved. 2. Chest pain. CT angiogram negative for pulmonary embolus, negative troponins. Chest pain has resolved. The patient is stable. 3. Short gut syndrome. Continue home medications. She is followed by Dr. Diamond, but is seeking a second opinion on an outpatient basis. 4. Chronic obstructive pulmonary disease, stable, not in exacerbation. 5. Nicotine dependence. The patient has been educated daily on smoking cessation and the need to quit. HOSPITAL COURSE: Ms. Paula is a 61-year-old female, well known to our service for history of short gut syndrome, nicotine dependence, COPD, hypertension, who presented to the ED with a few days worsening tremors in her hands, overall weakness, occasional chest pains. Reported worsening of her diarrhea around symptom onset. She reports occasional chest pain with exertion and also when she swallows. Symptoms progressed to the point where she had to come to the ED for evaluation. Labs done in the ED revealed profound electrolyte abnormalities of hypo magnesium, hypocalcemia and hypokalemia; those were being replenished. Chest x- ray was done that did not show anything acute. CTA was also negative for any PE. Her electrolyte imbalances have all been replenished; they are all back to normal. She is feeling much better. Tolerating p.o. She will seek a second opinion for her short gut syndrome on an outpatient basis. VITAL SIGNS: At time of discharge, temperature is 97.6 degrees, heart rate 88, respirations 18, blood pressure 173/97, O2 is 98% on room air. DISCHARGE DIET: Healthy heart. DISCHARGE MEDICATIONS: 1. ProAir 90 mcg inhaled t.i.d. 2. Xanax 1 mg p.o. t.i.d. 3. Symbicort 160/4.5 mcg inhaler, inhaled daily. 4. Vitamin D 3000 units p.o. daily. 5. Colace 100 mg p.o. daily. 6. [place] 10 1 each p.o. t.i.d. 7. Lisinopril 20 mg p.o. daily. 8. Magnesium 800 mg p.o. b.i.d. 9. Toprol-XL 100 mg p.o. daily. 10. Prilosec 40 mg p.o. b.i.d. 11. Potassium chloride 20 mEq p.o. daily. 12. Spiriva 1 puff inhaled RT daily. 13. Mirtazapine 15 mg p.o. daily. FOLLOWUP: Ms. Paula is being discharged home. She is to follow with her primary care physician, Dr. Ricco Sepulveda, in 1 week. Continue to take all her medications as prescribed. Can return to the ED for any worsening of symptoms. I personally performed a face to face evaluation on this patient, also I review laboratory work and images, She has electrolyte imbalance secondary to short gut syndrome, she has been on TPN before but it was removed for multiples infections, I will treat her, upon discharge she will see doctor Diamond as well, Prosper Westfall MD. Dictated by EDWARD Benítez for Prosper Noel MD cc: MD Ricco Damico MD [facility]
== END 2016-11-21 11:38 | disposition home or self-care (01) ==
LOC: ED 08:34 → INTOOBSV 14:22 → EDIPHOLD 14:22 → 3N 22:14
PROVIDERS: ATTEND Internal Medicine

== ENCOUNTER 2019-03-01 10:56 | Inpatient (IN) ==
[2019-03-01] MEDS ORDERED: NS 1,000 ML IV ONE ×2 (11:07→14:50)
[2019-03-01] MEDS ORDERED: ZOFRAN IV ONE (11:07)
--- NOTE | 2019-03-01 11:09 | PROVIDER DOCUMENTATION ---
HPI-Screening - General Chief Complaint: N/V/D Stated Complaint: VOMITING,DIARRHEA Time Seen by Provider: 03/01/19 11:06 Source: patient Allergies/Adverse Reactions: Allergies Allergy/AdvReac Type Severity Reaction Status Date / Time No Known Allergies Allergy Verified 09/16/18 17:39 Home Medications: Home Medication List Medication Instructions Recorded Confirmed Last Taken Type Metoprolol Succinate E.r. [Toprol 100 mg PO DAILY #30 tablet 12/28/12 09/16/18 06/02/17 08:00 Rx Xl] Alprazolam [Xanax] 1 mg PO TID 06/18/13 09/16/18 09/20/18 07:30 History Lisinopril 20 mg PO DAILY 05/18/16 09/16/18 09/20/18 07:30 History Cholecalciferol (Vit D3) [Vitamin 1,000 unit PO DAILY #60 tablet 08/23/16 09/16/18 09/19/18 21:00 Rx D3] Magnesium Oxide [Magnesium] 800 mg PO BID #60 capsule 08/23/16 09/16/18 09/19/18 21:00 Rx Albuterol Sulfate [Albuterol 8.5 gm IH Q4-6H PRN PRN #2 06/02/17 09/16/18 09/20/18 07:30 Rx Sulfate Hfa] [email or web address] Omeprazole [Prilosec] 20 mg PO BID 06/02/17 09/16/18 09/19/18 21:00 History Albuterol Sulfate [Proair Hfa] 8.5 gm INH TID PRN 09/16/18 09/16/18 09/19/18 21:00 History Aspirin 81 mg PO DAILY 09/16/18 09/16/18 09/19/18 21:00 History Patient arrived via EMS?: No HPI: Pt. is 63 yof that presents with c/o N/V/D for 2 weeks. She reports being very weak and that she almost passes out when standing. Pt. reports a Hx of C-diff. Physical Exam-Screening - CONSTITUTIONAL General Appearance: alert, moderate distress, thin. negative: anxious, obtunded, combative - HEAD, EARS, NOSE, MOUTH & THROAT HENMT: normocephalic/atraumatic - RESPIRATORY Respiratory: lungs clear, normal breath sounds - GASTROINTESTINAL (ABDOMEN) Abdominal Exam: abnormal bowel sounds (hypoactive). negative: rigid, hernia, mass - SKIN Integumentary: pallor. negative: cyanosis, erythema, tenderness - NEUROLOGIC Neurologic: grossly normal, no motor/sensory deficits - PSYCHIATRIC Psych/Mental Status: normal mood/affect, normal thought content, normal thought process, oriented x 3. negative: anxious, paranoid, tearful Screening Depart - Departure ED Screening Disposition: Continued in ED for Treatment Date of Disposition Decision: 03/01/19 Time of Disposition Decision: 11:08 DIAGNOSIS: Generalized weakness Nausea & vomiting Qualifiers: Vomiting type: unspecified Vomiting Intractability: unspecified Qualified Code(s): R11.2 - Nausea with vomiting, unspecified Disposition: STILL A PATIENT 30 Certified Medical Emergency: Emergent Condition: Stable Referrals and Follow-Ups: Ricco Sepulveda MD [Primary Care Provider] - Attestation - Physician/ SABRINA Attestation Patient care was provided by Advanced Practice Provider:: Yes Advanced Practice Provider:: Martínez King Advanced Practice Provider documentation review:: The Mid-level provider documentation, treatment plan and medical decision making was reviewed by the physician who agrees with all treatment and medical decision making by the P. The physician spent face to face time with patient:: No Advanced Practice Provider documentation review:: Supervising physician onsite and consulted in the evaluation and care of this patient. The physician did not have a face to face encounter with the patient.
[2019-03-01 11:31] LABS: BASO# 0.01 X1000 (0.0-0.2); BASO% 0.1 % (0.0-0.8); EOS# 0.07 X1000 (0.0-0.7); HEMATOCRIT 37.8 % (37.0-47.0); HEMOGLOBIN 12.9 g/dL (12.0-16.0); LYMPH# 0.91 X1000 (1.2-3.4); LYMPH% 13.3 % (20.5-51.1); MCH 30.3 PG (27-31); MCHC 34.1 g/dL (33-37); MCV 88.7 FL (81-99); MONO% 7.3 % (1.7-9.3); MPV 11.3 FL (7.4-10.4); NEUT# 5.37 X1000 (1.4-6.5); NEUT% 78.3 % (42.2-75.2); PLT 228 X1000 (130-400); RBC 4.26 XMIL (4.2-5.4); RDW 14.9 % (11.5-14.5); WBC 6.86 X1000 (4.8-10.8)
--- NOTE | 2019-03-01 11:38 | Diag Imaging Result Doc PS360 ---
FLAT/UPRIGHT ABD/1 VIEW CHEST - 03/01/2019 INDICATION: abd pain TECHNIQUE: COMPARISON: 07/26/2018, 12/26/2017 FINDINGS: Stable expansile area of the lateral posterior left rib. Stable advanced COPD with hyperexpanded lungs. There is some linear atelectasis in the right midlung. There is a calcified granuloma in the left lung base. Heart size is borderline. No infiltrates or edema. Stable surgical suture lines at the inferior pelvis. Bowels are moderately hyperinflated with gas, nonspecific. IMPRESSION: Nonspecific findings. Electronically signed by Lon Arevalo 03/01/2019 11:36 AM
[2019-03-01 11:52] LABS: AGAP 12; ALBUMIN 2.4 g/dL (3.5-5.0); ALKALINE PHOSPHATASE 135 U/L (32-104); BUN 6 mg/dL (8-22); CHLORIDE 97 mmol/L (98-107); CK PROFILE 494 U/L (24-173); COSMO 267; CREATININE 0.9 mg/dL (0.5-0.9); ESTIMATED GFR > 60; GLUCOSE 83 mg/dL (70-104); GOT 28 U/L (10-30); GPT 17 U/L (10-36); POTASSIUM 3.3 mmol/L (3.5-5.1); SODIUM 135 mmol/L (136-145); TCO2 26 mmol/L (25-35); TOTAL BILIRUBIN 0.43 mg/dL (0.20-1.00); TOTAL PROTEIN 4.7 g/dL (6.3-8.3)
[2019-03-01 11:58] LABS: CALCIUM 5.7 mg/dL (8.8-10.2)
[2019-03-01] MEDS ORDERED: CALCIUM GLUCONATE 2 GM in NS 100 ML IV ONE (12:01)
[2019-03-01 12:19] LABS: CK INDEX 2.7 (0.0-2.5); CK-MB 13.47 ng/mL (0.0-5.0)
[2019-03-01 12:35] LABS: URINE SOURCE CLEAN CATCH
[2019-03-01 12:39] LABS: BILIRUBIN URINE NEGATIVE (NEGATIVE); BLOOD URINE NEGATIVE (NEGATIVE); COLOR YELLOW; GLUCOSE URINE NEGATIVE (NEGATIVE); KETONE URINE NEGATIVE (NEGATIVE); LEUKOCYTES URINE NEGATIVE (NEGATIVE); NITRITE URINE NEGATIVE (NEGATIVE); PH URINE 6.5; PROTEIN URINE NEGATIVE (NEGATIVE); SP GRAVITY URINE 1.005; TURBIDITY URINE CLEAR (CLEAR); UROBILINOGEN URINE NORMAL (NORMAL)
[2019-03-01 12:40] LABS: UR EPITHELIAL CELLS <10 /HPF (<10); URINE BACTERIA NEGATIVE /HPF; URINE RBC <10 /HPF (<10); URINE WBC <10 /HPF (<10)
--- NOTE | 2019-03-01 17:35 | PROVIDER DOCUMENTATION ---
HPI-Abdominal Pain/GI Problem - General Chief Complaint: N/V/D Stated Complaint: VOMITING,DIARRHEA Time Seen by Provider: 03/01/19 12:02 Source: patient, family (daughter at bedside) Allergies/Adverse Reactions: Patient Allergies Allergy/AdvReac Type Severity Reaction Status Date / Time No Known Allergies Allergy Verified 09/16/18 17:39 Home Medications: Home Medication List Medication Instructions Recorded Confirmed Last Taken Type Metoprolol Succinate E.r. [Toprol 100 mg PO DAILY #30 tablet 12/28/12 03/01/19 06/02/17 08:00 Rx Xl] Alprazolam [Xanax] 1 mg PO TID 06/18/13 03/01/19 09/20/18 07:30 History Lisinopril 20 mg PO DAILY 05/18/16 03/01/19 09/20/18 07:30 History Albuterol Sulfate [Albuterol 8.5 gm IH Q4-6H PRN PRN #2 06/02/17 03/01/19 09/20/18 07:30 Rx Sulfate Hfa] [email or web address] Omeprazole [Prilosec] 20 mg PO BID 06/02/17 03/01/19 09/19/18 21:00 History Albuterol Sulfate [Proair Hfa] 8.5 gm INH TID PRN 09/16/18 03/01/19 09/19/18 21:00 History Aspirin 81 mg PO DAILY 09/16/18 03/01/19 09/19/18 21:00 History Lactobacillus Rhamnosus GG 1 ea PO BID 30 Days #60 cap 03/03/19 Unknown Rx [Culturelle] Magnesium Oxide [Magnesium] 800 mg PO BID 30 Days #60 cap 03/03/19 Unknown Rx Nicotine Patch [Nicoderm Patch] 14 mg TD Q24H PRN PRN 14 Days #14 03/03/19 Unknown Rx patch.td24 - History of Present Illness-ABD Nature of Presenting Problems: 63 YO F pmh for COPD, CHF, and hx of C.Diff presents with c/o n/v/diarrhea x 2 weeks. She now has associated weakness. On exam, she is NAD and resting comfortably. She does have some cough. Abdominal Pain Onset Location: reports: generalized abdomen Pain Radiation: reports: no radiation Severity in ED: reports: mild Onset/Duration: reports: other (2 weeks ago) Activities at Onset: reports: none Exposure to sick contacts?: No Modifying Factors: improves with: nothing Associated Symptoms: reports: cough, diarrhea, loss of appetite, malaise, nausea , vomiting, weakness Last BM: this afternoon Dark Stools Present?: reports: none noticed Review of Systems - Adult - REVIEW OF SYSTEMS - ADULT Constitutional: denies: chills, fever Eyes: reports: no symptoms reported Ears, Nose, Mouth & Throat: reports: no symptoms reported Cardiovascular: denies: palpitations, syncope Respiratory: reports: cough Gastrointestinal: reports: see HPI Genitourinary: reports: no symptoms reported Musculoskeletal: reports: no symptoms reported Integumentary: reports: no symptoms reported Neurological: reports: other (weakness) Psychiatric: reports: no symptoms reported Endocrine: reports: no symptoms reported Hematologic/Lymphatic: reports: no symptoms reported Past History - Adult - PAST MEDICAL HISTORY-ADULT Review of Records: reports: Old Records Reviewed Major Childhood Illnesses: reports: denies history Cardiovascular: reports: CAD, HTN, [place] Respiratory: reports: asthma, COPD Gastrointestinal: reports: GERD, IBS, other (obstruction) Obstetrical/Gynecological: reports: other (cervical ca) Genitourinary: reports: denies history Musculoskeletal: reports: denies history Neurological: reports: denies history Psychiatric: reports: anxiety, depression Endocrine/Immune: reports: thyroid disorder Other Conditions: reports: denies history - PRIOR SURGERIES/PROCEDURES Surgical/Procedure History: reports: bowel surgery, other, appendectomy, cardiac stent - PRIOR HOSPITALIZATIONS Prior Hospitalizations: reports: for similar symptoms - IMMUNIZATION STATUS Childhood Immunizations: See Nurse Assessment Flu Vaccine: See Nurse Assessment - FAMILY HISTORY Family History: reviewed, not pertinent - SOCIAL HISTORY Smoking: cigarettes Substance Use: denies Living Situation: family Physical Exam-General - PHYSICAL EXAM-ADULT Initial Vital Signs Reviewed: Yes - CONSTITUTIONAL General Appearance: other (resting comfortably, NAD) - EYES Eyes: PERRL/EOMI, pink conjunctivae - HEAD, EARS, NOSE, MOUTH & THROAT HENMT: normocephalic/atraumatic, moist mucous membranes - RESPIRATORY Respiratory: rhonchi, other (cough on exam). negative: wheezing - CARDIOVASCULAR Cardiovascular: regular rate, rhythm - GASTROINTESTINAL (ABDOMEN) Abdominal Exam: non tender, soft, other (hyperactive bowel sounds) - MUSCULOSKELETAL Back Exam: no CVA tenderness Extremity: normal range of motion, normal gait, normal inspection, no pedal edema - SKIN Integumentary: normal color, normal turgor, warm/dry - NEUROLOGIC Neurologic: grossly normal - PSYCHIATRIC Psych/Mental Status: normal mood/affect, oriented x 3 Progress - PLAN OF CARE/RESULTS Progress/Plan/Lab Results: Vital Signs - 8 hr 03/01/19 11:01 03/01/19 12:40 03/01/19 15:39 Temperature 98.0 F 98.0 F 97.9 F Pulse Rate 88 79 78 Respiratory Rate 18 18 17 Blood Pressure 145/96 125/88 148/90 O2 Sat by Pulse Oximetry 97 98 99 03/01/19 16:47 Temperature 98.7 F Pulse Rate 77 Respiratory Rate 19 Blood Pressure 124/91 O2 Sat by Pulse Oximetry 96 03/01/19 15:06 Clostridioides difficile Toxin Assay - Final Stool 03/01/19 15:06 Clostridioides difficile Antigen - Final Stool Laboratory Results - last 24 hr 03/01/19 03/01/19 03/01/19 11:10 11:10 11:10 WBC 6.86 RBC 4.26 Hgb 12.9 Hct 37.8 MCV 88.7 MCH 30.3 MCHC 34.1 RDW Std Deviation 14.9 H Plt Count 228 MPV 11.3 H Immature Gran % (Auto) 0.0 Neut % (Auto) 78.3 H Lymph % (Auto) 13.3 L [place] % (Auto) 7.3 Eos % (Auto) 1.0 Baso % (Auto) 0.1 Immature Gran # (Auto) 0.00 Neut # (Auto) 5.37 Lymph # (Auto) 0.91 L [place] # (Auto) 0.50 Eos # (Auto) 0.07 Baso # (Auto) 0.01 Sodium 135 L Potassium 3.3 L Chloride 97 L Carbon Dioxide 26 Anion Gap 12 BUN 6 L Creatinine 0.9 Estimated GFR/1.73 m2 > 60 BUN/Creatinine Ratio 7 Glucose 83 Calculated Osmolality 267 Calcium 5.7 L* Total Bilirubin 0.43 AST 28 ALT 17 Alkaline Phosphatase 135 H Creatine Kinase 494 H Creatine Kinase Index 2.7 H CK-MB (CK-2) 13.47 H Troponin T < 0.010 Total Protein 4.7 L Albumin 2.4 L Globulin 2.3 Albumin/Globulin Ratio 1.0 Urine Source Urine Color Urine Turbidity Urine pH Ur Specific [place] Urine Protein Ur Glucose (Stick) Ur Ketones (Stick) Urine Blood Urine Nitrite Urine Bilirubin Urobilinogen Dipstick Urine Leukocytes Urine WBC (Auto) Urine RBC (Auto) U Epithel Cells (Auto) Urine Bacteria (Auto) 03/01/19 12:29 WBC RBC Hgb Hct MCV MCH MCHC RDW Std Deviation Plt Count MPV Immature Gran % (Auto) Neut % (Auto) Lymph % (Auto) [place] % (Auto) Eos % (Auto) Baso % (Auto) Immature Gran # (Auto) Neut # (Auto) Lymph # (Auto) [place] # (Auto) Eos # (Auto) Baso # (Auto) Sodium Potassium Chloride Carbon Dioxide Anion Gap BUN Creatinine Estimated GFR/1.73 m2 BUN/Creatinine Ratio Glucose Calculated Osmolality Calcium Total Bilirubin AST ALT Alkaline Phosphatase Creatine Kinase Creatine Kinase Index CK-MB (CK-2) Troponin T Total Protein Albumin Globulin Albumin/Globulin Ratio Urine Source CLEAN CATCH Urine Color YELLOW Urine Turbidity CLEAR Urine pH 6.5 Ur Specific [place] 1.005 Urine Protein NEGATIVE Ur Glucose (Stick) NEGATIVE Ur Ketones (Stick) NEGATIVE Urine Blood NEGATIVE Urine Nitrite NEGATIVE Urine Bilirubin NEGATIVE Urobilinogen Dipstick NORMAL Urine Leukocytes NEGATIVE Urine WBC (Auto) <10 Urine RBC (Auto) <10 U Epithel Cells (Auto) <10 Urine Bacteria (Auto) NEGATIVE Orders Category Date Time Status Orthostatic Vital Signs NOW Care 03/01/19 11:07 Active Saline Loc NOW Care 03/01/19 11:05 Active FLAT/UPRIGHT ABD/1 VIEW CHEST [RAD] Stat Exams 03/01/19 11:06 Completed C DIFF ANTIGEN [STOOL] Stat Lab 03/01/19 15:06 Completed C DIFF TOXIN [STOOL] Stat Lab 03/01/19 15:06 Completed CBC WITH ELECTRONIC DIFF [HEME] Stat Lab 03/01/19 11:10 Completed CK PROFILE [SP CHEM] Stat Lab 03/01/19 11:10 Completed COMPREHENSIVE METABOLIC PANEL [CHEM] Stat Lab 03/01/19 11:10 Completed TROPONIN T Stat Lab 03/01/19 11:10 Completed URINALYSIS W/POSS RFLX CULT [URINALYSIS] Stat Lab 03/01/19 12:29 Completed 0.9% Sodium Chloride Inj [Ns] 1,000 ml Med 03/01/19 11:07 Discontinued IV 999 mls/hr 0.9% Sodium Chloride Inj [Ns] 1,000 ml Med 03/01/19 14:50 Discontinued IV 999 mls/hr Calcium Gluconate 2 gm Med 03/01/19 12:01 Discontinued 0.9% Sodium Chloride Inj [Ns] 100 ml IV NOW Ondansetron [Zofran] Med 03/01/19 11:07 Discontinued 4 mg IV NOW ONE Result Diagrams: 03/02/19 07:25 03/02/19 07:25 - CONSULTS/PCP/HOSPITALIST Notification #1 *Consult/PCP/Hospitalist*: will admit to hospitalist, spoke with Renata Time Discussed: 18:27 Consult Disposition: Will see in ED, Admit Departure - Departure Date of Disposition Decision: 03/01/19 Time of Disposition Decision: 19:19 DIAGNOSIS: Generalized weakness, Dehydration, Hypocalcemia Nausea & vomiting Qualifiers: Vomiting type: unspecified Vomiting Intractability: unspecified Qualified Code(s): R11.2 - Nausea with vomiting, unspecified Disposition: ADMITTED INPATIENT 09 Certified Medical Emergency: Emergent Condition: Stable - Critical Care Note This patient required my direct & personal management of CC.: No Attestation - Physician/ SABRINA Attestation The physician spent face to face time with patient:: Yes Advanced Practice Provider documentation review:: Supervising physician onsite and consulted in the evaluation and care of this patient. The physician did have a face to face encounter with the patient.
[2019-03-01] MEDS ORDERED: DUONEB (A & A) INH ONE (18:10)
[2019-03-01] MEDS ORDERED: NS 1,000 ML ONE (18:16)
[2019-03-01] MEDS ORDERED: MAGNESIUM SULFATE 2 GM/S.W.I. 2 GM/50 ML IVPB IV ONE (21:20)
[2019-03-01 23:32] LABS: AGAP 13; BUN 6 mg/dL (8-22); CHLORIDE 106 mmol/L (98-107); CK PROFILE 353 U/L (24-173); COSMO 280; CREATININE 0.6 mg/dL (0.5-0.9); ESTIMATED GFR > 60; GLUCOSE 83 mg/dL (70-104); POTASSIUM 2.9 mmol/L (3.5-5.1); SODIUM 142 mmol/L (136-145); TCO2 23 mmol/L (25-35)
[2019-03-01 23:33] LABS: CALCIUM 5.7 mg/dL (8.8-10.2); MAGNESIUM 0.5 mg/dL (1.5-2.7)
[2019-03-01 23:49] LABS: CK INDEX 2.9 (0.0-2.5); CK-MB 10.14 ng/mL (0.0-5.0)
[2019-03-02] MEDS ORDERED: KLOR-CON POWDER PACKET PO ONE (01:03)
[2019-03-02] MEDS ORDERED: PHENERGAN IV PRN (01:17)
[2019-03-02] MEDS ORDERED: TYLENOL PO PRN (01:17)
[2019-03-02] MEDS ORDERED: SODIUM CHLORIDE 0.9% INJ PRN (01:17)
[2019-03-02] MEDS ORDERED: MORPHINE IV PRN (01:23)
[2019-03-02] MEDS ORDERED: SODIUM CHLORIDE 0.9% INJ SCH (01:30)
[2019-03-02] MEDS: POTASSIUM CHLORIDE 20 MEQ/SWI 20 MEQ/100 ML IVPB IV SCH ×2 (02:02→03:53)
[2019-03-02] MEDS: PROTONIX IV SCH ×2 (02:05→12:24)
[2019-03-02] MEDS ORDERED: CALCIUM GLUCONATE 1 GM in NS 50 ML IV ONE (03:24)
--- NOTE | 2019-03-02 03:45 | EKG Report ---
Test Performed on : 03/02/2019 03:10:44 AM Test Reason : Electrolyte Abnormalities Blood Pressure : / mmHG Vent. Rate : 085 BPM Atrial Rate : 085 BPM P-R Int : 094 ms QRS Dur : 074 ms QT Int : 432 ms P-R-T Axes : 048 036 -39 degrees QTc Int : 514 ms Sinus rhythm. with short WI Septal infarct , age undetermined Prolonged QT Abnormal ECG When compared with ECG of 26-JUL-2018 12:19, premature ventricular complexes. are no longer present Septal infarct is now present Nonspecific T wave abnormality now evident in Inferior leads T wave inversion no longer evident in Lateral leads Confirmed by Garland MADERA, Finn ([id number]) on 03/02/2019 8:51:56 AM
[2019-03-02] MEDS ORDERED: NICODERM PATCH TD PRN (04:46)
[2019-03-02] MEDS: DUONEB (A & A) INH SCH ×4 (05:00→21:14)
[2019-03-02] MEDS: MORPHINE IV PRN ×4 (05:10→21:37)
[2019-03-02] MEDS ORDERED: NS 1,000 ML IV SCH (07:00)
[2019-03-02 07:52] LABS: BASO# 0.01 X1000 (0.0-0.2); BASO% 0.3 % (0.0-0.8); EOS# 0.02 X1000 (0.0-0.7); EOS% 0.5 % (0.0-10.0); HEMATOCRIT 37.3 % (37.0-47.0); HEMOGLOBIN 12.5 g/dL (12.0-16.0); LYMPH# 0.51 X1000 (1.2-3.4); LYMPH% 13.1 % (20.5-51.1); MCH 29.8 PG (27-31); MCHC 33.5 g/dL (33-37); MONO# 0.38 X1000 (0.11-0.59); MONO% 9.8 % (1.7-9.3); MPV 11.3 FL (7.4-10.4); NEUT# 2.96 X1000 (1.4-6.5); NEUT% 76.3 % (42.2-75.2); PLT 225 X1000 (130-400); RBC 4.19 XMIL (4.2-5.4); RDW 15.1 % (11.5-14.5); WBC 3.88 X1000 (4.8-10.8)
[2019-03-02 08:17] LABS: AGAP 15; ALB/GLOB RATIO 0.8; ALBUMIN 2.1 g/dL (3.5-5.0); ALKALINE PHOSPHATASE 120 U/L (32-104); BUN 5 mg/dL (8-22); CHLORIDE 108 mmol/L (98-107); CK PROFILE 325 U/L (24-173); COSMO 282; CREATININE 0.6 mg/dL (0.5-0.9); ESTIMATED GFR > 60; GLUCOSE 67 mg/dL (70-104); GOT 25 U/L (10-30); GPT 15 U/L (10-36); PHOSPHORUS 3.3 mg/dL (2.7-4.5); POTASSIUM 3.6 mmol/L (3.5-5.1); SODIUM 144 mmol/L (136-145); TCO2 21 mmol/L (25-35); TOTAL BILIRUBIN 0.72 mg/dL (0.20-1.00); TOTAL PROTEIN 4.6 g/dL (6.3-8.3)
[2019-03-02 08:46] LABS: CK INDEX 2.7 (0.0-2.5); CK-MB 8.66 ng/mL (0.0-5.0)
[2019-03-02] MEDS: TOPROL XL PO SCH (08:49)
[2019-03-02] MEDS: MAG-OX PO SCH ×2 (08:49→21:36)
[2019-03-02] MEDS: MYCOSTATIN SUSP PO SCH ×4 (08:49→21:37)
[2019-03-02] MEDS: XANAX PO PRN ×2 (08:58→16:43)
[2019-03-02 09:04] LABS: CALCIUM 6.1 mg/dL (8.8-10.2)
--- NOTE | 2019-03-02 11:49 | HISTORY AND PHYSICAL ---
PRIMARY CARE PROVIDER: Dr. Ricco Sepulveda DATE AND TIME: 03/01/2019 at 2355. CHIEF COMPLAINT: Abdominal pain with nausea, vomiting, and diarrhea. HISTORY OF PRESENT ILLNESS: Ms. Paula is a 63-year-old, female who does have a history of short-bowel syndrome. She also has a history of having cervical cancer and did receive radiation. Due to this, she has had short-bowel syndrome and cervical cancer, and received radiation. She has had multiple abdominal surgeries and multiple problems with small bowel obstructions. She also does have a history of having chronic intermittent constipation and diarrhea, though according to previous records and patient report, there does appear to be more of a problem with diarrhea. She also has had problems with colitis in the past and in August of this year, did have a C. difficile infection. The patient states now for about a week and a half to two weeks, that she has had nausea, vomiting, and diarrhea, as well as abdominal pain. She states that this started off as only an episode or two of nausea and vomiting, as well as an episode or two of diarrhea. Over the last week and a half, this has steadily progressed. She has been having several episodes of both of these a day. She also reports that she has had some dark stools as well. She also reports that she has been having generalized crampy abdominal pain. She states this is intermittent as well. She was tender in the periumbilical and left upper quadrant area. She also has reported some dizziness. She reports that she has some shortness of breath early in the morning when she first wakes up, though she states this has been ongoing. This is not of new onset. The patient does have COPD and does still smoke a little over a half a pack a day. She also does have a nonproductive cough but states this has not worsened. She denies any fever, body aches, or chills. She denies any recent antibiotic use. She has reported a little dysuria, though denies any recent diagnosis of a urinary tract infection. She denies any numbness or tingling in the extremities. The patient does have arthritis and states that she has been having an aching type pain from this, though this pain is similar to her usual arthritic type pain. She also reports that she does have a history of having electrolyte abnormalities as well, given her short-bowel syndrome and problems with diarrhea. She denies any chest pain. Upon evaluation in the ER, she was afebrile. She has no leukocytosis noted. She was noted to have a potassium of 3.3 and a calcium of 5.7, as well as elevated CK, though her troponin was negative. They did perform an abdominal x-ray which did not show any acute findings. It did show stable surgical lines in the inferior pelvis as well as the bowels were moderately hyperinflated with gas, though this was nonspecific. She did have a C. difficile performed. The toxin was negative. The antigen was positive. The patient recently had a C. difficile infection in August. We did add on a magnesium level which did show a critical magnesium of 0.5. She has received IV magnesium sulfate, IV calcium gluconate, and IV and oral potassium. She did receive 2 L normal saline bolus in the ER as well. The patient will be admitted for further treatment and evaluation. REVIEW OF SYSTEMS: A 14-point review of systems was conducted with the patient. All were negative except for pertinent positives mentioned above in the HPI. PAST MEDICAL HISTORY: 1. History of COPD. 2. Nicotine dependence. 3. Congestive heart failure. 4. Coronary artery disease, status post coronary artery stent placement x3. 5. History of cervical cancer, status post radiation. 6. Short-bowel syndrome. 7. Problems with intermittent constipation and diarrhea. 8. Recurrent electrolyte abnormalities. 9. Hypertension. 10. History of tachycardia. 11. History of iron deficiency anemia. 12. Gastroesophageal reflux disease. 13. Malabsorption syndrome. PAST SURGICAL HISTORY: 1. Left elbow surgery. 2. Parathyroidectomy. 3. Multiple abdominal surgeries. 4. Coronary artery stent placement x3. 5. Appendectomy. SOCIAL HISTORY: The patient does continue to smoke. She is smoking a little over a half pack a day at this time. The patient denies any alcohol or illicit drug use. She is . The patient states she is not working at this time. FAMILY HISTORY: Positive for her mother passing away secondary to a blood clot. Her father had a history of lymphoma. ALLERGIES: The patient has no known allergies. HOME MEDICATIONS: 1. Albuterol sulfate HFA inhaler 8.5 g inhaled q.4-6 hours p.r.n. 2. Xanax 1 mg p.o. t.i.d. 3. Aspirin 81 mg p.o. daily. 4. Lisinopril 20 mg p.o. daily. 5. Magnesium oxide 800 mg p.o. b.i.d. 6. Toprol-XL 100 mg p.o. daily. 7. Prilosec 20 mg p.o. b.i.d. PHYSICAL EXAMINATION: VITAL SIGNS: Temperature 98 degrees, heart rate 82, respirations 15, blood pressure is 139/86, oxygen saturation is 96% on room air. GENERAL: Ms. Paula is a very pleasant, 63-year-old, female. She was resting in the inpatient bed. She was in no acute distress. She was awake, alert, and able to answer questions appropriately. HEENT: Head is atraumatic, normocephalic. Pupils are equal, round, reactive to light, were 3 mm bilaterally and brisk. Oral mucosa was moist. Oropharynx was clear except for she did have some oral candidiasis noted to the posterior tongue. NECK: Supple. Trachea midline. No JVD noted. CARDIOVASCULAR: The patient has S1-S2 present. No murmurs, gallops, or rubs appreciated. Regular rate and rhythm. PULMONARY: The patient has symmetrical chest expansion bilaterally. Lung sounds are clear to auscultation in bilateral full arevalo. ABDOMEN: Soft. Does not appear to be distended, though she did report some tenderness in the periumbilical and left upper quadrant area, though she was more tender in the left upper quadrant area just adjacent to her umbilicus. Bowel sounds were present in all 4 quadrants, were slightly hypoactive. EXTREMITIES: No cyanosis noted. The patient did have some trace edema noted in bilateral lower extremities. Pulse, motor, and sensory are intact in all extremities. Radial pulses were 2+. Pedal pulses were 1+ bilaterally. INTEGUMENTARY: The patient's skin is pink, warm, and dry. NEUROLOGICAL: The patient is alert and oriented to person, place, time, and situation. She is moving all extremities. There were no focal neurological deficits noted. DIAGNOSTIC DATA: White blood cell count is 6.86, hemoglobin 12.9, hematocrit 37.8, platelet count is 228,000. Sodium 135, potassium 3.3, chloride 97, BUN 6, creatinine 0.9, with a GFR greater than 60, glucose 83, calcium 5.7, magnesium 0.5. Liver function tests within normal limits except for alkaline phosphatase was elevated at 135. CK 494, CK index 2.7, CK-MB is 13.47, troponin was less than 0.01. Urinalysis was obtained via clean catch. It was negative for protein, glucose, ketones, blood, nitrites, leukocytes, white blood cells, or bacteria. EKG showed normal sinus rhythm at a rate of 79 with a QTc of 506. Abdomen x-ray showed a stable expansile area in the lateral posterior left rib. Stable advanced COPD with hyperexpanded lungs. There were some linear atelectasis in the right mid lung. There was calcified granuloma in the left lung base. There were no infiltrates or edema noted. There were stable surgical suture lines at the inferior pelvis. Bowels were moderately hyperinflated with gas, which was noted to be nonspecific. ASSESSMENT AND PLAN: 1. Nausea, vomiting, and diarrhea. The patient states this has been ongoing for a week and a half. It has progressively gotten worse. Though she has not had any further episodes of nausea and vomiting since arriving to the emergency room, and has been able to hold down half a bottle of water, she is still having episodes of diarrhea. She reports some of these have been dark in color. We have obtained stool studies and are awaiting those results at this time. We will continue with as needed antiemetics, though I have ordered low-dose Phenergan intravenous instead at this time versus Zofran. The patient did have hypokalemia, hypomagnesemia, and hypocalcemia, with an elevated QTc at 506. She is having some abdominal pain upon palpation and some crampy abdominal pain. She is not febrile. There is no leukocytosis noted. I did consider ordering a CT of the abdomen and pelvis, though given that the patient's symptoms seemed to have improved since arriving to the emergency room, I will await gastroenterology's evaluation and let them decide if they would like to do further imaging. We have placed a consult with Dr. Seymour. Dr. Diamond has seen her in the past, though she has not seen him recently. We will place her on Protonix 40 mg intravenously every 24 hours. We will await gastroenterology evaluation for further recommendations for management. 2. Fluid volume depletion. The patient has received a 2 L normal saline bolus in the emergency room. She has also received fluids with piggyback administration of electrolytes. We have placed her with gentle intravenous hydration with normal saline at 100 mL per hour. She does have a history of congestive heart failure, so we will monitor her fluid volume status closely. We will do strict intake and output. 3. Electrolyte abnormalities. The patient does have hypokalemia, hypomagnesemia, and hypocalcemia. These have all been replaced. We will recheck all of these electrolytes this morning as well. She is on continuous cardiac telemetry with frequent vital signs every 4 hours. 4. Coronary artery disease, status post coronary stent placement x3. The patient does take aspirin 81 mg by mouth daily for this, though given that she has been reporting some dark stools, until we receive her Hemoccult stool results and she has been evaluated by gastroenterology, will we will hold this at this time. Later, if able to do so, this does need to be started back, given her cardiac history. 5. History of hypertension and tachycardia. The patient has not been hypotensive or tachycardic. We will continue her Toprol. Given her volume depletion, we will hold her lisinopril at this time. 6. Chronic obstructive pulmonary disease. We will continue with scheduled DuoNeb treatments. We will do incentive spirometry and encouragement of frequent turn, cough, and deep breathing. 7. History of congestive heart failure. As previously mentioned, we will monitor her fluid volume status closely. We will do strict intake and output, though I do feel the patient was a little volume depleted, which I think this has improved since receiving fluids. 8. Oral candidiasis. We have placed the patient with nystatin suspension. 9. Deep vein thrombosis prophylaxis. We provided with sequential compression devices. The patient has been placed on the medical floor with telemetry. She will have vital signs every 4 hours. She will be on continuous cardiac telemetry. We will do a clear liquid diet at this time. She is able to hold liquids down. She has not had any further episodes of nausea and vomiting since arriving to the emergency room. We will recheck a CBC, CK, troponin, CMP, magnesium, phosphorus, and an ionized calcium in the morning. Further orders and recommendations pending hospital course, diagnostic studies, and physician evaluation. Dictated by EDWARD Villavicencio for Bernardino Reese MD I have performed a face to face diagnostic evaluation. Labs/ Xray- reviewed, Exam- Chest- clear, CV- regular, Abd- soft. A/P- N/V/D, volume depletion- Admit, IV fluids, antiemetics, supportive care. Dr. Reese cc: Bernardino Reese MD [facility]
[2019-03-02] MEDS ORDERED: VANCOCIN PO SCH (13:00)
--- NOTE | 2019-03-02 14:29 | GASTROENTEROLOGY CONSULTATION ---
DATE: 03/02/2019 REASON FOR CONSULTATION: Diarrhea. HISTORY OF PRESENT ILLNESS: Ms. Paula is a 63-year-old female who has a history of cervical cancer approximately 15 years back. She has received radical radiation as her treatment and is seeing Dr. Sevilla. The patient also mentioned that due to the radiation her colon has been damaged and she had multiple colon resections done in the past. The patient also has a history of constipation and diarrhea, and has been having colitis in the past with the C. Diff infection. She mentioned that she had come yesterday morning to the ER feeling sick of her stomach. She had nausea, vomiting, and diarrhea and lack of appetite, and all this has been going for the last 2 weeks onwards. She mentioned that she has lost approximately 3 pounds. Five days back, patient mentioned that she had taken Pepto-Bismol and noticed that her stools were dark and tarry. The patient did have a history of heart attack and has 3 stents. She takes a baby aspirin 81 mg daily. Today, the patient denied any nausea or vomiting, or having any bowel movements, but she said yesterday she had a couple of bowel movements. Her stool studies have shown that she has C-d toxin assay negative and C-difficile toxin antigen was positive. The stools for WBCs had a few WBC's and stool for occult blood was negative. Abdominal x-ray yesterday showed that the findings were nonspecific. PAST MEDICAL HISTORY: History of COPD, congestive heart failure, coronary artery disease status post 3 stent placements, history of cervical cancer status post radiation, short-bowel syndrome, problems with colitis with intermittent constipation and diarrhea, hypertension, history of iron deficiency anemia, GERD, malabsorption syndrome, and nicotine dependency. PAST SURGICAL HISTORY: Left elbow surgery. Parathyroidectomy. Multiple abdominal surgeries with colon resections. Coronary artery stent placements x3 and Appendectomy. SOCIAL HISTORY: The patient is , and has 4 kids. She denied any alcohol or illicit drug use, but does smoke less than 1 pack of cigarettes daily. ALLERGIES: No known drug allergies. HOME MEDICATIONS: 1. Metoprolol succinate 100 mg daily. 2. Xanax 1 mg 3 times a day. 3. Lisinopril 20 mg daily. 4. Magnesium oxide 800 mg p.o. twice a day. 5. Albuterol sulfate 8.5 g inhaler p.r.n. every 4 to 6 hours as needed. 6. Omeprazole 20 mg twice a day. 7. Aspirin 81 mg daily. 8. ProAir inhaler 3 times a day as needed. FAMILY HISTORY: Her mom had blood clots and her dad had history of lymphoma. REVIEW OF SYSTEMS: As per HPI. Otherwise, 12 point review of system is negative. PHYSICAL EXAMINATION: Vital Signs: Temperature 98.6 degrees, pulse 89, respirations 14, blood pressure 142/97, oxygen saturation 98% on 2 L nasal cannula. The patient's weight is 86 pounds. BMI is 14.8 kg/m2. General: She is alert and oriented x3 answering questions appropriately and in no acute distress. HEENT: Pale conjunctivae. No icterus. PERRL. Neck: Supple. Lungs: Clear to auscultation in the anterior arevalo. Cardiovascular: Regular rate and rhythm. Abdomen: Soft, nontender, and nondistended. Multiple surgical scars from the previous surgeries. Active bowel sounds heard in all 4 quadrants. Extremities: No clubbing, no cyanosis, no edema. Pedal pulses 2+ present bilaterally. Neurologic: She is alert and oriented x3. Nonfocal. Cranial nerves 2-12 grossly intact. LABORATORY DATA: WBCs 3.88, RBC 4.19, hemoglobin 12.5, hematocrit 37.3, and platelet count 225,000. Sodium 144, potassium 3.6, chloride 108. Carbon dioxide 21, anion gap 15, BUN 5, creatinine 0.6, glucose 67, calcium 6.1, phosphorus 3.3, magnesium 1.0, total bilirubin 0.72, AST 25, ALT 15, alkaline phosphatase 120, and albumin 2.1. Urinalysis was negative. Abdominal x-ray had nonspecific findings. ASSESSMENT AND PLAN: Nausea and Vomiting Diarrhea COPD Hypertension CAD s/p stent placement History of cervical cancer s/p radiation PLAN: Ms. Paula is a 63 year old female with the history of cervical cancer s/p radiation, GI has been consulted for nausea, vomiting and diarrhea. The patient's C. difficile toxin assay was negative, but the C. Difficile antigen was positive. We have started her on Dificid 200 mg twice a day for her recurrent C-diff, for her nausea and vomiting she is on phenegran 6.25 mg every 4 hours. The patient is on GI prophylaxis Protonix 40 mg IV twice a day. She is receiving IV fluids normal saline at 100 mL/h. Patient is currently on clear liquid diet. We will continue to monitor her nausea and vomiting, and advance the diet as tolerated. We will continue to monitor the patient, and follow the plan of care for PCP. This plan was discussed with Dr. Fleming. Thank you for your consult. Please call us for any further questions or concerns. Dictated by EDWARD Tesfaye for Junior Fleming MD Physician Attestation I have seen and examined the patient. I have discussed and reviewed the note by Lupis LEON and agree with findings and plan as documented. In brief, Ms. Casie Paula is a 63 year old woman with h/o COPD, GERD with esophagitis, treated H pylori gastritis, colonic polyp, prior SB resection, and recent treatment for C diff treated with oral vancomycin who presents with diarrhea found to have recurrent Cdiff. Will treat with Dificid given recurrence. Advance diet as tolerated to GI soft. Continue PPI and antiemetics prn. Last EGD and colonoscopy was in 08/2018. I do not think she has short gut syndrome. This occurs with the patient has less than 100cm of small bowel left after resection. Will follow with you. Stop magnesium. MTDD
[2019-03-02] MEDS: DIFICID PO SCH ×2 (16:43→21:36)
[2019-03-03] MEDS: PROTONIX IV SCH ×2 (01:04→13:10)
[2019-03-03] MEDS: DUONEB (A & A) INH SCH ×2 (03:36→11:22)
[2019-03-03] MEDS: DIFICID PO SCH (08:55)
[2019-03-03] MEDS: MAG-OX PO SCH (08:56)
[2019-03-03] MEDS: TOPROL XL PO SCH (08:56)
[2019-03-03] MEDS: MYCOSTATIN SUSP PO SCH ×3 (08:56→16:15)
[2019-03-03] MEDS: MORPHINE IV PRN (08:59)
[2019-03-03] MEDS ORDERED: CALCIUM GLUCONATE 1 GM in NS 50 ML IV ONE (09:40)
[2019-03-03] MEDS ORDERED: POTASSIUM CHLORIDE 20 MEQ/SWI 20 MEQ/100 ML IVPB IV ONE (10:00)
--- NOTE | 2019-03-03 10:05 | PROGRESS NOTE ---
DATE: 03/03/2019 She is followed by Dr. Ricco Sepulveda. This is a 63-year-old who presented with nausea, vomiting, and diarrhea. She says she has had a history of short-bowel syndrome. She has a history of having cervical cancer and did receive radiation. Due to this, she has had short-bowel syndrome and has received multiple abdominal surgeries. Underwent multiple medical problems with small bowel obstructions. She has a history of chronic intermittent constipation and diarrhea. There appears to be more of a problem with her diarrhea, problem with colitis. Apparently, she has had Clostridium difficile colitis in the past. In August of this year, had C. difficile infection. States that now, for about a week and a half, she has had nausea, vomiting, diarrhea, and abdominal pain. It started off as an episode of 2 episodes of vomiting and then 2 of diarrhea. She has had some dark stools. She has generalized cramping abdominal pain. On evaluation in the emergency room, she had no leukocytosis. Noted to have a potassium of 3.3, calcium 5.7, elevated CK, troponin was negative. Abdominal x-ray showed no acute findings. PAST MEDICAL HISTORY: 1. COPD. 2. Nicotine dependence. 3. Congestive heart failure. 4. Coronary artery disease, status post coronary artery stent placement x3. 5. History of cervical cancer, status post radiation. 6. Short-bowel syndrome. 7. Problems with intermittent constipation and diarrhea. 8. Recurrent electrolyte abnormalities. 9. Hypertension. 10. History tachycardia. 11. History of iron deficiency anemia. 12. Gastroesophageal reflux disease. 13. Malabsorption syndrome. PAST SURGICAL HISTORY: 1. Left elbow surgery. 2. Parathyroidectomy. 3. Multiple abdominal surgeries. 4. Coronary artery stent placement x3. 5. Appendectomy. ADMISSION DIAGNOSES: 1. Nausea, vomiting, and diarrhea that had been going on for a week. Not any further episodes of nausea while she was in the emergency room. She feels better this morning. She wants to go home. I told her we are going to watch her today and we will see how she does with eating. A CT of the abdomen and pelvis was considered but the patient has improved in symptomatology. I did consult Dr. Seymour. Dr. Diamond has seen her in the past, placed her on Protonix 40 mg intravenous every 24 hours. 2. Volume depletion. Continue to give her fluid. We will follow her electrolyte abnormalities. I do not see any sign of active cardiac ischemia. Her breathing is comfortable. LABORATORY DATA: Review of lab from yesterday, white count 3880, hematocrit 37, platelet count 225,000. Sodium 144, potassium 3.6, came up from 2.9 yesterday. Calcium was 6.1. Magnesium came up from 0.5 to 1.0 so we will continue to supplement. cc: Fernando Kuhn MD
[2019-03-03] MEDS: VANCOCIN PO SCH ×2 (10:18→13:12)
[2019-03-03] MEDS: POTASSIUM CHLORIDE 20 MEQ/SWI 20 MEQ/100 ML IVPB IV SCH ×2 (11:18→12:52)
--- NOTE | 2019-03-03 12:09 | GASTROENTEROLOGY PROGRESS NOTE ---
DATE: 03/03/2019 SUBJECTIVE: Ms. Paula is a 63-year-old, female, who was sitting in bed and wanted to know if she was getting discharged. The patient has denied any nausea, vomiting, abdominal and no bowel movements today. OBJECTIVE: Vital Signs: Temperature 98.5, pulse 88, respirations 21, blood pressure is 158/95, oxygen saturation is 98%. She is on room air. The patient's weight is 86 pounds. BMI is 14.8 kg/m2. General: She is alert and oriented x3, and in no acute distress. HEENT: Pale conjunctivae. No icterus. PERRL. Neck: Supple. Lungs: Clear to auscultation in the anterior arevalo. Cardiovascular: Regular rate and rhythm. Abdomen: Soft, nontender, nondistended. Active bowel sounds heard in all 4 quadrants. Extremities: No clubbing, no cyanosis, no edema. Pedal pulses 2+ present bilaterally. Neurologic: She is alert and oriented x3. LABORATORY DATA: WBCs are 3.88, RBC 4.19, hemoglobin 12.5, hematocrit 37.3, platelet count is 225,000. Sodium 144, potassium 3.6, chloride 108, carbon dioxide 21, anion gap 15, BUN is 5, creatinine is 0.6, glucose 67, calcium is 6.1. Phosphorus 3.3, magnesium is 1.0. Total bilirubin 0.72, AST 25, ALT is 15, alkaline phosphatase 120, albumin is 2.1. IMPRESSION: Nausea and Vomiting Diarrhea COPD CAD s/p stent placement History of cervical cancer s/p radiation History of recurrent C-diff Nicotine dependency PLAN: Ms. Paula is a 63-year-old female with a history of cervical cancer, status post radiation, and is followed by GI for nausea, vomiting, and diarrhea. The patient's Clostridium difficile antigen was positive, and she is receiving Dificid 200 mg twice a day for her recurrent Clostridium difficile for 10 days. The patient's nausea and vomiting is under control, she is on Phenergan 6.25 mg every 4 hours as needed. The patient is also receiving GI Protonix 40 mg IV twice a day. The patient was on clear liquids. We had advanced her diet to a GI soft diet. Her diarrhea is also under control. Will continue to monitor the patient, and follow the plan of care per PCP. This plan was discussed with Dr. Helton. Please call us for any further questions or concerns. Dictated by EDWARD Tesfaye for Jeet Helton MD cc: Jeet Helton MD I have seen and examined the patient myself and I agree with the above plan of care. I have discussed the above with the patient and all questions were answered. Please call us with any questions or concerns. KADY
[2019-03-03 15:26] VITALS: BP 175/91
--- NOTE | 2019-03-03 16:53 | DISCHARGE SUMMARY ---
ADMISSION DATE: 03/01/2019 DISCHARGE DATE: 03/03/2019 HISTORY AND HOSPITAL COURSE: This is a patient of Dr. Ricco Sepulveda. A 63-year-old who does have a history of short-bowel syndrome, history of having cervical cancer, and did receive radiation. Due this short-bowel syndrome and because of radiation, she has had multiple abdominal surgeries. She has a history of chronic intermittent constipation and diarrhea according to previous records. She had been treated for Clostridium difficile starting back in August of this year. She presented with more abdominal pain, nausea, and vomiting. She states that it started off with only 2 episodes of nausea and vomiting, as well as 2 of diarrhea. Over the last week though it steadily progressed and has had several episodes a day of the nausea, vomiting, abdominal cramping. She reported some dizziness and had a little bit of shortness of breath. The patient does have COPD and still smokes over a half a pack a day. Denies any fever, body aches, chills. Denies any recent antibiotic use. Reported a little bit of dysuria. Denies any diagnosis of urinary tract infection. In the emergency room, she had some leukocytosis. Noted to have a potassium of 3.3, calcium of 5.7, and elevated CK. Her troponin was negative, but her magnesium was low as well. We checked stools again. It was positive for antigen, but negative for toxin. The diarrhea resolved. The nausea seemed to resolve. Gave her some fluid. She appeared to be volume contracted and we gave her some magnesium and potassium and she felt much better. Gave her a little bit of calcium as well and was requesting to go home. Dr. Helton evaluated her and from his standpoint, he felt she could go home as well. She was eating. Encouraged her to continue p.o. intake and make sure she is eating well. We will send her home with some magnesium supplement. She is on Xanax 1 mg t.i.d., aspirin 81 mg a day, lisinopril 20 mg a day, magnesium oxide which is 800 mg b.i.d., she has a prescription for that, metoprolol succinate which is Toprol-XL 100 mg p.o. daily, and Prilosec 20 mg b.i.d. I believe she was already on Dificid 200 mg twice a day and I think she was getting some prophylaxis. She received some Protonix while she was here but really did not have much complaints of dyspepsia in that way, but I think we will keep her on Protonix 40 mg a day. Encourage to continue a soft diet. Follow up with her primary care and her wild [employer]. cc: Fernando Kuhn MD
[2019-03-03] MEDS ORDERED: CULTURELLE PO SCH (21:00)
== END 2019-03-03 16:46 | disposition home or self-care (01) | DRG 372 ==
LOC: ED 10:56 → SUATTDRO 21:39 → 3N 21:39
PROVIDERS: ATTEND Emergency Medicine